=== PATIENT | female | born 1965 | race Caucasian/White ===

== ENCOUNTER 2020-05-09 07:13 | Outpatient (REF) | payer OTHER, SELFPAY ==
[2020-05-09 08:58] LABS: Alanine Aminotransferase 14 U/L (0-31); Anion Gap 9 (12-20); Aspartate Amino Transferase 13 U/L (5-31); Blood Urea Nitrogen 13 mg/dL (9-16); Calcium 8.9 mg/dL (8.4-10.2); Carbon Dioxide 31 mmol/L (22-29); Chloride 103 mmol/L (96-108); Cholesterol 186 mg/dL; Estimated Glomerular Filt Rate > 60; Glucose Random 120 mg/dL (60-115); HDL Cholesterol 44 mg/dL; LDL Cholesterol Calculated 75 mg/dl; Potassium 4.1 mmol/l (3.3-5.1); Sodium 139 mmol/L (135-145); Triglycerides 335 mg/dL
[2020-05-09 09:18] LABS: Vitamin D 25-OH Total 42.3 ng/mL (>30)
[2020-05-09 09:19] LABS: Estimated Average Glucose 114 mg/dL; Hemoglobin A1c % 5.6 %
== END 2020-05-09 07:14 | disposition home or self-care (01) ==
LOC: HO.LAB 07:13
PROVIDERS: PCP Internal Medicine; Visit Provider Internal Medicine
DX: E78.2 Mixed hyperlipidemia (principal); E55.9 Vitamin D deficiency, unspecified; R73.01 Impaired fasting glucose; Z78.0 Asymptomatic menopausal state
CPT/HCPCS: 80048; 80061; 82306; 83036; 84450; 84460

== ENCOUNTER → 2020-07-03 10:22 | Outpatient (BNVA) | payer OTHER, SELFPAY | PROVIDERS: PCP Internal Medicine; Referring Provider Internal Medicine; Visit Provider Dietitian, Registered | DX: Z76.89 Persons encountering health services in other specified circumstances (principal) ==

== ENCOUNTER 2020-09-17 | Outpatient (REF) | payer OTHER, SELFPAY ==
[2020-09-17 08:40] LABS: MANUAL DIFF FLAG NO
[2020-09-17 08:45] LABS: Basophils Percent Auto 0.2 % (0-2); Eosinophils Absolute Auto 0.2 X10*3/uL (0.0-0.4); Eosinophils Percent Auto 2.6 % (0-4); Hematocrit 42.8 % (37-47); Imm Gran Abs Auto 0.02 X10*3/uL (0.00-0.03); Imm Gran Pct Auto 0.2 % (0.0-0.4); Lymphocytes Absolute Auto 1.6 X10*3/uL (1.2-4.9); Mean Corpuscular HGB Conc 32.7 g/dl (31.0-35.0); Mean Corpuscular Hemoglobin 28.5 pg (27.0-33.0); Mean Platelet Volume 8.8 fL (9.4-12.3); Monocytes Absolute Auto 0.5 X10*3/uL (0.1-1.2); Monocytes Percent Auto 5.7 % (2-11); Neutrophils Absolute Auto 5.9 X10*3/uL (2.0-8.3); Neutrophils Percent Auto 71.3 % (45-73); Platelet Count 339 X10*3/uL (160-400); Red Blood Count 4.92 X10*6/uL (4.20-5.50); Red Cell Distribution Width 13.5 % (11.0-16.0); White Blood Count 8.2 X10*3/uL (4.8-10.8)
[2020-09-17 09:15] LABS: Lithium 0.83 mmol/L (0.60-1.20)
[2020-09-17 09:17] LABS: Alanine Aminotransferase 15 U/L (0-31); Anion Gap 13 (12-20); Aspartate Amino Transferase 13 U/L (5-31); Blood Urea Nitrogen 11 mg/dL (9-16); Calcium 9.5 mg/dL (8.4-10.2); Carbon Dioxide 29 mmol/L (22-29); Chloride 101 mmol/L (96-108); Cholesterol 192 mg/dL; Estimated Glomerular Filt Rate > 60; Glucose Fasting 109 mg/dL (60-99); HDL Cholesterol 45 mg/dL; LDL Cholesterol Calculated 80 mg/dl; Potassium 4.2 mmol/L (3.3-5.1); Sodium 139 mmol/L (135-145); Triglycerides 339 mg/dL
[2020-09-17 09:20] LABS: Alanine Aminotransferase 16 U/L (0-31); Albumin Level 4.3 g/dL (3.5-5.0); Alkaline Phosphatase 42 U/L (39-117); Anion Gap 14 (12-20); Aspartate Amino Transferase 13 U/L (5-31); Bilirubin Total 0.3 mg/dL (0.0-1.0); Blood Urea Nitrogen 11 mg/dL (9-16); Calcium 9.5 mg/dL (8.4-10.2); Carbon Dioxide 28 mmol/L (22-29); Chloride 101 mmol/L (96-108); Estimated Glomerular Filt Rate > 60; Glucose Random 110 mg/dL (60-115); Potassium 4.3 mmol/L (3.3-5.1); Sodium 139 mmol/L (135-145); Total Protein 7.4 g/dL (6.5-8.0)
[2020-09-17 09:41] LABS: Thyroid Stimulating Hormone 2.89 uIU/mL (0.32-4.0)
== END 2020-09-17 00:01 | disposition home or self-care (01) ==
LOC: HO.LAB
PROVIDERS: PCP Internal Medicine; Visit Provider Internal Medicine
DX: E55.9 Vitamin D deficiency, unspecified (principal); I10 Essential (primary) hypertension; E78.2 Mixed hyperlipidemia; Z78.0 Asymptomatic menopausal state; R73.01 Impaired fasting glucose
CPT/HCPCS: 36415; 80048; 80053; 80061; 80178; 82306; 84443; 84450; 84460; 85025

== ENCOUNTER → 2020-10-09 08:53 | Outpatient (BNVA) | payer OTHER, SELFPAY | PROVIDERS: PCP Internal Medicine; Visit Provider Dietitian, Registered ==

== ENCOUNTER → 2021-01-13 13:27 | Outpatient (BNVA) | payer OTHER, SELFPAY | PROVIDERS: PCP Internal Medicine; Visit Provider Dietitian, Registered | DX: R73.01 Impaired fasting glucose (principal) | CPT/HCPCS: 97803 ==

== ENCOUNTER 2021-02-17 07:29 | Outpatient (REF) | payer OTHER, SELFPAY ==
[2021-02-17 11:35] LABS: Estimated Average Glucose 123 mg/dL; Hemoglobin A1C 150.2735 umol/L; Hemoglobin A1c % 5.9 %
[2021-02-17 11:51] LABS: Alanine Aminotransferase 17 U/L (0-31); Aspartate Amino Transferase 13 U/L (5-31); Cholesterol 207 mg/dL; HDL Cholesterol 35 mg/dL; Triglycerides 462 mg/dL
== END 2021-02-17 07:30 | disposition home or self-care (01) ==
LOC: HO.HMGCLDS 07:29
PROVIDERS: PCP Internal Medicine; Visit Provider Internal Medicine
DX: E55.9 Vitamin D deficiency, unspecified (principal); E78.2 Mixed hyperlipidemia; R73.01 Impaired fasting glucose; Z78.0 Asymptomatic menopausal state
CPT/HCPCS: 36415; 80061; 83036; 84450; 84460

== ENCOUNTER 2021-02-27 07:39 | Outpatient (REF) | payer OTHER, SELFPAY ==
--- NOTE | ~2021-02-27 | MM_ITS ---
EXAMINATION: MM SCREENING DIGITAL BREAST TOMOSYNTHESIS, BILATERAL CLINICAL INFORMATION: Screening. Asymptomatic. The lifetime risk of breast cancer based on the Tyrer-Cuzick Model is 12%. COMPARISON: Mammography: 02/22/2020, 02/16/2019, 02/09/2018 TECHNIQUE: Digital breast tomosynthesis is performed in both the craniocaudal and mediolateral oblique views along with computer-aided detection (CAD). Synthesized 2D images are generated from the tomosynthesis. FINDINGS: The breasts are almost entirely fatty (ACR BI-RADS breast composition Category a). There are no significant masses, abnormal calcifications, or other abnormalities. The axilla and skin contours are unremarkable. Background stromal markings are stable. There is biopsy clip marker again noted central mid 12:00 left breast. No significant changes. MM/MM tomosynthesis screening BI IMPRESSION: No mammographic evidence of malignancy. ASSESSMENT: BI-RADS 1: Negative RECOMMENDATION: Routine annual mammography screening. This patient's information was entered into a reminder system with a target due date for their next mammogram.
== END 2021-02-27 07:40 | disposition home or self-care (01) ==
LOC: HO.MAMMO 07:39
PROVIDERS: PCP Internal Medicine; Visit Provider Internal Medicine
DX: Z12.31 Encounter for screening mammogram for malignant neoplasm of breast (principal)
CPT/HCPCS: 77063; 77067

== ENCOUNTER → 2021-05-14 09:54 | Outpatient (BNVA) | payer OTHER, SELFPAY | PROVIDERS: PCP Internal Medicine; Visit Provider Dietitian, Registered | DX: R73.01 Impaired fasting glucose (principal) | CPT/HCPCS: 97803 ==

== ENCOUNTER 2021-05-28 08:41 | Outpatient (REF) | payer OTHER, SELFPAY ==
[2021-05-28 11:59] LABS: Alanine Aminotransferase 12 U/L (0-31); Aspartate Amino Transferase 12 U/L (5-31); Cholesterol 136 mg/dL; HDL Cholesterol 41 mg/dL; LDL Cholesterol Calculated 57 mg/dl; Triglycerides 192 mg/dL
[2021-05-29 10:31] LABS: LDL Cholesterol Direct 59 mg/dL (<100)
== END 2021-05-28 08:42 | disposition home or self-care (01) ==
LOC: HO.HMGCLDS 08:41
PROVIDERS: PCP Internal Medicine; Visit Provider Internal Medicine
DX: E78.2 Mixed hyperlipidemia (principal)
CPT/HCPCS: 36415; 80061; 83721; 84450; 84460

== ENCOUNTER → 2021-09-16 11:00 | Outpatient (BNVA) | payer OTHER, SELFPAY | PROVIDERS: PCP Internal Medicine; Visit Provider Dietitian, Registered | DX: R73.01 Impaired fasting glucose (principal) | CPT/HCPCS: 97803 ==

== ENCOUNTER 2021-10-13 09:23 | Outpatient (REF) | payer OTHER, SELFPAY ==
--- NOTE | ~2021-10-13 | XR_ITS ---
EXAMINATION: XR FOOT, LEFT CLINICAL INFORMATION: Other enthesopathy of foot and ankle. COMPARISON: None. TECHNIQUE: AP, lateral, and oblique views of the left foot. FINDINGS: Bone alignment is normal. No fracture or dislocation is seen. There are degenerative changes at the talonavicular and navicular 1st cuneiform joint with joint space narrowing and osteophyte formation. There is a calcaneal spur at the Achilles tendon insertion. Soft tissues are otherwise unremarkable. XR/XR foot LT min 3V IMPRESSION: Degenerative changes of the midfoot and calcaneal spur at the Achilles tendon insertion.
== END 2021-10-13 09:24 | disposition home or self-care (01) ==
LOC: HO.HMGCX 09:23
PROVIDERS: Visit Provider Internal Medicine
DX: M77.50 Other enthesopathy of unspecified foot and ankle (principal)
CPT/HCPCS: 73630

== ENCOUNTER 2021-11-25 09:41 | Outpatient (REF) | payer OTHER, SELFPAY ==
[2021-11-25 11:41] LABS: Alanine Aminotransferase 14 U/L (0-31); Aspartate Amino Transferase 14 U/L (5-31); Cholesterol 155 mg/dL; HDL Cholesterol 42 mg/dL; LDL Cholesterol Calculated 72 mg/dl; Triglycerides 208 mg/dL
== END 2021-11-25 09:42 | disposition home or self-care (01) ==
LOC: HO.HMGCLDS 09:41
PROVIDERS: Visit Provider Internal Medicine
DX: E78.2 Mixed hyperlipidemia (principal)
CPT/HCPCS: 36415; 80061; 84450; 84460

== ENCOUNTER → 2021-12-15 09:04 | Outpatient (BNVA) | payer OTHER, SELFPAY | PROVIDERS: PCP Internal Medicine; Visit Provider Dietitian, Registered | DX: R73.01 Impaired fasting glucose (principal) | CPT/HCPCS: 97803 ==

== ENCOUNTER 2022-02-01 08:24 | Outpatient (REF) | payer OTHER, SELFPAY ==
[2022-02-02 12:27] LABS: BV Int Neg Control Negative (Negative); BV Int Pos Control Positive (Positive)
[2022-02-04 18:21] LABS: HPV mRNA E6/E7 rflx Not Detected (Not Detected)
== END 2022-02-01 08:25 | disposition home or self-care (01) ==
LOC: HO.LAB 08:24
PROVIDERS: Visit Provider Advanced Practice Midwife
DX: Z01.419 Encounter for gynecological examination (general) (routine) without abnormal findings (principal); Z11.51 Encounter for screening for human papillomavirus (HPV); N76.0 Acute vaginitis
CPT/HCPCS: 87480; 87510; 87624; 87660; 88142

== ENCOUNTER 2022-03-03 07:28 | Outpatient (REF) | payer OTHER, SELFPAY ==
--- NOTE | ~2022-03-03 | MM_ITS ---
EXAMINATION: MM SCREENING DIGITAL BREAST TOMOSYNTHESIS, BILATERAL CLINICAL INFORMATION: Screening. Asymptomatic. The lifetime risk of breast cancer based on the Tyrer-Cuzick Model is 12%. COMPARISON: Mammography: 02/27/2021, 02/22/2020, 02/16/2019 TECHNIQUE: Digital breast tomosynthesis is performed in both the craniocaudal and mediolateral oblique views along with computer-aided detection (CAD). Synthesized 2D images are generated from the tomosynthesis. Additional right cleavage view and bilateral CC views are provided. FINDINGS: The breasts are almost entirely fatty (ACR BI-RADS breast composition Category a). There are no significant masses, abnormal calcifications, or other abnormalities. There is biopsy clip marker 12:00 left breast. Background stromal markings are normal. No developing density. The axilla are unremarkable. No significant changes. MM/MM tomosynthesis screening BI IMPRESSION: No mammographic evidence of malignancy. ASSESSMENT: BI-RADS 1: Negative RECOMMENDATION: Routine annual mammography screening. This patient's information was entered into a reminder system with a target due date for their next mammogram.
== END 2022-03-03 07:29 | disposition home or self-care (01) ==
LOC: HO.MAMMO 07:28
PROVIDERS: PCP Internal Medicine; Visit Provider Internal Medicine
DX: Z12.31 Encounter for screening mammogram for malignant neoplasm of breast (principal)
CPT/HCPCS: 77063; 77067

== ENCOUNTER → 2022-03-17 08:57 | Outpatient (BNVA) | payer OTHER, SELFPAY | PROVIDERS: PCP Internal Medicine; Visit Provider Dietitian, Registered | DX: R73.01 Impaired fasting glucose (principal); Z71.3 Dietary counseling and surveillance | CPT/HCPCS: 97803 ==

== ENCOUNTER → 2022-06-02 11:26 | Outpatient (BNVA) | payer OTHER, SELFPAY | PROVIDERS: PCP Internal Medicine; Visit Provider Dietitian, Registered | DX: R73.01 Impaired fasting glucose (principal); Z71.3 Dietary counseling and surveillance | CPT/HCPCS: 97803 ==

== ENCOUNTER 2022-09-23 07:56 | Outpatient (REF) | payer OTHER, SELFPAY ==
[2022-09-23 12:04] LABS: Estimated Average Glucose 128 mg/dL; Hemoglobin A1c % 6.1 %
[2022-09-23 12:17] LABS: Alanine Aminotransferase 17 U/L (0-31); Anion Gap 12 (12-20); Aspartate Amino Transferase 15 U/L (5-31); Blood Urea Nitrogen 11 mg/dL (9-16); Calcium 8.6 mg/dL (8.4-10.2); Carbon Dioxide 26 mmol/L (22-29); Chloride 106 mmol/L (96-108); Cholesterol 151 mg/dL; Estimated Glomerular Filt Rate > 60; Glucose Fasting 121 mg/dL (60-99); HDL Cholesterol 40 mg/dL; LDL Cholesterol Calculated 67 mg/dl; Potassium 4.3 mmol/L (3.3-5.1); Sodium 140 mmol/L (135-145); TSH reflex Free T4 2.35 uIU/mL (0.32-4.0); Triglycerides 223 mg/dL; Vitamin D 25-OH Total 26.1 ng/mL (>30)
== END 2022-09-23 07:57 | disposition home or self-care (01) ==
LOC: HO.HMGCLDS 07:56
PROVIDERS: PCP Internal Medicine; Visit Provider Internal Medicine
DX: E55.9 Vitamin D deficiency, unspecified (principal); E78.2 Mixed hyperlipidemia; F31.9 Bipolar disorder, unspecified; R73.01 Impaired fasting glucose; Z78.0 Asymptomatic menopausal state
CPT/HCPCS: 36415; 80048; 80061; 82306; 83036; 84443; 84450; 84460

== ENCOUNTER → 2022-09-29 08:58 | Outpatient (BNVA) | payer OTHER, SELFPAY | PROVIDERS: PCP Internal Medicine; Visit Provider Dietitian, Registered | DX: R73.01 Impaired fasting glucose (principal) | CPT/HCPCS: 97803 ==

== ENCOUNTER 2022-11-04 07:14 | Outpatient (REF) | payer OTHER, SELFPAY ==
--- NOTE | ~2022-11-04 | XR_ITS ---
EXAMINATION: XR HUMERUS, LEFT CLINICAL INFORMATION: Fracture COMPARISON: None available. TECHNIQUE: AP and lateral views of the left humerus. FINDINGS: There is a minimally displaced fracture of the greater tuberosity of the humerus. No other fracture. Glenohumeral alignment is normal. There is mild osteoarthritis at the acromioclavicular joint. Soft tissues are unremarkable. XR/XR humerus LT IMPRESSION: Minimum minimally displaced left greater tuberosity fracture.
== END 2022-11-04 07:15 | disposition home or self-care (01) ==
LOC: HO.HOSX 07:14
PROVIDERS: Visit Provider Physician Assistant
DX: S42.202A Unspecified fracture of upper end of left humerus, initial encounter for closed fracture (principal); W18.30XA Fall on same level, unspecified, initial encounter; Y93.54 Activity, bowling; Y92.9 Unspecified place or not applicable; Y99.9 Unspecified external cause status
CPT/HCPCS: 73060; 99202

== ENCOUNTER → 2022-11-25 09:20 | Outpatient (BNVA) | payer OTHER, SELFPAY | PROVIDERS: PCP Internal Medicine; Visit Provider Dietitian, Registered | DX: R73.01 Impaired fasting glucose (principal) | CPT/HCPCS: 97803 ==

== ENCOUNTER 2022-12-02 08:47 | Outpatient (REF) | payer OTHER, SELFPAY ==
--- NOTE | ~2022-12-02 | XR_ITS ---
EXAMINATION: XR SHOULDER, LEFT CLINICAL INFORMATION: Pain. COMPARISON: Radiographs dated 11/04/2022. TECHNIQUE: AP neutral and scapula Y views of the left shoulder are submitted. FINDINGS: There is bony demineralization. There is subluxation of the left glenohumeral joint. A mildly displaced fracture is redemonstrated of the greater tuberosity of the proximal left humerus, in stable alignment. There is very mild periosteal callus formation noted. An additional hairline, nondisplaced fracture is suspected of the left humeral neck. The acromioclavicular and coracoclavicular intervals are normal. No abnormal soft tissue calcification or foreign body is seen. There is no left pneumothorax. XR/XR shoulder LT min 2V IMPRESSION: There is stable mild displacement of a fracture of the greater tuberosity of the proximal left humerus. There is mild associated periosteal callus formation. A nondisplaced hairline fracture is now suspected of the left humeral neck.
== END 2022-12-02 08:48 | disposition home or self-care (01) ==
LOC: HO.HOSX 08:47
PROVIDERS: Visit Provider Physician Assistant
DX: S42.202D Unspecified fracture of upper end of left humerus, subsequent encounter for fracture with routine healing (principal)
CPT/HCPCS: 73030

== ENCOUNTER 2023-01-11 07:40 | Outpatient (REF) | payer OTHER, SELFPAY ==
--- NOTE | ~2023-01-11 | XR_ITS ---
EXAMINATION: XR SHOULDER, LEFT CLINICAL INFORMATION: Reason for Exam M25.519 - Pain in unspecified shoulder COMPARISON: 12/02/2022 shoulder radiographs TECHNIQUE: Two views of the shoulder. FINDINGS: No acute fracture or dislocation. Again seen is a fracture of the greater tuberosity and left humeral neck with bridging bony callus formation suggesting ongoing healing, in unchanged alignment. Mild degenerative changes of the glenohumeral and acromioclavicular joints with degenerative spurring. Soft tissues are unremarkable. XR/XR shoulder LT min 2V IMPRESSION: 1. Again seen is a fracture of the greater tuberosity and left humeral neck with bridging bony callus formation suggesting ongoing healing, in unchanged alignment. 2. Mild degenerative changes of the shoulder.
== END 2023-01-11 07:41 | disposition home or self-care (01) ==
LOC: HO.HOSX 07:40
PROVIDERS: Visit Provider Physician Assistant
DX: M25.512 Pain in left shoulder (principal)
CPT/HCPCS: 73030; 99212

== ENCOUNTER 2023-01-13 07:08 | Outpatient (REF) | payer OTHER, SELFPAY ==
[2023-01-13 11:27] LABS: Estimated Average Glucose 117 mg/dL; Hemoglobin A1c % 5.7 %
[2023-01-13 11:54] LABS: Alanine Aminotransferase 15 U/L (0-31); Anion Gap 13 (12-20); Aspartate Amino Transferase 16 U/L (5-31); Blood Urea Nitrogen 14 mg/dL (9-16); Carbon Dioxide 26 mmol/L (22-29); Chloride 106 mmol/L (96-108); Cholesterol 135 mg/dL; Estimated Glomerular Filt Rate > 60; Glucose Fasting 124 mg/dL (60-99); HDL Cholesterol 39 mg/dL; LDL Cholesterol Calculated 54 mg/dl; Potassium 3.8 mmol/L (3.3-5.1); Sodium 141 mmol/L (135-145); Triglycerides 213 mg/dL
[2023-01-13 12:17] LABS: Vitamin D 25-OH Total 33.9 ng/mL (>30)
== END 2023-01-13 07:09 | disposition home or self-care (01) ==
LOC: HO.HMGCLDS 07:08
PROVIDERS: PCP Internal Medicine; Visit Provider Internal Medicine
DX: E55.9 Vitamin D deficiency, unspecified (principal); E78.2 Mixed hyperlipidemia; R73.01 Impaired fasting glucose; Z78.0 Asymptomatic menopausal state
CPT/HCPCS: 36415; 80048; 80061; 82306; 83036; 84450; 84460

== ENCOUNTER 2023-02-04 07:54 | Outpatient (AMB) | payer OTHER, SELFPAY ==
--- NOTE | 2023-02-04 07:55 | MHC.OFFVIS ---
Intake Vital Signs 02/04/23 07:56 Height 5 ft 2 in Weight 247 lb BMI 45.2 BP 132/80 Intake Visit Reasons: shaw Intake Note: no concerns The patient agreed to use of a neuropsychology medical consultant during this encounter. Scribed for LOLA Mccauley by Randi Panda neuropsychology medical consultant, on 02/04/2023 at 8:15 am EST Director Of Business Development Required: No Information Interpreted: non-clinical & clinical Care Team Assistant: Care Team Assistant Present (Saida Bolton SCOTT) Accompanied by: Self / Same As Patient Allergies No Known Allergies [No Known Allergies*] Allergy (Verified 02/04/23 08:01) Post menopausal: Yes HPI HPI Comments History of Present Illness Details She is a postmenopausal woman presenting for annual exam. 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 She attempts to eat a healthy diet including Calcium and Vitamin D and tries to active. 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 Denies vaginal itching and irritation. STD screening offered; she accepts. Last pap smear 2021. ASCUS with +HPV, ECC-CIN1 in 2019. Last mammogram 03/03/22. UTD on colonoscopy. [facility] Medical History ASCUS with positive high risk HPV Bipolar disorder Fracture of humerus, proximal, left, closed GERD (gastroesophageal reflux disease) Hx of fall Impaired fasting glucose Intertrigo Menopause Mild intermittent asthma Mixed dyslipidemia Psoriasis Seasonal allergies Tinea corporis Trigeminal neuralgia of left side of face Vitamin D deficiency Surgical History History of endometrial ablation Family History Father History of CVA (cerebrovascular accident) Lung cancer Depression Mother Diabetes mellitus Maternal Grandmother Diabetes mellitus Breast cancer Maternal Aunt Breast cancer Diabetes mellitus Maternal Uncle Colon cancer Brother No problems noted. Brother No problems noted. Sister No problems noted. Sister No problems noted. Son Mental health disorder Son No problems noted. Social History Household Members: None Housing: Apartment Alcohol intake: never Patient Tobacco Use Status: Former Tobacco user Years Smoked: 15 yrs e-Cigarette/Vaping Use: Never Used Second Hand Smoke Exposure: Yes service: No Current occupational status: unemployed Current occupation: right hand dominant Sexual orientation: Straight/Heterosexual Gender identity: Female Cognitive needs: No Hearing needs: No Vision needs: Yes Female Reproductive History Menstrual Menopause type: natural Total pregnancies: 2 Full term: 2 Number of Living Children: 2 Date of last pap smear: 02/02/22 Date of Mammogram: 03/03/22 Review of Systems Const All systems reviewed & are unremarkable except as noted in HPI and below Physical Exam Vital Signs: Last Vital Signs BP 132/80 02/04/23 07:56 BMI result Body Mass Index 45.2 Const General: cooperative, healthy appearing, no acute distress, well developed and alert Orientation/consciousness: patient oriented x3 HEENT Head: Yes normal to inspection Eyes General: appearance normal, both eyes and all related structures Neck Neck: Yes normal visual inspection Thyroid: Thyroid normal Chest Chest palpation & inspection: normal inspection of the chest Breast/axilla inspection: normal inspection of the breasts (no puckering, dimpling, peau de orange, retraction, discharge, masses) Breast/axilla palpation: normal palpation of the breasts Resp Effort & Inspection: normal respiratory effort GI Inspection: Yes normal to inspection and Yes obesity Palpation (GI): Soft to palpation Rectal Exam - Female: deferred General: Yes bladder normal to palpation External Female Exam: normal external appearance and normal appearance of the urethra Speculum Exam - Vagina: normal appearance of the vagina, normal palpation, normal vaginal discharge and vagina atrophic Speculum Exam - Cervix: normal appearance of the cervix, normal palpation and Other cervical findings present (atrophic changes) Bimanual exam- vagina & uterus: normal bimanual exam, normal palpation, uterine size normal, bladder normal to palpation and normal palpation Bimanual Exam- Adnexa, other: normal adnexae and no masses Skin General skin exam: no rashes or lesions noted Neuro General: patient oriented x3 Cognition (Neuro): normal cognition Extrem General: Yes normal to inspection Psych Attitude: cooperative Thought process: Normal thought process present Assessment & Plan Assessment & Plan (1) Encounter for well woman exam: Code(s): Z01.419 - Encounter for gynecological examination (general) (routine) without abnormal findings Plan: Discussed: Current recommendations for pap smears per ASCCP guidelines. Pap obtained. Breast awareness and periodic self breast exams. Encouraged yearly mammograms. Maintaining a healthy lifestyle including a well balanced diet including Calcium and Vitamin D and routine exercise. Contact office with any PMB. All of her questions and concerns were addressed to the best of my ability. RTO in one year for AG. Orders: Orders Pap Smear Today Z01.419 - Encounter for gynecological examination (general) (routine) without abnormal findings Coding Level of Care Code Est Pt Prev Care 40-64y(72699) Diagnoses Encounter for well woman exam Z01.419
[2023-02-04 07:56] VITALS: BP 132/80; BMI 45.2
== END 2023-02-04 08:25 | disposition home or self-care (01) ==
PROVIDERS: PCP Internal Medicine; Visit Provider Advanced Practice Midwife
DX: Z01.419 Encounter for gynecological examination (general) (routine) without abnormal findings (principal)
CPT/HCPCS: 99396

== ENCOUNTER 2023-02-04 07:54 | Outpatient (REF) | payer OTHER, SELFPAY ==
[2023-02-11 08:59] LABS: HPV mRNA E6/E7 rflx Not Detected (Not Detected)
== END 2023-02-04 07:55 | disposition home or self-care (01) ==
LOC: HO.LNP 07:54
PROVIDERS: PCP Internal Medicine; Visit Provider Advanced Practice Midwife
DX: Z01.419 Encounter for gynecological examination (general) (routine) without abnormal findings (principal); Z11.51 Encounter for screening for human papillomavirus (HPV)
CPT/HCPCS: 87624; 88142

== ENCOUNTER 2023-03-03 10:00 | Outpatient (RCR) | payer OTHER, SELFPAY ==
--- NOTE | 2023-03-03 12:12 | MHC.PT.DC ---
[facility] [place] Office [place] Office [place] Office [address] Dheeraj Dos Santos [address] [phone] F: [phone] F: [phone] F: [phone] F: [phone] Physical Therapy Discharge Report Diagnosis: Proximal Humerus Fracture L Date of Surgery: Date of Evaluation: 12/16/22 Date of Discharge: Treatments to Date: 18 Cancellations to Date: No Shows to Date: Discharge Status: Discharge Summary: Haritha is in agreement with discharge today. she has met most of her goals and has improved her function. She is independent with HEP. She has been an active participant in her recovery. If patient remains compliant with exercise program at home then she should continue to see improvement in pain and function. Electronically signed by: Please sign and return to therapist. Thank you for your referral.
== END 2023-03-03 12:15 | disposition home or self-care (01) ==
LOC: HO.PTCHIC 10:00
PROVIDERS: Visit Provider Physician Assistant
DX: S42.202A Unspecified fracture of upper end of left humerus, initial encounter for closed fracture (principal)
CPT/HCPCS: 97110; 97140; 97161

== ENCOUNTER 2023-03-04 07:44 | Outpatient (REF) | payer OTHER, SELFPAY ==
--- NOTE | ~2023-03-04 | MM_ITS ---
EXAMINATION: MM SCREENING DIGITAL BREAST TOMOSYNTHESIS, BILATERAL CLINICAL INFORMATION: Screening. Asymptomatic. COMPARISON: Mammography: This study is compared with prior exams dating back to 2018. TECHNIQUE: Digital breast tomosynthesis is performed in both the craniocaudal and mediolateral oblique views along with computer-aided detection (CAD). Synthesized 2D images are generated from the tomosynthesis. FINDINGS: The breasts are almost entirely fatty (ACR BI-RADS breast composition Category a). There are no significant masses, abnormal calcifications, or other abnormalities. There is tissue marker present in the upper outer quadrant of the left breast from prior benign percutaneous biopsy. MM/MM tomosynthesis screening BI IMPRESSION: No mammographic evidence of malignancy. ASSESSMENT: BI-RADS BI-RADS 2 - Benign Findings RECOMMENDATION: Routine annual mammography screening. 1 year F/U This examination should not preclude the clinical evaluation of a suspicious palpable abnormality. This patient's information was entered into a reminder system with a target due date for their next mammogram.
== END 2023-03-04 07:45 | disposition home or self-care (01) ==
LOC: HO.MAMMO 07:44
PROVIDERS: PCP Internal Medicine; Visit Provider Internal Medicine
DX: Z12.31 Encounter for screening mammogram for malignant neoplasm of breast (principal)
CPT/HCPCS: 77063; 77067

== ENCOUNTER → 2023-03-04 08:00 | Outpatient (BNV) | payer OTHER, SELFPAY | PROVIDERS: PCP Internal Medicine; Visit Provider Radiology Diagnostic Radiology | DX: Z12.31 Encounter for screening mammogram for malignant neoplasm of breast (principal) | CPT/HCPCS: 77063; 77067 ==

== ENCOUNTER 2023-03-07 08:41 | Outpatient (AMB) | payer OTHER, SELFPAY ==
[2023-03-07 08:59] VITALS: BMI 45.6
--- NOTE | 2023-03-07 08:59 | MHC.AMNUTRGE ---
Intake VS Expanded 03/07/23 08:59 Height 5 ft 2 in Weight 249 lb 9.012 oz BMI 45.6 Intake Visit Reasons: pre DM Allergies No Known Allergies [No Known Allergies*] Allergy (Verified 02/04/23 08:01) HPI Nutrition Presentation Details Pt presents for MNT for pre DM Pt reports keeping sedentary related to injuries (arm, going for PT) Following healthy plate method, working on reducing total carbs. Most Recent Diabetes Results: Cholesterol 135 mg/dL 01/13/23 HDL Cholesterol 39 mg/dL 01/13/23 Triglycerides 213 mg/dL 01/13/23 Creatinine 0.87 mg/dL (0.5-1.4) 01/13/23 Blood Urea Nitrogen 14 mg/dL (9-16) 01/13/23 Sodium 141 mmol/L (135-145) 01/13/23 Potassium 3.8 mmol/L (3.3-5.1) 01/13/23 Chloride 106 mmol/L (96-108) 01/13/23 Carbon Dioxide 26 mmol/L (22-29) 01/13/23 Calcium 9.0 mg/dL (8.4-10.2) 01/13/23 AST 16 U/L (5-31) 01/13/23 ALT 15 U/L (0-31) 01/13/23 [facility] Medical History ASCUS with positive high risk HPV Bipolar disorder Fracture of humerus, proximal, left, closed GERD (gastroesophageal reflux disease) Hx of fall Impaired fasting glucose Intertrigo Menopause Mild intermittent asthma Mixed dyslipidemia Psoriasis Seasonal allergies Tinea corporis Trigeminal neuralgia of left side of face Vitamin D deficiency Surgical History History of endometrial ablation Family History Father History of CVA (cerebrovascular accident) Lung cancer Depression Mother Diabetes mellitus Maternal Grandmother Diabetes mellitus Breast cancer Maternal Aunt Breast cancer Diabetes mellitus Maternal Uncle Colon cancer Brother No problems noted. Brother No problems noted. Sister No problems noted. Sister No problems noted. Son Mental health disorder Son No problems noted. Social History Household Members: None Housing: Apartment Alcohol intake: never Patient Tobacco Use Status: Former Tobacco user Years Smoked: 15 yrs e-Cigarette/Vaping Use: Never Used Second Hand Smoke Exposure: Yes service: No Current occupational status: unemployed Current occupation: right hand dominant Sexual orientation: Straight/Heterosexual Gender identity: Female Cognitive needs: No Hearing needs: No Vision needs: Yes Assessment & Plan Assessment & Plan (1) Impaired fasting glucose: Code(s): R73.01 - Impaired fasting glucose Plan: Review low fat/low cholesterol food concepts and Ca , Vit D sources of foods est kcal needs as per [place] [facility] Jeor: 1625 kcal/day (40% carb, 30% fat/prot) est prot needs as per 0.8-1.0 g adjusted Bw (73 kg) = 58-73 g/day est fluid needs as per 25 ml/kg bw: 1825 ml/d. Rec fiber intake 12-25 g as tolerated NA: < 1500 mg/d Noted A1c at 6.1% on 09/2022 (increased from previous A1c) and Tg at 223 mg/dl (09/2022) increased from 208 mg/dl Educate patient on: (R= Reviewed, V = verbalizes understanding N/R= Needs review N/A= not applicable) Difference between complex carbohydrates and simple carbohydrates, role of fiber: R Differences between fats (MUFA/PUFA/saturated fats, trans fats) and food sources of various fats: R Food sources of sodium and salt and healthy modifications for heart health and kidney health: R Vitamins and minerals: R Physical activity: benefits and precaution: R (when cleared by MD) Patient Instructions: Continue working on reducing fats, empty calories snacks Continue to watching total carbs at meal time , reduce to 45 g or less at meal time Choose foods with collagen (bone broth, gelatin, fish) choose a serving at least once a day keep hydrated by having water with meals Coding Level of Care Code Nutr Indiv Subseq (51226) Diagnoses Impaired fasting glucose R73.01 Time Spent (min) 25
== END 2023-03-07 09:39 | disposition home or self-care (01) ==
PROVIDERS: PCP Internal Medicine; Visit Provider Dietitian, Registered
DX: R73.01 Impaired fasting glucose (principal)

== ENCOUNTER → 2023-03-07 08:41 | Outpatient (BNVA) | payer OTHER, SELFPAY | PROVIDERS: Visit Provider Dietitian, Registered | DX: R73.01 Impaired fasting glucose (principal); Z71.3 Dietary counseling and surveillance | CPT/HCPCS: 97803 ==

== ENCOUNTER 2023-03-08 08:36 | Outpatient (REF) | payer OTHER, SELFPAY ==
--- NOTE | ~2023-03-08 | XR_ITS ---
EXAMINATION: XR SHOULDER, LEFT CLINICAL INFORMATION: Pain COMPARISON: Previous x-ray most recent December 2022 TECHNIQUE: Two views of the left shoulder. FINDINGS: Healing left humeral neck and greater tuberosity fracture appears unchanged. Mild arthritis at the acromioclavicular and glenohumeral joints. Normal soft tissues. XR/XR shoulder LT min 2V IMPRESSION: Healing left humeral neck and greater tuberosity fracture.
== END 2023-03-08 08:37 | disposition home or self-care (01) ==
LOC: HO.HOSX 08:36
PROVIDERS: Visit Provider Physician Assistant
DX: S42.202A Unspecified fracture of upper end of left humerus, initial encounter for closed fracture (principal)
CPT/HCPCS: 73030

== ENCOUNTER 2023-05-11 08:04 | Outpatient (REF) | payer OTHER, SELFPAY ==
[2023-05-11 11:31] LABS: Estimated Average Glucose 120 mg/dL; Hemoglobin A1c % 5.8 % (<6.0)
[2023-05-11 11:53] LABS: Alanine Aminotransferase 17 U/L (0-31); Aspartate Amino Transferase 16 U/L (5-31); Cholesterol 164 mg/dL (<200); Glucose Fasting 108 mg/dL (60-99); HDL Cholesterol 43 mg/dL (>40); LDL Cholesterol Calculated 73 mg/dL (<100); Triglycerides 243 mg/dL (<150)
[2023-05-11 11:56] LABS: Vitamin D 25-OH Total 40.5 ng/mL (>30)
== END 2023-05-11 08:05 | disposition home or self-care (01) ==
LOC: HO.HMGCLDS 08:04
PROVIDERS: PCP Internal Medicine; Visit Provider Internal Medicine
DX: E55.9 Vitamin D deficiency, unspecified (principal); R73.01 Impaired fasting glucose; E78.2 Mixed hyperlipidemia; Z78.0 Asymptomatic menopausal state
CPT/HCPCS: 36415; 80061; 82306; 82947; 83036; 84450; 84460

== ENCOUNTER 2023-05-13 09:09 | Outpatient (AMB) | payer OTHER, SELFPAY ==
[2023-05-13 10:00] VITALS: BP 128/84; PULSE 83; O2SAT 98; BMI 45.9
--- NOTE | 2023-05-13 10:00 | A.OFFPC_ITS ---
Vital Signs 05/13/23 10:00 Height 5 ft 2 in Weight 251 lb 2 oz BMI 45.9 BP 128/84 Blood Pressure Location Rt brachial Position Sitting Pulse 83 Pulse Source Pulse Oximeter Pulse Oximetry (%) 98 Oxygen Delivery Method Room Air Intake Visit Reasons: Annual PE Allergies No Known Allergies [No Known Allergies*] Allergy (Verified 10/31/23 10:59) Medication List - Last Reconciled 05/13/23 by Raquel Hurley MD acetaminophen mg PO albuterol sulfate 90 mcg/actuation 2 inhalations inhalation Q6H PRN atorvastatin 20 mg PO DAILY bupropion HCl 300 mg PO QAM carbamazepine 200 mg PO BID cetirizine 10 mg PO BEDTIME clotrimazole-betamethasone 1-0.05 % 1 appl topical BID 4 weeks diclofenac sodium 1% (Arthritis Pain (diclofenac)) 2 grams topical QID PRN fluticasone propionate 50 mcg/actuation 1 spray intranasal DAILY ibuprofen 600 mg PO Q6H PRN lithium carbonate ER 0 mg PO omega-3 fatty acids-fish oil 300-1,000 mg 1 cap PO BID omeprazole 20 mg PO DAILY Tobacco use date assessed: 05/13/23 Dental Screening Dental Screen Date: 05/13/23 Did you have a dental visit in the last 12 months?: No Did you have a dental problem in the last 6 months where you did not have access to dental care?: No Was dental information given to patient?: No HPI Annual PE HPI Details 58-year-old lady with hyperlipidemia, mi ld intermittent asthma, chronic GERD, psoriasis, impaired fasting glucose, trigeminal neuralgia, history of left humeral fracture 09/2022 and bipolar disorder, here today for her physical exam. She is up-to-date with her screening mammogram and screening for cervical cancer and is up-to-date with her screening colonoscopy last done in 2015 with negative findings, due again in 2025. Has been feeling well with no complaints at pres ent. Compliant with her medications [facility] Medical History (Updated 12/07/23 @ 02:32 by Raquel Hurley MD) Hx of fall Fracture of humerus, proximal, left, closed Intertrigo Tinea corporis Trigeminal neuralgia of left side of face ASCUS with positive high risk HPV Seasonal allergies Bipolar disorder Vitamin D deficiency Menopause Mild intermittent asthma GERD (gastroesophageal reflux disease) Psoriasis Impaired fasting glucose Mixed dyslipidemia Surgical History History of endometrial ablation Family History Father History of CVA (cerebrovascular accident) Lung cancer Depression Mother Diabetes mellitus Maternal Grandmother Diabetes mellitus Breast cancer Maternal Aunt Breast cancer Diabetes mellitus Maternal Uncle Colon cancer Brother No problems noted. Brother No problems noted. Sister No problems noted. Sister No problems noted. Son Mental health disorder Son No problems noted. Social History Household Members: None Housing: Apartment Alcohol intake: never Patient Tobacco Use Status: Former Tobacco user Years Smoked: 15 yrs e-Cigarette/Vaping Use: Never Used Second Hand Smoke Exposure: Yes service: No Current occupational status: unemployed Current occupation: right hand dominant Sexual orientation: Straight/Heterosexual Gender identity: Female Cognitive needs: No Hearing needs: No Vision needs: Yes Questionnaire Thrive Questionnaire Date Thrive assessed: 10/27/22 I am a: Patient What is your living situation today?: I have a place to live, but I am worried about losing it in the future Within the past 12 months, did the food you bought not last and you didn't have the money to get more?: Sometimes True Within the past 12 months, did you worry whether your food would run out before you got money to buy more?: Sometimes True Please select the resources that you would like help with: None AUDIT C Alcohol Use Questionnaire (AUDIT-C) 1. How often do you have a drink containing alcohol?: Monthly or less 2. How many drinks containing alcohol do you have on a typical day when you are drinking?: 1 or 2 3. How often do you have six or more drinks on one occasion?: Never Total Score: 1 SAM-7 AMB Questionnaire SAM-7 Date SAM - 7 assessed: 10/14/22 Feeling nervous, anxious, or on edge: 1 = Several days Not being able to stop or control worryin = Not at all Worrying too much about different things: 1 = Several days Trouble relaxin = Several days Being so restless that it is hard to sit still: 0 = Not at all Becoming easily annoyed or irritable: 0 = Not at all Feeling afraid as if something awful might happen: 0 = Not at all Total SAM-7 score (0-4 normal; 5-9 mild; 10-14 moderate; 15-21 severe): 3 Source: Developed by Drs. Brett Espinoza, Allison Rutledge, Yanick Mac and colleagues, with an educational aleksey from [employer]. Review of Systems Const Denies body aches, Denies fever(s), Denies headache(s) and Denies weakness Eyes Details: Goes to [address] [place] [address] for routine eye exam, currently up-to-date ENT Denies dizziness, Denies headache(s), Denies nasal congestion, Denies nasal discharge and Denies sore throat Card Denies chest pain, Denies lightheadedness and Denies dyspnea Resp Denies chest congestion, Denies cough and Denies dyspnea GI Denies abdominal pain, Denies change in bowel habits and Denies heartburn Reports no additional complaints Musc Details: History of fracture of left humerus 09/2022 after a fall while bowling Reports no additional complaints Skin/Breast Denies breast pain and Denies breast mass Neuro Denies dizziness, Denies headache(s) and Denies weakness Psych Reports no additional complaints Endo Reports no additional complaints Wagner/Lymph Denies easy bleeding and Denies easy bruising Aller/Immun Reports no additional complaints Physical exam (Primary Care) Vital Signs: Last Vital Signs Pulse 83 05/13/23 10:00 BP 128/84 05/13/23 10:00 Pulse Ox 98 05/13/23 10:00 Oxygen Delivery Method Room Air 05/13/23 10:00 BMI result Body Mass Index 45.9 BMI Assessment/Plan discussion: High BMI High, discussed plan: lifestyle, dietary and physical activity Tobacco/Smoking Status: Tobacco use Status Tobacco use date assessed 05/13/23 05/13/23 10:04 Patient Tobacco Use Status Former Tobacco user 05/13/23 10:04 e-Cigarette/Vaping Use Never Used 05/13/23 10:04 Thrive Assessment: Date of Thrive Assessment Date Thrive assessed 10/27/22 05/13/23 10:04 Const General: comfortable, no acute distress and alert Nutritional Appearance: obese morbidly obese Orientation/consciousness: patient oriented x3 HENMT Mouth: Normal oral and palatal mucosa present, oropharynx normal and moist mucous membranes Eyes General: appearance normal, both eyes and all related structures Neck Neck: Yes full ROM, Yes no lymphadenopathy, Yes no meningeal signs and Yes supple Chest Breast/axilla palpation: normal palpation of the breasts Resp Effort & Inspection: normal respiratory effort and able to speak in complete sentences Auscultation: clear to auscultation bilaterally Cardio Rate: regular rate Rhythm: regular rhythm Heart sounds: S1 normal heart sound present and S2 normal heart sound present GI Palpation (GI): Soft to palpation, nontender and no masses Auscultation: normal bowel sounds Other: Goes to [facility] for her routine Pap and pelvic exam Back/Spine/Pelvis Back: No back tenderness Skin General skin exam: no rashes or lesions noted Neuro General: patient oriented x3, gait normal, tone normal, moves all extremities, Normal light touch and pain sensation, no meningeal signs and no focal motor deficits Extrem General: Yes full ROM, Yes no joint enlargement, Yes no clubbing, cyanosis or edema and Yes normal gait Psych Appearance: grossly normal and well kempt Mental Status: mental status grossly normal Speech and movement: Normal speech and movement present Affect: normal affect Office Procedures Flu Questionnaire Does the patient have a severe egg allergy?: No Does the patient have severe life threatening allergies?: No Does the patient have a fever or illness today?: No Has the patient ever had Guillain-[place] Syndrome?: No Has the patient ever had any past reaction to a flu shot?: No Immunizations flu vacc [id number] 6mos up(PF) 60 mcg(15 mcgx4)/0.5 mL IM syringe Performing Provider: Raquel Hurley MD Performing Location: [facility] Administered by: Nora Ramirez CMA on 05/13/23 10:16 Dose Route Admin Location Dispensed Lot Number Expiration Date NDC Internal Affairs Commander 0.5 mL IM Right Deltoid 0.5 mL [id number] 01/22/24 [id number] Clinicbook VIS Given Date VIS Provided VIS Publication Date 05/13/23 Single Vaccine 21 Eligibility Eligibility Date Funding Source Not [facility] Eligible 05/13/23 Private Results Reviewed Results Reviewed: Laboratory Tests 05/11/23 08:10 Estimat Average Glucose 120 Hemoglobin A1c % 5.8 Name: Haritha Gallegos Age/Sex: 58/F : 1965 Unit#: [id number] Attend Dr: Raquel Hurley MD Re05/11/23 Status: DEP REF Location: [facility] Disch: SPEC : [id number] DIONE: 05/11/23 STATUS: COMP REQ : [id number] RECD: 05/11/[address]: Raquel Hurley MD COMP: 05/11/23 ENTERED: 05/11/[address]: ORDERED: Glu Fasting, AST, ALT, Lipid Panel, Vitamin D 25-OH Test Result Flag Reference FBS 108 H 60-99 mg/dL A fasting glucose from 100-125 mg/dl is considered impaired (pre-diabetes). AST (GOT) 16 5-31 U/L ALT (GPT) 17 0-31 U/L Triglyceride 243 H <150 mg/dL Desirable Triglyceride: less than 150 mg/dL Borderline High Triglyceride 150-199 mg/dL High Triglyceride: 200-499 mg/dL Very High Triglyceride: greater than or equal to 5OO mg/dL Cholesterol 164 <200 mg/dL Desirable Cholesterol: less than 200 mg/dL Borderline High Cholesterol: 200-239 mg/dL High Cholesterol: greater than 239 mg/dL LDL Calculated 73 <100 mg/dL Desirable LDL: less than 100 mg/dL Near Optimal/Above Optimal LDL: 110-129 mg/dL Borderline High LDL: 130-159 mg/dL High LDL: 160-189 mg/dL Very High LDL: greater than or equal to 190 mg/dL HDL 43 >40 mg/dL Desirable HDL: greater than 40 mg/dL Note: This HDL assay may give artificially low results in patients with liver disease. Vit D 25-OH Tot 40.5 >30 ng/mL Health Based Reference Values* < 20 ng/mL Deficient 20-30 ng/mL Insufficient > 30 ng/mL Sufficient Assessment and Plan Assessment & Plan (1) Annual visit for general adult medical examination with abnormal findings: Code(s): Z00.01 - Encounter for general adult medical examination with abnormal findings Plan: Recent lab results reviewed with patient. Continue with regular dental visit every 6 months and yearly eye exams. . Take adequate calcium in diet and vitamin-D 3 at 2000 IU per cap once a day, in addition to weight-bearing exercises to help maintain good muscle tone and weight control. Instructed to do self-breast exam, and t yearly mammogram, up-to-date. Initial bone density scan ordered to treat for osteoporosis. History of recent fracture of left humerus after a fall. Up-to-date with her cervical cancer screening and colon cancer screening with last colonoscopy done in 2016. Has had her COVID vaccination but did not get the booster, gets yearly flu shots, up-to-date with her shingles vaccine and Tdap (2) Screening for osteoporosis: Code(s): Z13.820 - Encounter for screening for osteoporosis Plan: Ordered a bone density scan, (3) Vitamin D deficiency: Code(s): E55.9 - Vitamin D deficiency, unspecified Plan: Check vitamin-D level (4) Impaired fasting glucose: Code(s): R73.01 - Impaired fasting glucose Plan: Your fasting blood sugars were elevated above 100 mg/dL, but latest hemoglobin A1c within normal limits at 5.8%.. Impaired glucose metabolism increases your risk for developing diabetes mellitus type 2, as well as heart attack and stroke later on. Lifestyle changes at just weight loss, healthy eating habits, and regular exercise are important, and can prevent the progression to diabetes (5) Mixed dyslipidemia: Code(s): E78.2 - Mixed hyperlipidemia Plan: Reviewed recent fasting lipid panel results with patient which showed presence of elevated triglycerides but rest of lipid panel are within normal limits. Continue with atorvastatin 20 mg daily and [place] 3 fatty acid supplements, reinforced importance of following a low-cholesterol diet getting regular exercise. Repeat fasting lipid panel in October 2023 (6) Trigeminal neuralgia of left side of face: Code(s): G50.0 - Trigeminal neuralgia Plan: Currently on carbamazepine 200 mg 1 tablet twice a day, followed by Neurology (7) Seasonal allergies: Code(s): J30.2 - Other seasonal allergic rhinitis Plan: Takes cetirizine 10 mg once a day as needed (8) Bipolar disorder: Comment: followed at [facility] Code(s): F31.9 - Bipolar disorder, unspecified Plan: Currently followed by psychiatry at [facility], on bupropion, (9) Mild intermittent asthma: Code(s): J45.20 - Mild intermittent asthma, uncomplicated (10) GERD (gastroesophageal reflux disease): Code(s): K21.9 - Gastro-esophageal reflux disease without esophagitis Plan: On omeprazole 20 mg daily Orders: Orders XR DEXA axial skeleton 03/06/24 S42.202A - Unspecified fracture of upper end of left humerus, initial encounter for closed fracture, Z13.820 - Encounter for screening for osteoporosis Microalbumin, Random (w Creat) 10/24/23 Z78.0 - Asymptomatic menopausal state, E55.9 - Vitamin D deficiency, unspecified, R73.01 - Impaired fasting glucose, E78.2 - Mixed hyperlipidemia Lipid Panel 10/24/23 Z78.0 - Asymptomatic menopausal state, E55.9 - Vitamin D deficiency, unspecified, R73.01 - Impaired fasting glucose, E78.2 - Mixed hyperlipidemia Alanine Aminotransferase 10/24/23 Z78.0 - Asymptomatic menopausal state, E55.9 - Vitamin D deficiency, unspecified, R73.01 - Impaired fasting glucose, E78.2 - Mixed hyperlipidemia Hemoglobin A1c 10/24/23 Z78.0 - Asymptomatic menopausal state, E55.9 - Vitamin D deficiency, unspecified, R73.01 - Impaired fasting glucose, E78.2 - Mixed hyperlipidemia Influenza [id number] Immunization 05/13/23 Z23 - Encounter for immunization Basic Metabolic Panel Fasting 10/24/23 Z78.0 - Asymptomatic menopausal state, E55.9 - Vitamin D deficiency, unspecified, R73.01 - Impaired fasting glucose, E78.2 - Mixed hyperlipidemia Aspartate Amino Transferase 10/24/23 Z78.0 - Asymptomatic menopausal state, E55.9 - Vitamin D deficiency, unspecified, R73.01 - Impaired fasting glucose, E78.2 - Mixed hyperlipidemia Vitamin D 25-OH Total 10/24/23 Z78.0 - Asymptomatic menopausal state, E55.9 - Vitamin D deficiency, unspecified, R73.01 - Impaired fasting glucose, E78.2 - Mixed hyperlipidemia Coding Level of Care Code Est Pt Prev Care 40-64y(13019) Diagnoses Annual visit for general adult medical examination with abnormal findings Z00.01 Screening for osteoporosis Z13.820 Vitamin D deficiency E55.9 Impaired fasting glucose R73.01 Mixed dyslipidemia E78.2 Trigeminal neuralgia of left side of face G50.0 Seasonal allergies J30.2 Bipolar disorder F31.9 Mild intermittent asthma J45.20 GERD (gastroesophageal reflux disease) K21.9
== END 2023-05-13 10:39 | disposition home or self-care (01) ==
PROVIDERS: PCP Internal Medicine; Visit Provider Internal Medicine
DX: Z00.01 Encounter for general adult medical examination with abnormal findings (principal); Z13.820 Encounter for screening for osteoporosis; E55.9 Vitamin D deficiency, unspecified; R73.01 Impaired fasting glucose; E78.2 Mixed hyperlipidemia; G50.0 Trigeminal neuralgia; J30.2 Other seasonal allergic rhinitis; F31.9 Bipolar disorder, unspecified; J45.20 Mild intermittent asthma, uncomplicated; K21.9 Gastro-esophageal reflux disease without esophagitis
CPT/HCPCS: 90471; 90686; 99499

== ENCOUNTER 2023-06-09 09:11 | Outpatient (AMB) | payer OTHER, SELFPAY ==
--- NOTE | 2023-06-09 09:28 | MHC.OFFVIS ---
Intake Vital Signs 06/09/23 09:34 Height 5 ft 2 in Weight 251 lb BMI 45.9 Handedness Right Intake Visit Reasons: OV-Left humerus fx Intake Note: Haritha is a 57 year old right hand dominant female who presents today for a follow up of left humerus fx, DOI 10/17/22. Patient reports still having a bit pain near her bicep and shoulder due to falling on it about a week ago. She states that her arm feels a bit sore. Allergies No Known Allergies [No Known Allergies*] Allergy (Verified 05/13/23 10:27) HPI OV-Left humerus fx HPI Details 58-year-old female who presents in the office today for a follow up of a left proximal humerus fracture, which occurred on 10/17/2022 status post a fall while bowling. The patient reports having some slight pain near her bicep and shoulder due to falling on it about a week ago. She confirms soreness in the left upper extremity. [facility] Medical History ASCUS with positive high risk HPV Bipolar disorder Fracture of humerus, proximal, left, closed GERD (gastroesophageal reflux disease) Hx of fall Impaired fasting glucose Intertrigo Menopause Mild intermittent asthma Mixed dyslipidemia Psoriasis Seasonal allergies Tinea corporis Trigeminal neuralgia of left side of face Vitamin D deficiency Surgical History History of endometrial ablation Family History Father History of CVA (cerebrovascular accident) Lung cancer Depression Mother Diabetes mellitus Maternal Grandmother Diabetes mellitus Breast cancer Maternal Aunt Breast cancer Diabetes mellitus Maternal Uncle Colon cancer Brother No problems noted. Brother No problems noted. Sister No problems noted. Sister No problems noted. Son Mental health disorder Son No problems noted. Social History Household Members: None Housing: Apartment Alcohol intake: never Patient Tobacco Use Status: Former Tobacco user Years Smoked: 15 yrs e-Cigarette/Vaping Use: Never Used Second Hand Smoke Exposure: Yes service: No Current occupational status: unemployed Current occupation: right hand dominant Sexual orientation: Straight/Heterosexual Gender identity: Female Cognitive needs: No Hearing needs: No Vision needs: Yes Review of Systems Const All systems reviewed & are unremarkable except as noted in HPI and below Physical Exam Vital Signs: BMI result Body Mass Index 45.9 Const General: cooperative, healthy appearing and no acute distress Resp Effort & Inspection: normal respiratory effort and able to speak in complete sentences Cardio Rate: regular rate Peripheral pulses: Peripheral pulses 2+ throughout GI Palpation (GI): Soft to palpation Skin Lesions: no lesions Rashes: no rashes Extrem Other: Left shoulder: Full ROM in all planes. 3/5 strength with empty can. Negative drop arm. NVI. Assessment & Plan Assessment & Plan (1) Fracture of humerus, proximal, left, closed: Code(s): S42.A - Unspecified fracture of upper end of left humerus, initial encounter for closed fracture Qualifiers: Encounter type: subsequent encounter Fracture healing: with routine healing Fracture morphology: unspecified fracture morphology Qualified Code(s): S42.D - Unspecified fracture of upper end of left humerus, subsequent encounter for fracture with routine healing Plan Ms. Gallegos is a 58-year-old female who presents in the office today for a follow up of a left proximal humerus fracture, which occurred on 10/17/2022 status post a fall while bowling. The patient reports having some slight pain near her bicep and shoulder due to falling on it about a week ago. She confirms soreness in the left upper extremity. The patient will continue to work on the at home exercise program she learned from prior therapy appointments. I did explain that if the patient is still having some soreness afer her fall in 2 months I would like for her to call the office and we can schedule an MRI at that time. However, I do not think this will be necessary. I do want to give the patient options shoud her symptoms not improve. Follow up will be PRN, or sooner if needed. X-rays of the left shoulder which were obtained while in the office today and were reviewed by me, Swapna Forte PA-C, revealed healed great tuberosity and humeral neck fracture. Orders: Orders XR shoulder LT min 2V Today M25.519 - Pain in unspecified shoulder Patient Instructions: Scribed for Swapna Forte PA-C by Veena Goodwin medical support assistant, on 06/09/2023 at 9:14 am, EST. Coding Level of Care Code Est Pt Level 3 (38999) Diagnoses Closed fracture of proximal end of left humerus with routine healing, unspecified fracture morphology, subsequent encounter S42.D Encounter type: subsequent encounter Fracture healing: with routine healing Fracture morphology: unspecified fracture morphology
[2023-06-09 09:34] VITALS: BMI 45.9
== END 2023-06-09 09:45 | disposition home or self-care (01) ==
PROVIDERS: PCP Internal Medicine; Visit Provider Physician Assistant
DX: S42.202D Unspecified fracture of upper end of left humerus, subsequent encounter for fracture with routine healing (principal); M75.42 Impingement syndrome of left shoulder
CPT/HCPCS: 99213

== ENCOUNTER 2023-06-09 10:12 | Outpatient (AMB) | payer OTHER, SELFPAY ==
[2023-06-09 10:47] VITALS: BMI 45.6
--- NOTE | 2023-06-09 10:47 | A.OFFVIS_ITS ---
Intake VS Expanded 06/09/23 10:47 Height 5 ft 2 in Weight 249 lb 9.012 oz BMI 45.6 Intake Visit Reasons: pre DM Allergies No Known Allergies [No Known Allergies*] Allergy (Verified 05/13/23 10:27) HPI Nutrition Presentation Details Pt presents for MNT for IFG Pt is here to review nutrition concepts related to high fat and elevated Tg Most Recent Diabetes Results: Cholesterol 164 mg/dL (<200) 05/11/23 HDL Cholesterol 43 mg/dL (>40) 05/11/23 Triglycerides 243 mg/dL (<150) H 05/11/23 AST 16 U/L (5-31) 05/11/23 ALT 17 U/L (0-31) 05/11/23 PFS Medical History ASCUS with positive high risk HPV Bipolar disorder Fracture of humerus, proximal, left, closed GERD (gastroesophageal reflux disease) Hx of fall Impaired fasting glucose Intertrigo Menopause Mild intermittent asthma Mixed dyslipidemia Psoriasis Seasonal allergies Tinea corporis Trigeminal neuralgia of left side of face Vitamin D deficiency Surgical History History of endometrial ablation Family History Father History of CVA (cerebrovascular accident) Lung cancer Depression Mother Diabetes mellitus Maternal Grandmother Diabetes mellitus Breast cancer Maternal Aunt Breast cancer Diabetes mellitus Maternal Uncle Colon cancer Brother No problems noted. Brother No problems noted. Sister No problems noted. Sister No problems noted. Son Mental health disorder Son No problems noted. Household Members: None Housing: Apartment Alcohol intake: never Patient Tobacco Use Status: Former Tobacco user Years Smoked: 15 yrs e-Cigarette/Vaping Use: Never Used Second Hand Smoke Exposure: Yes service: No Current occupational status: unemployed Current occupation: right hand dominant Sexual orientation: Straight/Heterosexual Gender identity: Female Cognitive needs: No Hearing needs: No Vision needs: Yes Assessment & Plan Assessment & Plan (1) Impaired fasting glucose: Code(s): R73.01 - Impaired fasting glucose Plan: Review low fat/low cholesterol food concepts and Ca , Vit D sources of foods est kcal needs as per [place] Jeor: 1625 kcal/day (40% carb, 30% fat/prot) est prot needs as per 0.8-1.0 g adjusted Bw (73 kg) = 58-73 g/day est fluid needs as per 25 ml/kg bw: 1825 ml/d. Rec fiber intake 12-25 g as tolerated NA: < 1500 mg/d Noted A1c at 6.1% on 09/2022 (increased from previous A1c) and Tg at 223 mg/dl (09/2022) increased from 208 mg/dl Educate patient on: (R= Reviewed, V = verbalizes understanding N/R= Needs review N/A= not applicable) * Difference between complex carbohydrates and simple carbohydrates, role of fiber: R * Differences between fats (MUFA/PUFA/saturated fats, trans fats) and food sources of various fats: R * Food sources of sodium and salt and healthy modifications for heart health and kidney health: R * Vitamins and minerals: R * Physical activity: benefits and precaution: R (when cleared by MD) Patient Instructions: Reduce on fried foods, (al[place]ian fries/fritters) Continue keeping eye on the sugary foods - read food labels chose low sugar options and total carbs - aim at less than 45 g carbs at meals Coding Level of Care Code Nutr Indiv Subseq (00966) Diagnoses Impaired fasting glucose R73.01 Time Spent (min) 30
== END 2023-06-09 11:08 | disposition home or self-care (01) ==
PROVIDERS: PCP Internal Medicine; Visit Provider Dietitian, Registered
DX: R73.01 Impaired fasting glucose (principal)

== ENCOUNTER 2023-06-09 11:11 | Outpatient (REF) | payer OTHER, SELFPAY ==
--- NOTE | ~2023-06-09 | XR_ITS ---
EXAMINATION: XR SHOULDER, LEFT CLINICAL INFORMATION: Pain. COMPARISON: Prior radiographs, most recently 03/06/2023. TECHNIQUE: AP external rotation, Grashey, scapular Y, and axillary views of the left shoulder. FINDINGS: Bony mineralization is normal. There are healed left humeral neck and greater tuberosity fractures, with bony remodeling. The glenohumeral joint is intact. The acromioclavicular and coracoclavicular intervals are normal. No acute fracture or dislocation is seen. No abnormal soft tissue calcification or foreign body is seen. No left pneumothorax is seen. XR/XR shoulder LT min 2V IMPRESSION: There are healed left humeral fractures, with bony remodeling. No acute fracture or dislocation is seen. No abnormal soft tissue calcification is noted.
== END 2023-06-09 11:12 | disposition home or self-care (01) ==
LOC: HO.HOSX 11:11
PROVIDERS: Visit Provider Physician Assistant
DX: R73.01 Impaired fasting glucose (principal); S42.202D Unspecified fracture of upper end of left humerus, subsequent encounter for fracture with routine healing
CPT/HCPCS: 73030; 97803; 99212

== ENCOUNTER 2023-09-08 10:53 | Outpatient (AMB) | payer OTHER, SELFPAY ==
--- NOTE | 2023-09-08 11:08 | A.OFFVIS_ITS ---
Intake VS Expanded 09/08/23 11:09 Height 5 ft 2 in Weight 251 lb 12.286 oz BMI 46.0 Intake Visit Reasons: ifg/CONFIRMED Allergies No Known Allergies [No Known Allergies*] Allergy (Verified 05/13/23 10:27) HPI Nutrition Presentation Details Pt presernts for IFG Pt reports keeping sedentary challenges: reducing pastries/sugary foods including fish 3 times a week Most Recent Diabetes Results: Cholesterol 164 mg/dL (<200) 05/11/23 HDL Cholesterol 43 mg/dL (>40) 05/11/23 Triglycerides 243 mg/dL (<150) H 05/11/23 AST 16 U/L (5-31) 05/11/23 ALT 17 U/L (0-31) 05/11/23 PFS Medical History ASCUS with positive high risk HPV Bipolar disorder Fracture of humerus, proximal, left, closed GERD (gastroesophageal reflux disease) Hx of fall Impaired fasting glucose Intertrigo Menopause Mild intermittent asthma Mixed dyslipidemia Psoriasis Seasonal allergies Tinea corporis Trigeminal neuralgia of left side of face Vitamin D deficiency Surgical History History of endometrial ablation Family History Father History of CVA (cerebrovascular accident) Lung cancer Depression Mother Diabetes mellitus Maternal Grandmother Diabetes mellitus Breast cancer Maternal Aunt Breast cancer Diabetes mellitus Maternal Uncle Colon cancer Brother No problems noted. Brother No problems noted. Sister No problems noted. Sister No problems noted. Son Mental health disorder Son No problems noted. Social History Household Members: None Housing: Apartment Alcohol intake: never Patient Tobacco Use Status: Former Tobacco user Years Smoked: 15 yrs e-Cigarette/Vaping Use: Never Used Second Hand Smoke Exposure: Yes service: No Current occupational status: unemployed Current occupation: right hand dominant Sexual orientation: Straight/Heterosexual Gender identity: Female Cognitive needs: No Hearing needs: No Vision needs: Yes Assessment & Plan Assessment & Plan (1) Impaired fasting glucose: Code(s): R73.01 - Impaired fasting glucose Plan: Review low fat/low cholesterol food concepts and Ca , Vit D sources of foods est kcal needs as per [place] St Jeor: 1625 kcal/day (40% carb, 30% fat/prot) est prot needs as per 0.8-1.0 g adjusted Bw (73 kg) = 58-73 g/day est fluid needs as per 25 ml/kg bw: 1825 ml/d. Rec fiber intake 12-25 g as tolerated NA: < 1500 mg/d Noted A1c at 6.1% on 09/2022 (increased from previous A1c) and Tg at 223 mg/dl (09/2022) increased from 208 mg/dl Educate patient on: (R= Reviewed, V = verbalizes understanding N/R= Needs review N/A= not applicable) * Difference between complex carbohydrates and simple carbohydrates, role of fiber: R * Differences between fats (MUFA/PUFA/saturated fats, trans fats) and food sources of various fats: R * Food sources of sodium and salt and healthy modifications for heart health and kidney health: R * Vitamins and minerals: R * Physical activity: benefits and precaution: R (when cleared by MD) Patient Instructions: Engage in physical activity walking twice a week , goal 60 minutes or as tolerated Work on reducing sugars (pastries, beverages) wt loss goal 4 lb less by next f/u Coding Level of Care Code Nutr Indiv Subseq (22734) Diagnoses Impaired fasting glucose R73.01 Time Spent (min) 30
[2023-09-08 11:09] VITALS: BMI 46.0
== END 2023-09-08 11:45 | disposition home or self-care (01) ==
PROVIDERS: PCP Internal Medicine; Visit Provider Dietitian, Registered
DX: R73.01 Impaired fasting glucose (principal)

== ENCOUNTER → 2023-09-08 10:53 | Outpatient (BNVA) | payer OTHER, SELFPAY | PROVIDERS: PCP Internal Medicine; Visit Provider Dietitian, Registered | DX: R73.01 Impaired fasting glucose (principal) | CPT/HCPCS: 97803 ==

== ENCOUNTER 2023-10-25 08:11 | Outpatient (REF) | payer OTHER, SELFPAY ==
[2023-10-25 13:10] LABS: Estimated Average Glucose 120 mg/dL; Hemoglobin A1c % 5.8 % (<6.0)
[2023-10-25 13:43] LABS: Alanine Aminotransferase 16 U/L (0-31); Anion Gap 12 (12-20); Aspartate Amino Transferase 16 U/L (5-31); Blood Urea Nitrogen 11 mg/dL (9-16); Carbon Dioxide 28 mmol/L (22-29); Chloride 105 mmol/L (96-108); Cholesterol 168 mg/dL (<200); Estimated Glomerular Filt Rate > 60; Glucose Fasting 115 mg/dL (60-99); HDL Cholesterol 44 mg/dL (>40); LDL Cholesterol Calculated 74 mg/dL (<100); Potassium 3.9 mmol/L (3.3-5.1); Sodium 141 mmol/L (135-145); Triglycerides 252 mg/dL (<150); Vitamin D 25-OH Total 28.6 ng/mL (>30)
[2023-10-25 13:54] LABS: Creatinine Urine 142.68 mg/dL; Microalbum/Creatinine Ratio Ur 6.3 ug/mg cr (<30)
== END 2023-10-25 08:12 | disposition home or self-care (01) ==
LOC: HO.HMGCLDS 08:11
PROVIDERS: PCP Internal Medicine; Visit Provider Internal Medicine
DX: E55.9 Vitamin D deficiency, unspecified (principal); R73.01 Impaired fasting glucose; E78.2 Mixed hyperlipidemia; Z78.0 Asymptomatic menopausal state
CPT/HCPCS: 36415; 80048; 80061; 82043; 82306; 82570; 83036; 84450; 84460

== ENCOUNTER 2023-10-31 10:29 | Outpatient (AMB) | payer OTHER, SELFPAY ==
[2023-10-31 10:45] VITALS: BP 138/72; PULSE 82; O2SAT 98; BMI 46.1
--- NOTE | 2023-10-31 10:45 | A.OFFPC_ITS ---
Vital Signs 10/31/23 10:45 Height 5 ft 2 in Weight 252 lb BMI 46.1 BP 138/72 Blood Pressure Location Rt brachial Position Sitting Pulse 82 Pulse Source Pulse Oximeter Pulse Oximetry (%) 98 Oxygen Delivery Method Room Air Intake Visit Reasons: med f/u Intake Note: Pt is here today to f/u medication Allergies No Known Allergies [No Known Allergies*] Allergy (Verified 10/31/23 10:59) Medication List - Last Reconciled 10/31/23 by Raquel Hurley MD acetaminophen mg PO albuterol sulfate 90 mcg/actuation 2 inhalations inhalation Q6H PRN atorvastatin 20 mg PO DAILY bupropion HCl XL 300 mg PO QAM carbamazepine 200 mg PO BID cetirizine 10 mg PO BEDTIME clotrimazole-betamethasone 1-0.05 % 1 appl topical BID 4 weeks diclofenac sodium 1% (Arthritis Pain (diclofenac)) 2 grams topical QID PRN fluticasone propionate 50 mcg/actuation 1 spray intranasal DAILY ibuprofen 600 mg PO Q6H PRN lithium carbonate ER 0 mg PO omega-3 fatty acids-fish oil 300-1,000 mg 1 cap PO BID omeprazole 20 mg PO DAILY Tobacco use date assessed: 10/31/23 Dental Screening Dental Screen Date: 10/31/23 HPI med f/u HPI Details With 8-year-old lady with impaired fasting glucose, and hyperlipidemia, here today for follow-up. She has been taking her medications as directed, but admits to not getting much exercise lately over the past winter months. Has been feeling well with no symptoms at present time. [facility] Medical History (Updated 12/07/23 @ 02:32 by Raquel Hurley MD) Hx of fall Fracture of humerus, proximal, left, closed Intertrigo Tinea corporis Trigeminal neuralgia of left side of face ASCUS with positive high risk HPV Seasonal allergies Bipolar disorder Vitamin D deficiency Menopause Mild intermittent asthma GERD (gastroesophageal reflux disease) Psoriasis Impaired fasting glucose Mixed dyslipidemia Surgical History History of endometrial ablation Family History Father History of CVA (cerebrovascular accident) Lung cancer Depression Mother Diabetes mellitus Maternal Grandmother Diabetes mellitus Breast cancer Maternal Aunt Breast cancer Diabetes mellitus Maternal Uncle Colon cancer Brother No problems noted. Brother No problems noted. Sister No problems noted. Sister No problems noted. Son Mental health disorder Son No problems noted. Social History Household Members: None Housing: Apartment Alcohol intake: never Patient Tobacco Use Status: Former Tobacco user Years Smoked: 15 yrs e-Cigarette/Vaping Use: Never Used Second Hand Smoke Exposure: Yes service: No Current occupational status: unemployed Current occupation: right hand dominant Sexual orientation: Straight/Heterosexual Gender identity: Female Cognitive needs: No Hearing needs: No Vision needs: Yes Questionnaire PHQ-9 Over the last 2 weeks, how often have you been bothered by any of the following problems? 1. Little interest or pleasure in doing things: not at all 2. Feeling down, depressed, or hopeless: not at all 3. Trouble falling or staying asleep, or sleeping too much: not at all 4. Feeling tired or having little energy: not at all 5. Poor appetite or overeating: not at all 6. Feeling bad about yourself - or that you are a failure or have let yourself or your family down: not at all 7. Trouble concentrating on things, such as reading the newspaper or watching television: not at all 8. Moving or speaking so slowly that other people could have noticed. Or the opposite - being so fidgety or restless that you have been moving around a lot more than usual: not at all 9. Thoughts that you would be better off or of hurting yourself in some way: not at all Total score: 0 Depression Screening Interpretation: Negative Depression Screening Done: Yes 40283 - PHQ-9 Billing: Yes Source: Developed by Drs. Brett Espinoza, Allison Rutledge, Yanick Mac and colleagues, with an educational aleksey from [email or web address]. Thrive Questionnaire Date Thrive assessed: 10/31/23 I am a: Patient What is your living situation today?: I have a steady place to live Within the past 12 months, did the food you bought not last and you didn't have the money to get more?: Never true Within the past 12 months, did you worry whether your food would run out before you got money to buy more?: Never true Do you have trouble paying for medicines?: No Do you have trouble getting transportation to medical appointments?: No Do you have trouble paying your heating and electricity bill?: No Do you have trouble taking care of your child, family member or friend?: No Do you have trouble with day-to-day activities such as bathing, preparing meals, shopping, managing finances, etc.?: No Are you currently unemployed and looking for a job?: No Are you interested in more education?: No THRIVE Score: 0 AUDIT C Alcohol Use Questionnaire (AUDIT-C) 1. How often do you have a drink containing alcohol?: Never Total Score: 0 SAM-7 AMB Questionnaire SAM-7 Date SAM - 7 assessed: 10/31/23 Feeling nervous, anxious, or on edge: 0 = Not at all Not being able to stop or control worryin = Not at all Worrying too much about different things: 0 = Not at all Trouble relaxin = Not at all Being so restless that it is hard to sit still: 0 = Not at all Becoming easily annoyed or irritable: 0 = Not at all Feeling afraid as if something awful might happen: 0 = Not at all Total SAM-7 score (0-4 normal; 5-9 mild; 10-14 moderate; 15-21 severe): 0 Source: Developed by Drs. Brett Espinoza, Allison Rutledge, Yanick Mac and colleagues, with an educational aleksey from [email or web address]. SAM-7 Assessment Billing SAM-7 Assessment Tool: SAM-7 Assessment 79775 Review of Systems Const Denies body aches, Denies fever(s), Denies headache(s) and Denies weakness Eyes Details: Goes to [address] [place] [address] for routine eye exam, currently up-to-date ENT Denies dizziness, Denies headache(s), Denies nasal congestion, Denies nasal discharge and Denies sore throat Card Denies chest pain, Denies lightheadedness and Denies dyspnea Resp Denies chest congestion, Denies cough and Denies dyspnea GI Denies abdominal pain, Denies change in bowel habits and Denies heartburn Reports no additional complaints Musc Details: History of fracture of left humerus 09/2022 after a fall while bowling Reports no additional complaints Skin/Breast Denies breast pain and Denies breast mass Neuro Denies dizziness, Denies headache(s) and Denies weakness Psych Reports no additional complaints Endo Reports no additional complaints Wagner/Lymph Denies easy bleeding and Denies easy bruising Aller/Immun Reports no additional complaints Physical exam (Primary Care) Vital Signs: Last Vital Signs Pulse 82 10/31/23 10:45 BP 138/72 10/31/23 10:45 Pulse Ox 98 10/31/23 10:45 Oxygen Delivery Method Room Air 10/31/23 10:45 BMI result Body Mass Index 46.1 BMI Assessment/Plan discussion: High BMI High, discussed plan: lifestyle, dietary and physical activity Tobacco/Smoking Status: Tobacco use Status Tobacco use date assessed 10/31/23 10/31/23 10:53 Patient Tobacco Use Status Former Tobacco user 10/31/23 10:53 e-Cigarette/Vaping Use Never Used 10/31/23 10:53 PHQ-9: PHQ-9 Score PHQ-9: Total score 0 10/31/23 11:10 Depression Screening Interpretation: Negative Thrive Assessment: Date of Thrive Assessment Date Thrive assessed 10/31/23 10/31/23 10:53 Const General: comfortable, no acute distress and alert Nutritional Appearance: obese morbidly obese Orientation/consciousness: patient oriented x3 Neck Neck: Yes full ROM, Yes no lymphadenopathy, Yes no meningeal signs and Yes supple Resp Effort & Inspection: normal respiratory effort and able to speak in complete sentences Auscultation: clear to auscultation bilaterally Cardio Rate: regular rate Rhythm: regular rhythm Heart sounds: S1 normal heart sound present and S2 normal heart sound present GI Palpation (GI): Soft to palpation, nontender and no masses Auscultation: normal bowel sounds Other: Goes to [facility] for her routine Pap and pelvic exam Back/Spine/Pelvis Back: No back tenderness Skin General skin exam: no rashes or lesions noted Neuro General: patient oriented x3, gait normal, tone normal, moves all extremities, Normal light touch and pain sensation, no meningeal signs and no focal motor deficits Extrem General: Yes full ROM, Yes no joint enlargement, Yes no clubbing, cyanosis or edema and Yes normal gait Psych Appearance: grossly normal and well kempt Mental Status: mental status grossly normal Speech and movement: Normal speech and movement present Affect: normal affect Results Reviewed Results Reviewed: Name: Haritha Gallegos Age/Sex: 58/F : 1965 Unit#: [id number] Attend Dr: Raquel Hurley MD Re10/25/23 Status: DEP [facility] Disch: SPEC : [id number] DIONE: 10/25/23 STATUS: COMP REQ : [id number] RECD: 10/25/23-[address]: Raquel Hurley MD COMP: 10/25/23 ENTERED: 10/25/[address]: ORDERED: Met Prof Fast, AST, ALT, Lipid Panel, Vitamin D 25-OH Test Result Flag Reference Sodium 141 135-145 mmol/L Potassium 3.9 3.3-5.1 mmol/L CL 105 96-108 mmol/L CO2 28 22-29 mmol/L Gap 12 12-20 BUN 11 9-16 mg/dL Creat 0.85 0.5-1.4 mg/dL EGFR > 60 NOTE: For -Malagasy individuals, multiply the result by 1.210. Chronic Kidney Disease: Estimated GFR < 60 mL/min/1.73m2 Severe Kidney Disease: Estimated GFR < 15 mL/min/1.73m2 FBS 115 H 60-99 mg/dL A fasting glucose from 100-125 mg/dl is considered impaired (pre-diabetes). CA 9.0 8.4-10.2 mg/dL AST (GOT) 16 5-31 U/L ALT (GPT) 16 0-31 U/L Triglyceride 252 H <150 mg/dL Desirable Triglyceride: less than 150 mg/dL Borderline High Triglyceride 150-199 mg/dL High Triglyceride: 200-499 mg/dL Very High Triglyceride: greater than or equal to 5OO mg/dL Cholesterol 168 <200 mg/dL Desirable Cholesterol: less than 200 mg/dL Borderline High Cholesterol: 200-239 mg/dL High Cholesterol: greater than 239 mg/dL LDL Calculated 74 <100 mg/dL Desirable LDL: less than 100 mg/dL Near Optimal/Above Optimal LDL: 110-129 mg/dL Borderline High LDL: 130-159 mg/dL High LDL: 160-189 mg/dL Very High LDL: greater than or equal to 190 mg/dL HDL 44 >40 mg/dL Desirable HDL: greater than 40 mg/dL Note: This HDL assay may give artificially low results in patients with liver disease. Vit D 25-OH Tot 28.6 L >30 ng/mL Health Based Reference Values* < 20 ng/mL Deficient 20-30 ng/mL Insufficient > 30 ng/mL Sufficient RUN: 10/31/23 1058 PAGE 1 [facility] [address] [place] [id number] Chief Commercial Officer: Qamar Lee M.D. Specimen Inquiry Name: Haritha Gallegos Age/Sex: 58/F : 1965 Unit#: [id number] Attend Dr: Raquel Hurley MD Re10/25/23 Status: DEP REF Location: [facility] Disch: SPEC : [id number] DIONE: 10/25/23 STATUS: COMP REQ : [id number] RECD: 10/25/[address]: Raquel Hurley MD COMP: 10/25/23 ENTERED: 10/25/23 [facility] DR: ORDERED: Hgb A1c Test Result Flag Reference A1c % 5.8 <6.0 % Hemoglobin A1C Reference Range Adults: 4.8 - 6.0 % Non diabetic: < 6.0 % Goal: < 7.0 % Additional Action Suggested: > 8.0 % Assessment and Plan Assessment & Plan (1) Mixed dyslipidemia: Code(s): E78.2 - Mixed hyperlipidemia Plan: Reviewed latest lab results with patient, which still showed elevated triglycerides but normal LDL cholesterol. Continue with [place] 3 fatty acid supplements and atorvastatin 20 mg daily, reinforced importance of following a low-cholesterol diet and getting regular exercise at least 3 to times a week of cardio for about 30 minutes each time. (2) Impaired fasting glucose: Code(s): R73.01 - Impaired fasting glucose Plan: Hemoglobin A1c is at 5.8%, continue adherence to healthy eating habits and regular exercise. (3) Vitamin D deficiency: Code(s): E55.9 - Vitamin D deficiency, unspecified Plan: Prescription [place] 3 [place] [address] units per capsule to take once a week for the next 3 months, then continue taking [id number] vitamin-D 3 at 2 2000 units once daily once prescription is done Orders: Orders Hemoglobin A1c 01/23/24 E55.9 - Vitamin D deficiency, unspecified, R73.01 - Impaired fasting glucose, E78.2 - Mixed hyperlipidemia Alanine Aminotransferase 01/23/24 E55.9 - Vitamin D deficiency, unspecified, R73.01 - Impaired fasting glucose, E78.2 - Mixed hyperlipidemia Aspartate Amino Transferase 01/23/24 E55.9 - Vitamin D deficiency, unspecified, R73.01 - Impaired fasting glucose, E78.2 - Mixed hyperlipidemia Basic Metabolic Panel Fasting 01/23/24 E55.9 - Vitamin D deficiency, unspecified, R73.01 - Impaired fasting glucose, E78.2 - Mixed hyperlipidemia Lipid Panel 01/23/24 E55.9 - Vitamin D deficiency, unspecified, R73.01 - Impaired fasting glucose, E78.2 - Mixed hyperlipidemia Hemoglobin and Hematocrit 01/23/24 E55.9 - Vitamin D deficiency, unspecified, R73.01 - Impaired fasting glucose, E78.2 - Mixed hyperlipidemia Vitamin D 25-OH Total 01/23/24 E55.9 - Vitamin D deficiency, unspecified, R73.01 - Impaired fasting glucose, E78.2 - Mixed hyperlipidemia Medications: New cholecalciferol (vitamin D3) 1,250 mcg PO QWEEK 13 caps 0RF 3 months Coding Level of Care Code Est Pt Level 4 (26636) Diagnoses Mixed dyslipidemia E78.2 Impaired fasting glucose R73.01 Vitamin D deficiency E55.9 Additional Codes SAM-7 Assessment Billing - SAM-7 Assessment Tool: SAM-7 Assessment 08005 ([id number])
== END 2023-10-31 11:15 | disposition home or self-care (01) ==
PROVIDERS: PCP Internal Medicine; Visit Provider Internal Medicine
DX: E78.2 Mixed hyperlipidemia (principal); R73.01 Impaired fasting glucose; E55.9 Vitamin D deficiency, unspecified
CPT/HCPCS: 99214

== ENCOUNTER 2023-12-07 08:50 | Outpatient (AMB) | payer OTHER, SELFPAY ==
[2023-12-07 09:13] VITALS: BMI 45.3
--- NOTE | 2023-12-07 09:13 | A.OFFVIS_ITS ---
VS Expanded 12/07/23 09:13 Height 5 ft 2 in Weight 247 lb 12.793 oz BMI 45.3 Intake Visit Reasons: IFG/CONFIRMED Allergies No Known Allergies [No Known Allergies*] Allergy (Verified 10/31/23 10:59) Nutrition Presentation Details: Pt presents for MNT for IFG Pt reports working on reducing pastries and mindful of food choices. Contemplating increasing physical activity with better weather. BS Monitoring Most Recent Diabetes Results: Microalb/Creat Ratio 6.3 ug/mg cr (<30) 10/25/23 Cholesterol 168 mg/dL (<200) 10/25/23 HDL Cholesterol 44 mg/dL (>40) 10/25/23 Triglycerides 252 mg/dL (<150) H 10/25/23 Creatinine 0.85 mg/dL (0.5-1.4) 10/25/23 Blood Urea Nitrogen 11 mg/dL (9-16) 10/25/23 Sodium 141 mmol/L (135-145) 10/25/23 Potassium 3.9 mmol/L (3.3-5.1) 10/25/23 Chloride 105 mmol/L (96-108) 10/25/23 Carbon Dioxide 28 mmol/L (22-29) 10/25/23 Calcium 9.0 mg/dL (8.4-10.2) 10/25/23 AST 16 U/L (5-31) 10/25/23 ALT 16 U/L (0-31) 10/25/23 [facility] Medical History (Updated 12/07/23 @ 02:32 by Raquel Hurley MD) Hx of fall Fracture of humerus, proximal, left, closed Intertrigo Tinea corporis Trigeminal neuralgia of left side of face ASCUS with positive high risk HPV Seasonal allergies Bipolar disorder Vitamin D deficiency Menopause Mild intermittent asthma GERD (gastroesophageal reflux disease) Psoriasis Impaired fasting glucose Mixed dyslipidemia Surgical History History of endometrial ablation Family History Father History of CVA (cerebrovascular accident) Lung cancer Depression Mother Diabetes mellitus Maternal Grandmother Diabetes mellitus Breast cancer Maternal Aunt Breast cancer Diabetes mellitus Maternal Uncle Colon cancer Brother No problems noted. Brother No problems noted. Sister No problems noted. Sister No problems noted. Son Mental health disorder Son No problems noted. Social History Household Members: None Housing: Apartment Alcohol intake: never Patient Tobacco Use Status: Former Tobacco user Years Smoked: 15 yrs e-Cigarette/Vaping Use: Never Used Second Hand Smoke Exposure: Yes service: No Current occupational status: unemployed Current occupation: right hand dominant Sexual orientation: Straight/Heterosexual Gender identity: Female Cognitive needs: No Hearing needs: No Vision needs: Yes Assessment & Plan Assessment & Plan (1) Impaired fasting glucose: Code(s): R73.01 - Impaired fasting glucose Category: Medical Plan: Review low fat/low cholesterol food concepts and Ca , Vit D sources of foods est kcal needs as per [place] St Jeor: 1625 kcal/day (40% carb, 30% fat/prot) est prot needs as per 0.8-1.0 g adjusted Bw (73 kg) = 58-73 g/day est fluid needs as per 25 ml/kg bw: 1825 ml/d. Rec fiber intake 12-25 g as tolerated NA: < 1500 mg/d Educate patient on: (R= Reviewed, V = verbalizes understanding N/R= Needs review N/A= not applicable) * Difference between complex carbohydrates and simple carbohydrates, role of fiber: R * Differences between fats (MUFA/PUFA/saturated fats, trans fats) and food sources of various fats: R * Food sources of sodium and salt and healthy modifications for heart health and kidney health: R * Vitamins and minerals: R * Physical activity: benefits and precaution: R (when cleared by ) Patient Instructions: Reduce on pastries/fats Walk 3 times a week as tolerated and keep hydrated by having water , carry water bottle with you Choose fiber rich foods (read food labels choosing foods with 3 g of fiber or higher per serving size Coding Level of Care Code Nutr Indiv Subseq (21848) Diagnoses Impaired fasting glucose R73.01 Time Spent (min) 20
== END 2023-12-07 09:45 | disposition home or self-care (01) ==
PROVIDERS: PCP Internal Medicine; Visit Provider Dietitian, Registered
DX: R73.01 Impaired fasting glucose (principal)

== ENCOUNTER → 2023-12-07 08:50 | Outpatient (BNVA) | payer OTHER, SELFPAY | PROVIDERS: PCP Internal Medicine; Visit Provider Dietitian, Registered | DX: R73.01 Impaired fasting glucose (principal) | CPT/HCPCS: 97803 ==

== ENCOUNTER 2024-02-07 12:16 | Outpatient (AMB) | payer OTHER, SELFPAY ==
--- NOTE | 2024-02-07 12:19 | MHC.OFFWIV ---
Intake Vital Signs 02/07/24 12:21 Height 5 ft 2 in Weight 243 lb BMI 44.4 BP 126/78 Blood Pressure Location Rt brachial Position Sitting Pulse 72 Pulse Source Pulse Oximeter Temp 98.0 F Temp Source Temporal Artery Scan Pulse Oximetry (%) 97 Intake Visit Reasons: EP RT arm pain Intake Note: pt is here ofr right arm pain due to trying to open jar by hitting it Patient Tobacco Use Status: Former Tobacco user Allergies No Known Allergies [No Known Allergies*] Allergy (Verified 02/07/24 12:21) Do you need a note to return to daycare/school/sports/work: No HPI HPI Comments History of Present Illness Details This is a 58-year-old female with a past medical history of bipolar disorder, hyperlipidemia, asthma and seasonal allergies presenting for evaluation of right wrist and upper arm pain. Patient states last she was trying to open a jar of salsa and she struck the bottom of the glass jar forcefully approximately 4 times. The patient states thereafter she had pain in her right dorsal wrist and upper right arm. Patient has been taking Tylenol without relief her discomfort. Today the patient states that she continues to have pain in her right wrist with movement and upper arm only to touch. Of note, patient is right-hand dominant. [facility] Medical History Hx of fall Fracture of humerus, proximal, left, closed Intertrigo Tinea corporis Trigeminal neuralgia of left side of face ASCUS with positive high risk HPV Seasonal allergies Bipolar disorder Vitamin D deficiency Menopause Mild intermittent asthma GERD (gastroesophageal reflux disease) Psoriasis Impaired fasting glucose Mixed dyslipidemia Surgical History History of endometrial ablation Family History Father History of CVA (cerebrovascular accident) Lung cancer Depression Mother Diabetes mellitus Maternal Grandmother Diabetes mellitus Breast cancer Maternal Aunt Breast cancer Diabetes mellitus Maternal Uncle Colon cancer Brother No problems noted. Brother No problems noted. Sister No problems noted. Sister No problems noted. Son Mental health disorder Son No problems noted. Social History Household Members: None Housing: Apartment Alcohol intake: never Patient Tobacco Use Status: Former Tobacco user Years Smoked: 15 yrs e-Cigarette/Vaping Use: Never Used Second Hand Smoke Exposure: Yes service: No Current occupational status: unemployed Current occupation: right hand dominant Sexual orientation: Straight/Heterosexual Gender identity: Female Cognitive needs: No Hearing needs: No Vision needs: Yes Review of Systems Const All systems reviewed & are unremarkable except as noted in HPI and below Eyes Reports no additional complaints ENT Reports no additional complaints Card Reports no additional complaints Resp Reports no additional complaints Musc Details: R. wrist, R. upper arm pain Reports limited range of motion (right wrist), Denies muscle cramps and Denies muscle weakness Skin/Breast Reports system reviewed and no additional complaints, except as documented Neuro Reports no additional complaints Psych Reports no additional complaints Endo Reports no additional complaints Aller/Immun Reports no additional complaints Physical Exam Vital Signs: Last Vital Signs Temp 98.0 F 02/07/24 12:21 Pulse 72 02/07/24 12:21 BP 126/78 02/07/24 12:21 Pulse Ox 97 02/07/24 12:21 BMI result Body Mass Index 44.4 Const General: cooperative, healthy appearing, comfortable, no acute distress, well developed, alert, awake and Physically active; No acute distress Nutritional Appearance: obese Orientation/consciousness: patient oriented x3 Limitations: no limitations Skin General skin exam: no rashes or lesions noted Lesions: no lesions Rashes: no rashes Trauma: no lacerations or abrasions Wounds: no wounds Neuro General: patient oriented x3 Extrem Right upper extremity: shoulder/upper arm (pain to palpation radial aspect of the R. distal humerus; no epicondylitis), elbow/forearm (passive ROM right olecranon intact, no pain to palaption of the R. forearm) and wrist (limited ROM with extension R. wrist and radial deviation R. hand) Details: tenderness; no swelling and ROM abnormal (right wrist); ROM limited (ROM limited right wrist with extension and radial deviation of R. hand) and no edema Psych Appearance: grossly normal Mental Status: mental status grossly normal Insight: Good insight present (Psych) Judgement: Good judgement present (Psych) Assessment & Plan Assessment & Plan (1) Right wrist tendonitis: Comment: No clinical concern for fracture and imaging will be deferred today. Code(s): M77.8 - Other enthesopathies, not elsewhere classified Plan: Wrist splint to be worn daily for the next 7-10 days; Naprosyn b.i.d. times 7-10 days. (2) Pain of right humerus: Code(s): M89.8X2 - Other specified disorders of bone, upper arm Plan: Naprosyn b.i.d. times 7-10 days. Medications: New naproxen (Naprosyn) 500 mg PO BID 20 tabs 0RF Coding Level of Care Code Est Pt Level 3 (08023) Diagnoses Right wrist tendonitis M77.8 Pain of right humerus M89.8X2 Time Spent (min) 20
[2024-02-07 12:21] VITALS: BP 126/78; PULSE 72; TEMP 36.7; O2SAT 97; BMI 44.4
== END 2024-02-07 12:47 | disposition home or self-care (01) ==
PROVIDERS: PCP Internal Medicine; Visit Provider Physician Assistant
DX: M77.8 Other enthesopathies, not elsewhere classified (principal); M89.8X2 Other specified disorders of bone, upper arm
CPT/HCPCS: 99213

== ENCOUNTER 2024-02-08 07:45 | Outpatient (AMB) | payer OTHER, SELFPAY ==
--- NOTE | 2024-02-08 07:48 | A.OFFVIS_ITS ---
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 She is doing well with no concerns. Attempting to eat a healthy diet with calcium and vitamin D and stays active with exercise-currently has pinched nerve in her neck affecting her right shoulder, has been seen by her primary care. Last pap smear; 2022, Hx. KAILEE 2019. Pap neg. 2021 and 2022. Last mammogram; 2022. Colonoscopy is UTD. Denies any family history of ovarian or colon cancer. [facility] Medical History Hx of fall Fracture of humerus, proximal, left, closed Intertrigo Tinea corporis Trigeminal neuralgia of left side of face ASCUS with positive high risk HPV Seasonal allergies Bipolar disorder Vitamin D deficiency Menopause Mild intermittent asthma GERD (gastroesophageal reflux disease) Psoriasis Impaired fasting glucose Mixed dyslipidemia Surgical History History of endometrial ablation Family History Father History of CVA (cerebrovascular accident) Lung cancer Depression Mother Diabetes mellitus Maternal Grandmother Diabetes mellitus Breast cancer Maternal Aunt Breast cancer Diabetes mellitus Maternal Uncle Colon cancer Brother No problems noted. Brother No problems noted. Sister No problems noted. Sister No problems noted. Son Mental health disorder Son No problems noted. Social History Household Members: None Housing: Apartment Alcohol intake: never Patient Tobacco Use Status: Former Tobacco user Years Smoked: 15 yrs e-Cigarette/Vaping Use: Never Used Second Hand Smoke Exposure: Yes service: No Current occupational status: unemployed Current occupation: right hand dominant Sexual orientation: Straight/Heterosexual Gender identity: Female Cognitive needs: No Hearing needs: No Vision needs: Yes Female Reproductive History Menstrual Menopause type: surgical Total pregnancies: 2 Full term: 2 Number of Living Children: 2 Date of last pap smear: 02/04/23 (neg pap and hpv) History of abnormal pap smear: Yes (11/03 ascus 04/12 ascus +hpv 08/13 colpo kailee 1 02/12 neg,neg) Date of Mammogram: 03/04/23 (Birad 2) Review of Systems Const All systems reviewed & are unremarkable except as noted in HPI and below Reports as per HPI Eyes Reports no additional complaints ENT Reports no additional complaints Card Reports no additional complaints Resp Reports no additional complaints GI Reports as per HPI and Reports no additional complaints Reports as per HPI Musc Reports no additional complaints Skin/Breast Reports as per HPI Neuro Reports no additional complaints Psych Reports no additional complaints Endo Reports no additional complaints Wagner/Lymph Reports no additional complaints Aller/Immun Reports no additional complaints Physical Exam Const General: cooperative, healthy appearing, no acute distress, well developed and alert Orientation/consciousness: patient oriented x3 HEENT Head: Yes normal to inspection Eyes General: appearance normal, both eyes and all related structures Neck Neck: Yes normal visual inspection Thyroid: Thyroid normal Chest Chest palpation & inspection: normal inspection of the chest and other (no puckering, dimpling, peau de orange, retraction, discharge, masses) Breast/axilla inspection: normal inspection of the breasts Breast/axilla palpation: normal palpation of the breasts Resp Effort & Inspection: normal respiratory effort GI Inspection: Yes normal to inspection and Yes obesity Palpation (GI): Soft to palpation Rectal Exam - Female: deferred General: Yes bladder normal to palpation External Female Exam: normal external appearance and normal appearance of the urethra Speculum Exam - Vagina: normal appearance of the vagina, normal palpation, normal vaginal discharge and vagina atrophic Speculum Exam - Cervix: normal appearance of the cervix and normal palpation Bimanual exam- vagina & uterus: normal bimanual exam, normal palpation, uterine size normal, bladder normal to palpation, normal palpation and non-tender Bimanual Exam- Adnexa, other: no masses Skin General skin exam: no rashes or lesions noted Rashes: no rashes Neuro General: patient oriented x3 Cognition (Neuro): normal cognition Extrem General: Yes normal to inspection Psych Attitude: cooperative Thought process: Normal thought process present Assessment & Plan Assessment & Plan (1) Encounter for well woman exam with routine gynecological exam: Code(s): Z01.419 - Encounter for gynecological examination (general) (routine) without abnormal findings Category: Medical Plan Discussed: Current recommendations for pap smears per ASCCP guidelines. Breast awareness, periodic self breast exams and yearly mammogram. Maintain a healthy lifestyle, well balanced diet including Calcium 1,200 mg and Vitamin D 600 IU daily, and routine exercise. Contact the office with any postmenopausal bleeding. Patient verbalizes understanding and agrees to the plan of care. She was given opportunity to ask questions and all questions were answered to the best of my ability. 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 This note is constructed using voice recognition software. While every effort has been made to ensure accuracy, clock assembler errors may have been included. Coding Level of Care Code Est Pt Prev Care 40-64y(12103) Diagnoses Encounter for well woman exam with routine gynecological exam Z01.419
[2024-02-08 07:50] VITALS: BP 102/68; BMI 44.6
== END 2024-02-08 08:13 | disposition home or self-care (01) ==
LOC: HO.HWS 07:45
PROVIDERS: PCP Internal Medicine; Visit Provider Advanced Practice Midwife
DX: Z01.419 Encounter for gynecological examination (general) (routine) without abnormal findings (principal)
CPT/HCPCS: 99396

== ENCOUNTER → 2024-02-08 07:45 | Outpatient (BNVA) | payer OTHER, SELFPAY | PROVIDERS: PCP Internal Medicine; Visit Provider Advanced Practice Midwife | DX: Z01.419 Encounter for gynecological examination (general) (routine) without abnormal findings (principal) | CPT/HCPCS: 99396 ==

== ENCOUNTER 2024-02-15 09:17 | Outpatient (REF) | payer OTHER, SELFPAY ==
[2024-02-15 11:21] LABS: Hematocrit 40.7 % (37.0-47.0); Hemoglobin 13.5 g/dl (12.0-16.0)
[2024-02-15 11:54] LABS: Estimated Average Glucose 117 mg/dL; Hemoglobin A1c % 5.7 % (<6.0)
[2024-02-15 11:58] LABS: Alanine Aminotransferase 15 U/L (0-31); Anion Gap 15 (12-20); Aspartate Amino Transferase 13 U/L (5-31); Blood Urea Nitrogen 15 mg/dL (9-16); Calcium 9.4 mg/dL (8.4-10.2); Carbon Dioxide 24 mmol/L (22-29); Chloride 105 mmol/L (96-108); Cholesterol 184 mg/dL (<200); Estimated Glomerular Filt Rate 59; Glucose Fasting 104 mg/dL (60-99); HDL Cholesterol 39 mg/dL (>40); LDL Cholesterol Calculated 69 mg/dL (<100); Potassium 4.2 mmol/L (3.3-5.1); Sodium 140 mmol/L (135-145); Triglycerides 381 mg/dL (<150)
[2024-02-15 12:16] LABS: Vitamin D 25-OH Total 60.3 ng/mL (>30)
== END 2024-02-15 09:18 | disposition home or self-care (01) ==
LOC: HO.HMGCLDS 09:17
PROVIDERS: PCP Internal Medicine; Visit Provider Internal Medicine
DX: E55.9 Vitamin D deficiency, unspecified (principal); R73.01 Impaired fasting glucose; E78.2 Mixed hyperlipidemia
CPT/HCPCS: 36415; 80048; 80061; 82306; 83036; 84450; 84460; 85014; 85018

== ENCOUNTER 2024-02-21 10:35 | Outpatient (AMB) | payer OTHER, SELFPAY ==
[2024-02-21 11:08] VITALS: BP 120/88; PULSE 103; O2SAT 97; BMI 43.9
--- NOTE | 2024-02-21 11:08 | A.OFFPC_ITS ---
Vital Signs 02/21/24 11:08 Height 5 ft 2 in Weight 240 lb BMI 43.9 BP 120/88 Blood Pressure Location Lt brachial Position Sitting Pulse 103 H Pulse Source Pulse Oximeter Pulse Oximetry (%) 97 Oxygen Delivery Method Room Air Intake Visit Reasons: 3mo. f/u labs Intake Note: Pt is here today for her 3mo. f/u labs Allergies No Known Allergies [No Known Allergies*] Allergy (Verified 02/21/24 11:23) Medication List - Last Reconciled 02/21/24 by Raquel Hurley MD acetaminophen mg PO albuterol sulfate 90 mcg/actuation 2 inhalations inhalation Q6H PRN atorvastatin 20 mg PO DAILY bupropion HCl XL 300 mg PO QAM carbamazepine 200 mg PO BID cetirizine 10 mg PO BEDTIME cholecalciferol (vitamin D3) 1,250 mcg PO QWEEK 3 months diclofenac sodium 1% (Arthritis Pain (diclofenac)) 2 grams topical QID PRN fluticasone propionate 50 mcg/actuation 1 spray intranasal DAILY ibuprofen 600 mg PO Q6H PRN lithium carbonate ER 0 mg PO naproxen (Naprosyn) 500 mg PO BID omega-3 fatty acids-fish oil 300-1,000 mg 1 cap PO BID omeprazole 20 mg PO DAILY Tobacco use date assessed: 02/21/24 Dental Screening Dental Screen Date: 02/21/24 Did you have a dental visit in the last 12 months?: No Did you have a dental problem in the last 6 months where you did not have access to dental care?: No Was dental information given to patient?: Patient declined HPI 3mo. f/u labs HPI Details 8-year-old lady with hyperlipidemia, mil d intermittent asthma, chronic GERD, psoriasis, impaired fasting glucose, trigeminal neuralgia, history of left humeral fracture 09/2022 and bipolar disorder, here today for follow-up. She has been compliant with taking her medications and tries to follow recommended diet but states that she has been eating a lot of ice cream lately. [facility] Medical History (Updated 02/22/24 @ 01:32 by Raquel Hurley MD) Hx of fall Fracture of humerus, proximal, left, closed Intertrigo Tinea corporis Trigeminal neuralgia of left side of face ASCUS with positive high risk HPV Seasonal allergies Bipolar disorder Vitamin D deficiency Menopause Mild intermittent asthma GERD (gastroesophageal reflux disease) Psoriasis Impaired fasting glucose Mixed dyslipidemia Surgical History History of endometrial ablation Family History Father History of CVA (cerebrovascular accident) Lung cancer Depression Mother Diabetes mellitus Maternal Grandmother Diabetes mellitus Breast cancer Maternal Aunt Breast cancer Diabetes mellitus Maternal Uncle Colon cancer Brother No problems noted. Brother No problems noted. Sister No problems noted. Sister No problems noted. Son Mental health disorder Son No problems noted. Social History Household Members: None Housing: Apartment Alcohol intake: never Patient Tobacco Use Status: Former Tobacco user Years Smoked: 15 yrs e-Cigarette/Vaping Use: Never Used Second Hand Smoke Exposure: Yes service: No Current occupational status: unemployed Current occupation: right hand dominant Sexual orientation: Straight/Heterosexual Gender identity: Female Cognitive needs: No Hearing needs: No Vision needs: Yes Questionnaire PHQ-9 Over the last 2 weeks, how often have you been bothered by any of the following problems? 1. Little interest or pleasure in doing things: several days 2. Feeling down, depressed, or hopeless: several days 3. Trouble falling or staying asleep, or sleeping too much: several days 4. Feeling tired or having little energy: several days 5. Poor appetite or overeating: not at all 6. Feeling bad about yourself - or that you are a failure or have let yourself or your family down: not at all 7. Trouble concentrating on things, such as reading the newspaper or watching television: several days 8. Moving or speaking so slowly that other people could have noticed. Or the opposite - being so fidgety or restless that you have been moving around a lot more than usual: several days 9. Thoughts that you would be better off or of hurting yourself in some way: not at all Total score: 6 Depression Screening Interpretation: Negative Depression Screening Done: Yes Source: Developed by Drs. Brett Espinoza, Allison Rutledge, Yanick Mac and colleagues, with an educational aleksey from [employer]. Thrive Questionnaire Date Thrive assessed: 02/21/24 I am a: Patient What is your living situation today?: I have a place to live, but I am worried about losing it in the future Within the past 12 months, did the food you bought not last and you didn't have the money to get more?: Never true Within the past 12 months, did you worry whether your food would run out before you got money to buy more?: Never true Do you have trouble paying for medicines?: No Do you have trouble getting transportation to medical appointments?: No Do you have trouble paying your heating and electricity bill?: No Do you have trouble taking care of your child, family member or friend?: No Do you have trouble with day-to-day activities such as bathing, preparing meals, shopping, managing finances, etc.?: No Are you currently unemployed and looking for a job?: No Are you interested in more education?: No Please select the resources that you would like help with: Housing/Intermediate Currently or been in a relationship where the following occur: No concerns reported THRIVE Score: 1 AUDIT C Alcohol Use Questionnaire (AUDIT-C) 1. How often do you have a drink containing alcohol?: Monthly or less 2. How many drinks containing alcohol do you have on a typical day when you are drinking?: 1 or 2 3. How often do you have six or more drinks on one occasion?: Never Total Score: 1 SAM-7 AMB Questionnaire SAM-7 Date SAM - 7 assessed: 02/21/24 Feeling nervous, anxious, or on edge: 0 = Not at all Not being able to stop or control worryin = Not at all Worrying too much about different things: 0 = Not at all Trouble relaxin = Not at all Being so restless that it is hard to sit still: 0 = Not at all Becoming easily annoyed or irritable: 0 = Not at all Feeling afraid as if something awful might happen: 0 = Not at all Total SAM-7 score (0-4 normal; 5-9 mild; 10-14 moderate; 15-21 severe): 0 Source: Developed by Drs. Brett Espinoza, Allison Rutledge, Yanick Mac and colleagues, with an educational aleksey from [employer]. Review of Systems Const Denies body aches, Denies fever(s), Denies headache(s) and Denies weakness Eyes Details: Has an appointment with [facility] in 06/2024 ENT Denies dizziness, Denies headache(s) and Denies nasal congestion Card Denies chest pain, Denies lightheadedness and Denies dyspnea Resp Denies chest congestion, Denies cough and Denies dyspnea GI Denies abdominal pain, Denies change in bowel habits and Denies heartburn Reports no additional complaints Musc Reports no additional complaints Skin/Breast Denies breast pain and Denies breast mass Neuro Denies dizziness, Denies headache(s) and Denies weakness Psych Reports no additional complaints Endo Reports no additional complaints Wagner/Lymph Denies easy bleeding and Denies easy bruising Aller/Immun Reports no additional complaints Physical exam (Primary Care) Vital Signs: Last Vital Signs Pulse 103 H 02/21/24 11:08 BP 120/88 02/21/24 11:08 Pulse Ox 97 02/21/24 11:08 Oxygen Delivery Method Room Air 02/21/24 11:08 BMI result Body Mass Index 43.9 BMI Assessment/Plan discussion: High BMI High, discussed plan: lifestyle, dietary and physical activity Tobacco/Smoking Status: Tobacco use Status Tobacco use date assessed 02/21/24 02/21/24 11:13 Patient Tobacco Use Status Former Tobacco user 02/21/24 11:13 e-Cigarette/Vaping Use Never Used 02/21/24 11:13 PHQ-9: PHQ-9 Score PHQ-9: Total score 6 02/21/24 11:22 Depression Screening Interpretation: Negative Thrive Assessment: Date of Thrive Assessment Date Thrive assessed 02/21/24 02/21/24 11:13 Currently or been in a relationship where the following occur: No concerns reported Const General: comfortable, no acute distress and alert Nutritional Appearance: obese morbidly obese Orientation/consciousness: patient oriented x3 Neck Neck: Yes full ROM, Yes no lymphadenopathy, Yes no meningeal signs and Yes supple Resp Effort & Inspection: normal respiratory effort and able to speak in complete sentences Auscultation: clear to auscultation bilaterally Cardio Rate: regular rate Rhythm: regular rhythm Heart sounds: S1 normal heart sound present and S2 normal heart sound present GI Palpation (GI): Soft to palpation, nontender and no masses Auscultation: normal bowel sounds Other: Goes to [facility] for her routine Pap and pelvic exam Back/Spine/Pelvis Back: No back tenderness Skin General skin exam: no rashes or lesions noted Neuro General: patient oriented x3, gait normal, tone normal, moves all extremities, Normal light touch and pain sensation, no meningeal signs and no focal motor deficits Extrem General: Yes full ROM, Yes no joint enlargement, Yes no clubbing, cyanosis or edema and Yes normal gait Psych Appearance: grossly normal and well kempt Mental Status: mental status grossly normal Speech and movement: Normal speech and movement present Affect: normal affect Results Reviewed Results Reviewed: Laboratory Tests 10/25/23 02/15/24 08:15 09:20 Estimat Average Glucose 120 117 Hemoglobin A1c % 5.8 5.7 Name: Haritha Gallegos Age/Sex: 58/F : 1965 Unit#: [id number] Attend Dr: Raquel Hurley MD Re02/15/24 Status: DEP REF Location: [facility] Disch: SPEC : [id number] DIONE: 02/15/24 STATUS: COMP REQ : [id number] RECD: 02/15/[address]: Raquel Hurley MD COMP: 02/15/24 ENTERED: 02/15/[address]: ORDERED: Met Prof Fast, AST, ALT, Lipid Panel, Vitamin D 25-OH Test Result Flag Reference Sodium 140 135-145 mmol/L Potassium 4.2 3.3-5.1 mmol/L CL 105 96-108 mmol/L CO2 24 22-29 mmol/L Gap 15 12-20 BUN 15 9-16 mg/dL Creat 0.97 0.5-1.4 mg/dL EGFR 59 NOTE: For -Tong[place] individuals, multiply the result by 1.210. Chronic Kidney Disease: Estimated GFR < 60 mL/min/1.73m2 Severe Kidney Disease: Estimated GFR < 15 mL/min/1.73m2 FBS 104 H 60-99 mg/dL A fasting glucose from 100-125 mg/dl is considered impaired (pre-diabetes). CA 9.4 8.4-10.2 mg/dL AST (GOT) 13 5-31 U/L ALT (GPT) 15 0-31 U/L Triglyceride 381 H <150 mg/dL Desirable Triglyceride: less than 150 mg/dL Borderline High Triglyceride 150-199 mg/dL High Triglyceride: 200-499 mg/dL Very High Triglyceride: greater than or equal to 5OO mg/dL Cholesterol 184 <200 mg/dL Desirable Cholesterol: less than 200 mg/dL Borderline High Cholesterol: 200-239 mg/dL High Cholesterol: greater than 239 mg/dL LDL Calculated 69 <100 mg/dL Desirable LDL: less than 100 mg/dL Near Optimal/Above Optimal LDL: 110-129 mg/dL Borderline High LDL: 130-159 mg/dL High LDL: 160-189 mg/dL Very High LDL: greater than or equal to 190 mg/dL HDL 39 L >40 mg/dL Desirable HDL: greater than 40 mg/dL Note: This HDL assay may give artificially low results in patients with liver disease. Vit D 25-OH Tot 60.3 >30 ng/mL Health Based Reference Values* < 20 ng/mL Deficient 20-30 ng/mL Insufficient > 30 ng/mL Sufficient Laboratory Tests 10/25/23 02/15/24 08:20 09:20 Hgb 13.5 Hct 40.7 Urine Creatinine 142.68 Urine Microalbumin 9.0 Microalb/Creat Ratio 6.3 Assessment and Plan Assessment & Plan (1) Mixed dyslipidemia: Code(s): E78.2 - Mixed hyperlipidemia Plan: Reinforced importance of following a low-cholesterol diet and getting regular exercise. Will continue on atorvastatin 20 mg daily and [place] 3 fatty acid supplements, will repeat another fasting lipid panel in 06/13/2024 (2) Impaired fasting glucose: Code(s): R73.01 - Impaired fasting glucose Plan: Your previous fasting blood sugars were elevated above 100 mg/dL. Impaired glucose metabolism increases the risk for developing diabetes mellitus type 2, as well as heart attack and stroke later on. Lifestyle changes that promotes weight loss, healthy eating habits, and regular exercise are important, and can prevent the progression to diabetes (3) Mild intermittent asthma: Code(s): J45.20 - Mild intermittent asthma, uncomplicated Qualifiers: Asthma complication type: uncomplicated Qualified Code(s): J45.20 - Mild intermittent asthma, uncomplicated Plan: She has albuterol inhaler at home to use as needed for episodes of bronchospasm and wheezing Orders: Orders Hemoglobin A1c 11/01/24 E78.2 - Mixed hyperlipidemia, R73.01 - Impaired fasting glucose Lipid Panel 05/25/24 E78.2 - Mixed hyperlipidemia, J45.20 - Mild intermittent asthma, uncomplicated, R73.01 - Impaired fasting glucose TSH reflex Free T4 05/25/24 E78.2 - Mixed hyperlipidemia, J45.20 - Mild intermittent asthma, uncomplicated, R73.01 - Impaired fasting glucose Alanine Aminotransferase 05/25/24 E78.2 - Mixed hyperlipidemia, J45.20 - Mild intermittent asthma, uncomplicated, R73.01 - Impaired fasting glucose Aspartate Amino Transferase 05/25/24 E78.2 - Mixed hyperlipidemia, J45.20 - Mild intermittent asthma, uncomplicated, R73.01 - Impaired fasting glucose Basic Metabolic Panel Fasting 05/25/24 E78.2 - Mixed hyperlipidemia, J45.20 - Mild intermittent asthma, uncomplicated, R73.01 - Impaired fasting glucose Coding Level of Care Code Est Pt Level 4 (66510) Complex EM visit Add On G2211 Diagnoses Mixed dyslipidemia E78.2 Impaired fasting glucose R73.01 Mild intermittent asthma without complication J45.20 Asthma complication type: uncomplicated
== END 2024-02-21 11:34 | disposition home or self-care (01) ==
PROVIDERS: PCP Internal Medicine; Visit Provider Internal Medicine
DX: E78.2 Mixed hyperlipidemia (principal); R73.01 Impaired fasting glucose; J45.20 Mild intermittent asthma, uncomplicated
CPT/HCPCS: 99214; G2211

== ENCOUNTER 2024-03-06 07:44 | Outpatient (REF) | payer OTHER, SELFPAY ==
--- NOTE | ~2024-03-06 | MM_ITS ---
EXAMINATION: MM SCREENING DIGITAL BREAST TOMOSYNTHESIS, BILATERAL CLINICAL INFORMATION: Screening. Asymptomatic. COMPARISON: Mammography: This study is compared with prior exams dating back to 2019. TECHNIQUE: Digital breast tomosynthesis is performed in both the craniocaudal and mediolateral oblique views along with computer-aided detection (CAD). Synthesized 2D images are generated from the tomosynthesis. FINDINGS: The breasts are almost entirely fatty (ACR BI-RADS breast composition Category a). There are no significant masses, abnormal calcifications, or other abnormalities. There is a biopsy tissue marker in the left breast. MM/MM tomosynthesis screening BI IMPRESSION: No mammographic evidence of malignancy. ASSESSMENT: BI-RADS BI-RADS 2 - Benign Findings RECOMMENDATION: Routine annual mammography screening. 1 year F/U This examination should not preclude the clinical evaluation of a suspicious palpable abnormality. This patient's information was entered into a reminder system with a target due date for their next mammogram. Electronically signed by: Diane Ramsey MD 03/29/2024 08:45 PM EDT
--- NOTE | ~2024-03-06 | MM_ITS ---
EXAMINATION: BONE DENSITOMETRY CLINICAL INDICATION: Unspecified fracture of upper end of left humerus. COMPARISON: This is the patient's baseline examination. TECHNIQUE: Using a [employer] DXA System (software version: 13.1) manufactured by [employer], dual-energy x-ray absorptiometry was performed of the lumbar spine and left hip. The images are of good technical quality. Summary results are attached. FINDINGS: AP SPINE L1-L4: BMD 1.264 g/cm2, Z-score 0.7, T-score 0.7, normal. LEFT FEMUR, NECK: BMD 0.977 g/cm2, Z-score 0.0, T-score -0.4, normal. LEFT FEMUR, TOTAL: BMD 0.961 g/cm2, Z-score -0.3, T-score -0.4, normal. IDENTIFIED RISK FACTORS: Early menopause, history of fracture (adult), secondary osteoporosis. HISTORY OF FRACTURE: Humerus. MEDICATIONS: Vitamin D. MM/XR DEXA axial skeleton IMPRESSION: 1. DIAGNOSIS: Normal bone density based on the lowest T-score value of -0.4 in the femur neck and total femur applying World Health Organization criteria. 2. 10-YEAR FRACTURE RISK PREDICTION, FRAX: According to the guidelines, FRAX calculation should only be performed on patients in the osteopenia bone density category. Therefore, FRAX was not performed on this patient. 3. Treatment Recommendations: NOF guidelines recommend consideration for treatment in postmenopausal women and men age 50 and older presenting with the following: -A hip or vertebral (clinical or morphometric) fracture. -T-score less than or equal to -2.5 at the femoral neck or spine after appropriate evaluation to exclude secondary causes. -Low bone mass at the hip or spine and a 10-year fracture probability by FRAX of greater than or equal to 3% for hip fracture or greater than or equal to 20% for major osteoporotic fracture based on the [place] adapted WHO algorithm. 4. Other Recommendations: All treatment decisions require clinical judgment and consideration of individual patient factors, including patient preferences, comorbidities, previous drug use, risk factors not captured in the FRAX model (e.g. frailty, falls, vitamin D deficiency, increased bone turnover, interval significant decline in bone density) and possible under or overestimation of fracture risk by FRAX. FUTURE SCAN RECOMMENDATION: People with diagnosed cases of osteoporosis or at high risk for fracture should have regular bone mineral density tests. For patients eligible for Medicare, routine testing is allowed once every 2 years. The testing frequency can be increased to one year for patients who have rapidly progressing disease, those who are receiving or discontinuing medical therapy to restore bone mass, or have additional risk factors.
== END 2024-03-06 07:45 | disposition home or self-care (01) ==
LOC: HO.MAMMO 07:44
PROVIDERS: PCP Internal Medicine; Visit Provider Internal Medicine
DX: Z12.31 Encounter for screening mammogram for malignant neoplasm of breast (principal); Z13.820 Encounter for screening for osteoporosis; S42.202A Unspecified fracture of upper end of left humerus, initial encounter for closed fracture; Z78.0 Asymptomatic menopausal state
CPT/HCPCS: 77063; 77067; 77080

== ENCOUNTER → 2024-03-06 08:00 | Outpatient (BNV) | payer OTHER, SELFPAY | PROVIDERS: PCP Internal Medicine; Visit Provider Radiology Diagnostic Radiology | DX: Z12.31 Encounter for screening mammogram for malignant neoplasm of breast (principal) | CPT/HCPCS: 77063; 77067 ==

== ENCOUNTER 2024-04-25 08:57 | Outpatient (AMB) | payer OTHER, SELFPAY ==
[2024-04-25 09:22] VITALS: BMI 43.5
--- NOTE | 2024-04-25 09:22 | MHC.AMNUTRGE ---
VS Expanded 04/25/24 09:22 Height 5 ft 2 in Weight 238 lb 1.588 oz BMI 43.5 Intake Visit Reasons: IFG/CONFIRMED Allergies No Known Allergies [No Known Allergies*] Allergy (Verified 02/21/24 11:23) Nutrition Presentation Details: Pt presents for MNT f/u PreDM, HDL Pt currently having difficulties with chewing due to trigeminal neuralgia. Pt reports following up with neurologist. Pt is needs education on soft diet BS Monitoring Most Recent Diabetes Results: Microalb/Creat Ratio 6.3 ug/mg cr (<30) 10/25/23 Cholesterol 184 mg/dL (<200) 02/15/24 HDL Cholesterol 39 mg/dL (>40) L 02/15/24 Triglycerides 381 mg/dL (<150) H 02/15/24 Creatinine 0.97 mg/dL (0.5-1.4) 02/15/24 Blood Urea Nitrogen 15 mg/dL (9-16) 02/15/24 Sodium 140 mmol/L (135-145) 02/15/24 Potassium 4.2 mmol/L (3.3-5.1) 02/15/24 Chloride 105 mmol/L (96-108) 02/15/24 Carbon Dioxide 24 mmol/L (22-29) 02/15/24 Calcium 9.4 mg/dL (8.4-10.2) 02/15/24 AST 13 U/L (5-31) 02/15/24 ALT 15 U/L (0-31) 02/15/24 [facility] Medical History (Updated 02/22/24 @ 01:32 by Raquel Hurley MD) Hx of fall Fracture of humerus, proximal, left, closed Intertrigo Tinea corporis Trigeminal neuralgia of left side of face ASCUS with positive high risk HPV Seasonal allergies Bipolar disorder Vitamin D deficiency Menopause Mild intermittent asthma GERD (gastroesophageal reflux disease) Psoriasis Impaired fasting glucose Mixed dyslipidemia Surgical History History of endometrial ablation Family History Father History of CVA (cerebrovascular accident) Lung cancer Depression Mother Diabetes mellitus Maternal Grandmother Diabetes mellitus Breast cancer Maternal Aunt Breast cancer Diabetes mellitus Maternal Uncle Colon cancer Brother No problems noted. Brother No problems noted. Sister No problems noted. Sister No problems noted. Son Mental health disorder Son No problems noted. Social History Household Members: None Housing: Apartment Alcohol intake: never Patient Tobacco Use Status: Former Tobacco user Years Smoked: 15 yrs e-Cigarette/Vaping Use: Never Used Second Hand Smoke Exposure: Yes service: No Current occupational status: unemployed Current occupation: right hand dominant Sexual orientation: Straight/Heterosexual Gender identity: Female Cognitive needs: No Hearing needs: No Vision needs: Yes Assessment & Plan Assessment & Plan (1) Impaired fasting glucose: Code(s): R73.01 - Impaired fasting glucose Category: Medical Plan: Soft protein foods to include in diet est kcal needs as per Bryan St Jeor: 1625 kcal/day (40% carb, 30% fat/prot) est prot needs as per 0.8-1.0 g adjusted Bw (73 kg) = 58-73 g/day est fluid needs as per 25 ml/kg bw: 1825 ml/d. Rec fiber intake 12-25 g as tolerated NA: < 1500 mg/d Educate patient on: (R= Reviewed, V = verbalizes understanding N/R= Needs review N/A= not applicable) Difference between complex carbohydrates and simple carbohydrates, role of fiber: R Differences between fats (MUFA/PUFA/saturated fats, trans fats) and food sources of various fats: R Food sources of sodium and salt and healthy modifications for heart health and kidney health: R Vitamins and minerals: R Physical activity: benefits and precaution: R (when cleared by MD) Patient Instructions: Have a variety of blenderized foods following healthy plate method see list of options Coding Level of Care Code Nutr Indiv Subseq (35932) Diagnoses Impaired fasting glucose R73.01 Time Spent (min) 30
== END 2024-04-25 10:05 | disposition home or self-care (01) ==
PROVIDERS: PCP Internal Medicine; Visit Provider Dietitian, Registered
DX: R73.01 Impaired fasting glucose (principal)

== ENCOUNTER → 2024-04-25 08:57 | Outpatient (BNVA) | payer OTHER, SELFPAY | PROVIDERS: PCP Internal Medicine; Visit Provider Dietitian, Registered | DX: R73.01 Impaired fasting glucose (principal) | CPT/HCPCS: 97803 ==

== ENCOUNTER 2024-05-18 08:46 | Outpatient (REF) | payer OTHER, SELFPAY ==
[2024-05-18 10:22] LABS: Estimated Average Glucose 117 mg/dL; Hemoglobin A1C 130.6143 umol/L; Hemoglobin A1c % 5.7 % (<6.0); Total Hemoglobin (HGBA1C) 3340.4747 umol/L
[2024-05-18 11:01] LABS: Alanine Aminotransferase 18 U/L (0-31); Anion Gap 12 (12-20); Aspartate Amino Transferase 16 U/L (5-31); Blood Urea Nitrogen 12 mg/dL (9-16); Calcium 9.3 mg/dL (8.4-10.2); Carbon Dioxide 28 mmol/L (22-29); Chloride 104 mmol/L (96-108); Cholesterol 174 mg/dL (<200); Estimated Glomerular Filt Rate > 60; Glucose Fasting 110 mg/dL (60-99); HDL Cholesterol 40 mg/dL (>40); LDL Cholesterol Calculated 81 mg/dL (<100); Potassium 4.2 mmol/L (3.3-5.1); Sodium 140 mmol/L (135-145); Triglycerides 265 mg/dL (<150)
[2024-05-18 11:05] LABS: TSH reflex Free T4 3.09 uIU/mL (0.32-4.0)
== END 2024-05-18 08:47 | disposition home or self-care (01) ==
LOC: HO.HMGCLDS 08:46
PROVIDERS: PCP Internal Medicine; Visit Provider Internal Medicine
DX: R73.01 Impaired fasting glucose (principal); E78.2 Mixed hyperlipidemia; J45.20 Mild intermittent asthma, uncomplicated
CPT/HCPCS: 36415; 80048; 80061; 83036; 84443; 84450; 84460

== ENCOUNTER 2024-05-30 15:19 | Outpatient (AMB) | payer OTHER, SELFPAY ==
[2024-05-30 15:22] VITALS: BP 122/80; PULSE 81; O2SAT 97; BMI 44.6
--- NOTE | 2024-05-30 15:22 | A.OFFPC_ITS ---
Vital Signs 05/30/24 15:22 Height 5 ft 2 in Weight 244 lb BMI 44.6 BP 122/80 Blood Pressure Location Rt brachial Position Sitting Pulse 81 Pulse Source Pulse Oximeter Pulse Oximetry (%) 97 Intake Visit Reasons: PE Intake Note: pt is here for PE Tube Balancer Required: No Accompanied by: Self / Same As Patient Allergies No Known Allergies [No Known Allergies*] Allergy (Verified 05/30/24 15:22) Tobacco use date assessed: 05/30/24 Dental Screening Dental Screen Date: 02/21/24 HPI HPI Comments History of Present Illness Details 59 y/o female patient who presents to [facility] for PE. Patient of Dr. Hurley. Pmhx of GERD, Mild Asthma, Bipolar, Dyslipidemia, Allergic rhinitis, Vitamin D deficiency, Psoriasis. [facility]: Mammo: 02/2024 BI-RADS 2 Negative PAP: 01/2023 NILM Neg HPV Bone Density: 02/2024. WNL Colonoscopy: Maybe 3 years ago per Patient. PFS Medical History Hx of fall Fracture of humerus, proximal, left, closed Intertrigo Tinea corporis Trigeminal neuralgia of left side of face ASCUS with positive high risk HPV Seasonal allergies Bipolar disorder Vitamin D deficiency Menopause Mild intermittent asthma GERD (gastroesophageal reflux disease) Psoriasis Impaired fasting glucose Mixed dyslipidemia Surgical History History of endometrial ablation Family History Father History of CVA (cerebrovascular accident) Lung cancer Depression Mother Diabetes mellitus Maternal Grandmother Diabetes mellitus Breast cancer Maternal Aunt Breast cancer Diabetes mellitus Maternal Uncle Colon cancer Brother No problems noted. Brother No problems noted. Sister No problems noted. Sister No problems noted. Son Mental health disorder Son No problems noted. Social History Household Members: None Housing: Apartment Alcohol intake: never Patient Tobacco Use Status: Former Tobacco user Years Smoked: 15 yrs e-Cigarette/Vaping Use: Never Used Second Hand Smoke Exposure: Yes service: No Current occupational status: unemployed Current occupation: right hand dominant Sexual orientation: Straight/Heterosexual Gender identity: Female Cognitive needs: No Hearing needs: No Vision needs: Yes Questionnaire Thrive Questionnaire Date Thrive assessed: 02/14/24 I am a: Patient What is your living situation today?: I have a place to live, but I am worried about losing it in the future Within the past 12 months, did the food you bought not last and you didn't have the money to get more?: Never true Within the past 12 months, did you worry whether your food would run out before you got money to buy more?: Never true Do you have trouble paying for medicines?: No Do you have trouble getting transportation to medical appointments?: No Do you have trouble paying your heating and electricity bill?: No Do you have trouble taking care of your child, family member or friend?: No Do you have trouble with day-to-day activities such as bathing, preparing meals, shopping, managing finances, etc.?: No Are you currently unemployed and looking for a job?: No Are you interested in more education?: No Please select the resources that you would like help with: None Currently or been in a relationship where the following occur: No concerns reported THRIVE Score: 1 SAM-7 AMB Questionnaire SAM-7 Date SAM - 7 assessed: 02/21/24 Source: Developed by Drs. Brett Espinoza, Allison Rutledge, Yanick Mac and colleagues, with an educational aleksey from [employer]. Review of Systems Const All systems reviewed & are unremarkable except as noted in HPI and below Physical exam (Primary Care) Vital Signs: Last Vital Signs Pulse 81 05/30/24 15:22 BP 122/80 05/30/24 15:22 Pulse Ox 97 05/30/24 15:22 BMI result Body Mass Index 44.6 Tobacco/Smoking Status: Tobacco use Status Tobacco use date assessed 05/30/24 05/30/24 15:23 Patient Tobacco Use Status Former Tobacco user 05/30/24 15:23 e-Cigarette/Vaping Use Never Used 05/30/24 15:23 Thrive Assessment: Date of Thrive Assessment Date Thrive assessed 02/14/24 05/30/24 15:23 Currently or been in a relationship where the following occur: No concerns reported Const General: cooperative, comfortable and no acute distress Nutritional Appearance: obese Orientation/consciousness: patient oriented x3 HENMT Head: Yes normocephalic Ears: hearing grossly normal bilaterally, external ears normal and TM's normal bilaterally General nose exam: Normal external nose present Face and sinus: Yes sinuses nontender Mouth: moist mucous membranes Throat: Yes tonsils normal and Yes uvula midline Eyes Eyelids: Yes eyelids normal Pupils: Equal, round and reactive pupils present EOM: EOMs intact bilaterally Neck Neck: Yes full ROM and Yes no lymphadenopathy Thyroid: Thyroid normal Resp Effort & Inspection: normal respiratory effort and able to speak in complete sentences Auscultation: clear to auscultation bilaterally, no crackles, no rales, no rhonchi and no wheezes Cardio Heart sounds: S1 normal heart sound present and S2 normal heart sound present GI Inspection: Yes Abdominal panniculus present and Yes obesity Palpation (GI): Soft to palpation, not firm, nontender, no guarding, not rigid and No hepatosplenomegaly present Auscultation: normal bowel sounds Rectal Exam - Female: deferred General: Yes no CVA tenderness and Yes deferred Back/Spine/Pelvis Back: no CVA tenderness and back tenderness Skin General skin exam: crusts, dry skin and erythema Lesions: lesion noted (B/L behind elbows - psoriatic lesions) Neuro General: patient oriented x3, gait normal and moves all extremities Cranial nerves: Yes Equal, round and reactive pupils present, Yes Bilaterally intact EOM present and Yes Midline tongue present Motor exam (neuro): 5/5 motor strength present throughout Extrem General: Yes full ROM and Yes capillary refill normal Psych Speech and movement: Normal speech and movement present Coding Level of Care Code Est Pt Prev Care 40-64y(52715) Diagnoses Encounter for routine adult health examination without abnormal findings Z00.00 Mixed dyslipidemia E78.2 Gastroesophageal reflux disease without esophagitis K21.9 Esophagitis presence: without esophagitis Mild intermittent asthma without complication J45.20 Asthma complication type: uncomplicated Seasonal allergies J30.2 Bipolar affective disorder, current episode depressed, current episode severity unspecified F31.30 Active/Remission status: currently active Current bipolar episode type: depressed Current episode severity: unspecified Psoriasis L40.9 Assessment & Plan Assessment & Plan (1) Encounter for routine adult health examination without abnormal findings: Code(s): Z00.00 - Encounter for general adult medical examination without abnormal findings Plan: Psoariatic lesion B/L elbows (2) Mixed dyslipidemia: Code(s): E78.2 - Mixed hyperlipidemia Category: Medical Plan: Lifestyle changes, weight loss, healthy diet and exercise. (3) GERD (gastroesophageal reflux disease): Code(s): K21.9 - Gastro-esophageal reflux disease without esophagitis Category: Medical Qualifiers: Esophagitis presence: without esophagitis Qualified Code(s): K21.9 - Gastro-esophageal reflux disease without esophagitis Plan: Continue on current regiment. (4) Mild intermittent asthma: Code(s): J45.20 - Mild intermittent asthma, uncomplicated Category: Medical Qualifiers: Asthma complication type: uncomplicated Qualified Code(s): J45.20 - Mild intermittent asthma, uncomplicated Plan: Continue on current regiment. (5) Seasonal allergies: Code(s): J30.2 - Other seasonal allergic rhinitis Category: Medical Plan: Continue on current regiment. (6) Bipolar disorder: Comment: followed at [facility] Code(s): F31.9 - Bipolar disorder, unspecified Category: Medical Qualifiers: Active/Remission status: currently active Current bipolar episode type: depressed Current episode severity: unspecified Qualified Code(s): F31.30 - Bipolar disorder, current episode depressed, mild or moderate severity, unspecified Plan: Managed by Psych (7) Psoriasis: Code(s): L40.9 - Psoriasis, unspecified Category: Medical Plan: Ordered Clobetasol Medications: New clobetasol 0.05% APPLY A THIN LAYER TO THE AFFECTED SKIN FOR 2 WEEKS ON. PAUSE FOR 1 WEEK, THEN CONTINUE FOR THE NEXT 2 WEEKS. 1 appl topical BID 2 weeks 30 grams 1RF L40.9 - Psoriasis, unspecified Refilled fluticasone propionate 50 mcg/actuation 1 spray intranasal DAILY 16 grams 2RF J30.2 - Other seasonal allergic rhinitis
== END 2024-05-30 16:02 | disposition home or self-care (01) ==
LOC: HO.HMCC 15:20
PROVIDERS: PCP Internal Medicine; Visit Provider Nurse Practitioner Family
DX: Z00.00 Encounter for general adult medical examination without abnormal findings (principal); F31.30 Bipolar disorder, current episode depressed, mild or moderate severity, unspecified; E78.2 Mixed hyperlipidemia; K21.9 Gastro-esophageal reflux disease without esophagitis; J45.20 Mild intermittent asthma, uncomplicated; J30.2 Other seasonal allergic rhinitis; L40.9 Psoriasis, unspecified

== ENCOUNTER → 2024-05-30 15:19 | Outpatient (BNVA) | payer OTHER, SELFPAY | PROVIDERS: PCP Internal Medicine; Visit Provider Nurse Practitioner Family | DX: Z00.00 Encounter for general adult medical examination without abnormal findings (principal); E78.2 Mixed hyperlipidemia; K21.9 Gastro-esophageal reflux disease without esophagitis; J45.20 Mild intermittent asthma, uncomplicated; J30.2 Other seasonal allergic rhinitis; F31.30 Bipolar disorder, current episode depressed, mild or moderate severity, unspecified; L40.9 Psoriasis, unspecified | CPT/HCPCS: 99396 ==

== ENCOUNTER 2024-07-31 09:20 | Outpatient (AMB) | payer OTHER, SELFPAY ==
--- NOTE | 2024-07-31 09:39 | A.OFFVIS_ITS ---
Vital Signs 07/31/24 09:48 Height 5 ft 2 in Weight 244 lb BMI 44.6 Handedness Right Intake Visit Reasons: New Prob - right wrist pain Intake Note: Haritha is a 59 year old right hand dominant female who presents today for a evaluation of her right wrist pain. Patient reports at the end of April she slipped and feel which lead her land on her wrist which she felt it twist. She mentions that she went to the urgent care which they didn't do x rays and gave her a brace which gave her relief. Patient reports soreness on the dorsal aspect of the wrist since the injury. She mentions that her soreness radiates up to her elbow. Having off and on numbness after the injury. Patient has tried Diclofinac cream with relief. Allergies No Known Allergies [No Known Allergies*] Allergy (Verified 07/31/24 09:46) HPI HPI New Prob - right wrist pain: Details: Patient presents to the office today for evaluation of right wrist pain. She reports that she was seen in the walk-in urgent care on 02/07/2024 where she complained of right wrist pain after trying to open a jar forcefully. She was given a Velcro wrist splint. She reports that no x-rays were obtained at that time and she is concerned that there was perhaps a missed fracture. Patient reports that at the time she was able to perform range of motion. She does use topical diclofenac cream which does help. [facility] Medical History Hx of fall Fracture of humerus, proximal, left, closed Intertrigo Tinea corporis Trigeminal neuralgia of left side of face ASCUS with positive high risk HPV Seasonal allergies Bipolar disorder Vitamin D deficiency Menopause Mild intermittent asthma GERD (gastroesophageal reflux disease) Psoriasis Impaired fasting glucose Mixed dyslipidemia Surgical History History of endometrial ablation Family History Father History of CVA (cerebrovascular accident) Lung cancer Depression Mother Diabetes mellitus Maternal Grandmother Diabetes mellitus Breast cancer Maternal Aunt Breast cancer Diabetes mellitus Maternal Uncle Colon cancer Brother No problems noted. Brother No problems noted. Sister No problems noted. Sister No problems noted. Son Mental health disorder Son No problems noted. Social History Household Members: None Housing: Apartment Alcohol intake: never Patient Tobacco Use Status: Former Tobacco user Years Smoked: 15 yrs e-Cigarette/Vaping Use: Never Used Second Hand Smoke Exposure: Yes service: No Current occupational status: unemployed Current occupation: right hand dominant Sexual orientation: Straight/Heterosexual Gender identity: Female Cognitive needs: No Hearing needs: No Vision needs: Yes Physical Exam Vital Signs: BMI result Body Mass Index 44.6 Extrem Other: Right hand: Normal to inspection. No ecchymosis, erythema, or edema. Able to perform full finger flexion, extension, abduction, adduction, finger cross, okay sign, and thumbs up without deficit. Able to make a closed fist. Able to flex and extend the wrist to end range. Sensation intact. Capillary refill is brisk. Radial pulse intact. Assessment & Plan Assessment & Plan (1) Osteoarthritis of right wrist: Code(s): M19.031 - Primary osteoarthritis, right wrist Category: Medical Plan: Patient presents to the office today for evaluation of right wrist pain. She reports that she was seen in the walk-in urgent care on 02/07/2024 where she complained of right wrist pain after trying to open a jar forcefully. She was given a Velcro wrist splint. She reports that no x-rays were obtained at that time and she is concerned that there was perhaps a missed fracture. Patient reports that at the time she was able to perform range of motion. She does use topical diclofenac cream which does help. Patient was offered a Comfort Cool brace. She can wear this while performing activities specifically while driving as this causes her the most pain. Otherwise she should remain out of the brace and performing range of motion activities to prevent any stiffness. When reviewing her x-rays in the office today she does have significant osteoarthritis at the wrist and throughout the carpal bones. I do not see any evidence of a previous fracture at this time. She can resume back to normal activities as tolerated. We did discuss the role of cortisone injection however she has elected to hold off at this time. Should she want to move forward with this appointment should be made with Dr. Dougherty. She will follow up p.r.n. sooner if needed. X-rays of the right wrist which were obtained while in the office today and were reviewed by me, Swapna Forte PA-C, revealed no evidence of acute fracture or dislocation. Orders: Orders XR wrist RT min 3V Today M25.539 - Pain in unspecified wrist Medications: Refilled diclofenac sodium 1% (Arthritis Pain (diclofenac)) apply to single elbow, wrist or hand; for hand includes palm/fingers/back of hand 2 grams topical QID PRN 100 grams 0RF left ankle pain Coding Level of Care Code Est Pt Level 3 (13759) Diagnoses Osteoarthritis of right wrist M19.031
[2024-07-31 09:48] VITALS: BMI 44.6
== END 2024-07-31 10:14 | disposition home or self-care (01) ==
PROVIDERS: PCP Internal Medicine; Visit Provider Physician Assistant
DX: M19.031 Primary osteoarthritis, right wrist (principal)
CPT/HCPCS: 99213

== ENCOUNTER 2024-07-31 09:31 | Outpatient (REF) | payer OTHER, SELFPAY ==
--- NOTE | ~2024-07-31 | XR_ITS ---
EXAMINATION: XR WRIST 3 OR MORE VIEWS RIGHT HISTORY: M25.539 - Pain in unspecified wrist COMPARISON: Correlation is made with plain films of the right hand dated 02/02/2013. FINDINGS: Three views of the right wrist are submitted. Osseous mineralization is normal. There is no fracture or dislocation. The joint spaces are preserved. The soft tissues are unremarkable. XR/XR wrist RT min 3V IMPRESSION: Unremarkable examination of the right wrist. Electronically signed by: Brett Montesinos MD 08/02/2024 01:01 PM [facility]
== END 2024-07-31 09:32 | disposition home or self-care (01) ==
LOC: HO.HOSX 09:31
PROVIDERS: Visit Provider Physician Assistant
DX: M25.531 Pain in right wrist (principal)
CPT/HCPCS: 73110; 99212

== ENCOUNTER → 2024-07-31 09:32 | Outpatient (BNV) | payer OTHER, SELFPAY | PROVIDERS: Visit Provider Radiology Diagnostic Radiology | DX: M25.531 Pain in right wrist (principal) | CPT/HCPCS: 73110 ==

== ENCOUNTER → 2024-08-28 08:50 | Outpatient (BNVA) | payer OTHER, SELFPAY | PROVIDERS: PCP Internal Medicine; Visit Provider Dietitian, Registered | DX: R73.01 Impaired fasting glucose (principal) | CPT/HCPCS: 97803 ==

== ENCOUNTER 2024-09-12 13:43 | Outpatient (AMB) | payer OTHER, SELFPAY ==
--- OUTSIDE RECORDS SUMMARY | 2024-09-12 14:06 | XMS_ITS | Clinical Summary ---
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 Max Daily Amount: 20 mg 5 tablet 3 Active ibuprofen (MOTRIN) 600 mg tablet Take 1 tablet (600 mg total) by mouth every 6 hours as needed for pain for up to 20 doses. 20 tablet 3 Active Social History Tobacco Use Types Packs/Day Years Used Date Smoking Tobacco: Never Assessed Comments Unknown Sex and Gender Information Value Date Recorded Sex Assigned at Not on file Legal Sex Female 12:25 PM EDT Gender Identity Not on file Sexual Orientation Not on file Last Filed Vital Signs Vital Sign Reading Time Taken Comments Blood Pressure 112/77 10/17/2022 11:38 AM EDT Pulse 69 10/17/2022 11:38 AM EDT Temperature 36.6 ??C (97.9 ??F) 10/17/2022 11:38 AM E DT Respiratory Rate 18 10/17/2022 11:38 AM EDT Oxygen Saturation 98% 10/17/2022 11:38 AM EDT Inhaled Oxygen Concentration - - Weight 110 kg (242 lb 8.1 oz) 10/17/2022 11:38 A M EDT Height - - Body Mass Index - - Plan of Treatment Health Maintenance Due Date Last Done Comments Cervical Cancer Screening 1964 Cologuard 1964 Colon Cancer Screening 1964 Colonoscopy 1964 FOBT / Fit Test 1964 HIV Screening 1964 HPV and Pap Smear 1964 Hepatitis C Screening 1964 Pap Smear 1964 Sigmoidoscopy 1964 Mammogram 2004 Pneumococcal Vaccine: 50+ Years (1 of 1 - PCV) 2014 COVID-19 Vaccine (3 - season) 2024 08/05/2021, 11/29/2020 Influenza Vaccine (#1) 2024 , 05/27/2021, 04/25/2019, Additional history exists Alcohol/Substance Use Screening 07/25/2024 Depression Evaluation 07/25/2024 Social Drivers of Health Annual Screening 07/25/2024 DTaP,Tdap,and Td Vaccines (2 - Td or Tdap) 12/29/2027 12/28/2017 RSV Vaccine (60+ years old and patients) (1 - 1-dose 75+ series) 2039 Zoster Vaccines Completed 01/07/2021, 09/04/2020 Hepatitis B Vaccines Aged Out No long er eligible based on patient's age to complete this topic Pneumococcal Vaccine: Pediatric (0-5 Years) and At-Risk Patients (6-50 Years) Aged Out No longer eligible based on patient's age to complete this topic Insurance [place] [address] Care Teams Dinkey Engine Mechanic Relationship Specialty Start Date End Date Raquel Hurley MD [address] [facility] [place] [address] PCP - General Internal Medicine 10/17/22
--- OUTSIDE RECORDS SUMMARY | 2024-09-12 14:06 | XMS_ITS | Referral Summary ---
Author Organization [facility] Address [address] [place] [address] Care Team Providers Care Rag Inspector Name Role Phone Raquel Hurley MD Primary [...] Mass Index - - Plan of Treatment Not on file Insurance [facility] MEDICAID Care Teams Rag Inspector Relationship Specialty Start Date End Date Raquel Hurley MD [address] [place] [address] PCP - General Internal Medicine 10/17/22
--- NOTE | 2024-09-12 14:14 | AM.OFFWIN_ITS ---
Intake Vital Signs 09/12/24 14:19 Weight 245 lb BP 128/84 Blood Pressure Location Lt brachial Position Sitting Pulse 58 Pulse Source Pulse Oximeter Pulse Oximetry (%) 97 Oxygen Delivery Method Room Air Intake Visit Reasons: EP pain on RT hand due to a fall [phone] Intake Note: Patient here because she had a fall yesterday and landed on on her right hand. Patient Tobacco Use Status: Former Tobacco user Allergies No Known Allergies [No Known Allergies*] Allergy (Verified 09/12/24 14:20) Do you need a note to return to daycare/school/sports/work: No HPI HPI Comments History of Present Illness Details History of Present Illness - The patient is a 59-year-old female pr esenting after a fall with pain and swelling in the right arm. - Yesterday, she experienced a fall that resulted in a contusion on the right arm and noted immediate pain in the forearm and swelling in the hand. Pain worse with movement of the elbow and wrist. Can move hand and fingers okay. - The patient managed symptoms at home w ith ibuprofen and ice, marking minimal improvement a day post-injury. - A detailed background includes histori estephanie fractures of the left arm, incurred during a past bowling incident, treated by [facility]. - The patient denies symptoms of numbnes s or tingling of the arm or hand - Patient has undergone a bone density s can previously, with no diagnosed osteoporosis or osteopenia, although an incidental hip fracture was noted in her history. Physical Exam General: Cooperative, healthy appearing, comfortable, no acute distress and well developed Orientation: Patient oriented x3 Limitations: No limitations Head: Normal to inspection Ears: Hearing grossly normal bilaterally Nose: Normal external nose present Face and sinus: Normal facial exam Eyes: Appearance normal, both eyes and all related structures Neck: Normal visual inspection and Yes full ROM Respiratory: Normal respiratory effort and able to speak in complete sentences. Skin: No rashes or lesions noted Neuro: Patient oriented x3 Extremities: as below [facility] Medical History Hx of fall Fracture of humerus, proximal, left, closed Intertrigo Tinea corporis Trigeminal neuralgia of left side of face ASCUS with positive high risk HPV Seasonal allergies Bipolar disorder Vitamin D deficiency Menopause Mild intermittent asthma GERD (gastroesophageal reflux disease) Psoriasis Impaired fasting glucose Mixed dyslipidemia Surgical History History of endometrial ablation Family History Father History of CVA (cerebrovascular accident) Lung cancer Depression Mother Diabetes mellitus Maternal Grandmother Diabetes mellitus Breast cancer Maternal Aunt Breast cancer Diabetes mellitus Maternal Uncle Colon cancer Brother No problems noted. Brother No problems noted. Sister No problems noted. Sister No problems noted. Son Mental health disorder Son No problems noted. Social History Household Members: None Housing: Apartment Alcohol intake: never Patient Tobacco Use Status: Former Tobacco user Years Smoked: 15 yrs e-Cigarette/Vaping Use: Never Used Second Hand Smoke Exposure: Yes service: No Current occupational status: unemployed Current occupation: right hand dominant Sexual orientation: Straight/Heterosexual Gender identity: Female Cognitive needs: No Hearing needs: No Vision needs: Yes Review of Systems Const All systems reviewed & are unremarkable except as noted in HPI and below Physical Exam Vital Signs: Last Vital Signs Pulse 58 09/12/24 14:19 BP 128/84 09/12/24 14:19 Pulse Ox 97 09/12/24 14:19 Oxygen Delivery Method Room Air 09/12/24 14:19 Extrem Right upper extremity: shoulder/upper arm Details: normal to inspection and normal ROM; no tenderness and no swelling, elbow/forearm Details: normal to inspection, tenderness Location: of the mid-shaft forearm and of the radial head; not of the lateral epicondyle and not of the medial epicondyle, abnormal ROM Details: pain with active ROM during Details: with extension, with flexion, with pronation and with supination and pain with passive ROM during Details: with extension, with flexion, with pronation and with supination and distal pulses intact; no swelling, no unusual warmth, no abrasions, no lacerations, no ecchymosis and no crepitus, wrist Details: normal to inspection, abnormal ROM Details: pain with active ROM during Details: with extension, with flexion, with ABduction and with ADduction and pain with passive ROM during Details: with extension, with flexion, with ABduction and with ADduction, normal vascular exam, radial pulse present and ulnar pulse present; no tenderness, no swelling, no unusual warmth, no abrasions, no lacerations and no ecchymosis and Extremity exam: right hand Details: normal to inspection, normal capillary refill, neuromotor exam normal, neurosensory exam normal, tendon exam normal and normal ROM of fingers; no tenderness, no unusual warmth, no swelling, no abrasions, no lacerations and no ecchymosis Assessment & Plan Assessment & Plan (1) Fall as cause of accidental injury at home as place of occurrence: Code(s): W19.XXXA - Unspecified fall, initial encounter; Y92.009 - Unspecified place in unspecified non-institutional (private) residence as the place of occurrence of the external cause Qualifiers: Encounter type: initial encounter Qualified Code(s): W19.XXXA - Unspecified fall, initial encounter; Y92.009 - Unspecified place in unspecified non-institutional (private) residence as the place of occurrence of the external cause Plan: An X-ray of the patient's right elbow and wrist is planned to evaluate for any new fractures following the fall. Based on the physical examination findings of pain, swelling, further imaging is warranted to exclude more serious injuries or damage. For current management, the patient should maintain analgesic use, rest and ice the affected area. Follow-up may be directed by imaging results, potentially involving orthopedics if more invasive interventions become necessary. The management plan will adapt according to diagnostic findings, offering both reassurance and structured medical guidance. XR showed Elbow joint effusion with nondisplaced intra-articular fracture radial head. . Gave pt sling, rec rest, ice and Aleve ATC x 3-4 days then start ROM on shoulder and elbow and wrist. Sent [facility] referral. Patient was informed and verbally consented to the use of an ambient scribe for clinic note documentation during this visit. (2) Elbow pain, right: Code(s): M25.521 - Pain in right elbow Plan: as above (3) Wrist pain, right: Code(s): M25.531 - Pain in right wrist Plan: as above (4) Right radial head fracture: Code(s): S52.121A - Displaced fracture of head of right radius, initial encounter for closed fracture Qualifiers: Encounter type: initial encounter Fracture type: closed Fracture alignment: nondisplaced Qualified Code(s): S52.124A - Nondisplaced fracture of head of right radius, initial encounter for closed fracture Plan: as above Orders: Orders XR elbow RT min 3V Today M25.521 - Pain in right elbow, M25.531 - Pain in right wrist, W19.XXXA - Unspecified fall, initial encounter, Y92.009 - Unspecified place in unspecified non-institutional (private) residence as the place of occurrence of the external cause Coding Level of Care Code Est Pt Level 4 (13817) Diagnoses Fall as cause of accidental injury in home as place of occurrence, initial encounter W19.XXXA; Y92.009 Encounter type: initial encounter Elbow pain, right M25.521 Wrist pain, right M25.531 Closed nondisplaced fracture of head of right radius, initial encounter S52.124A Encounter type: initial encounter Fracture type: closed Fracture alignment: nondisplaced
[2024-09-12 14:19] VITALS: BP 128/84; PULSE 58; O2SAT 97
== END 2024-09-12 15:26 | disposition home or self-care (01) ==
PROVIDERS: PCP Internal Medicine; Visit Provider Physician Assistant
DX: M25.521 Pain in right elbow (principal); M25.531 Pain in right wrist; W19.XXXA Unspecified fall, initial encounter; Y92.009 Unspecified place in unspecified non-institutional (private) residence as the place of occurrence of the external cause; S52.124A Nondisplaced fracture of head of right radius, initial encounter for closed fracture

== ENCOUNTER 2024-09-12 14:39 | Outpatient (REF) | payer OTHER, SELFPAY ==
--- NOTE | ~2024-09-12 | XR_ITS ---
EXAMINATION: XR FOREARM, RIGHT CLINICAL INFORMATION: M25.531 - Pain in right wrist COMPARISON: None available. TECHNIQUE: AP and lateral views of the right forearm were obtained. FINDINGS: Suspect nondisplaced intra-articular fracture of the radial head. Elbow joint effusion. No malalignment. Remainder of the osseous structures appear intact. No soft tissue abnormalities. XR/XR forearm RT 2V IMPRESSION: Elbow joint effusion with nondisplaced intra-articular fracture radial head. Electronically signed by: Taras Sepulveda MD 09/12/2024 03:21 PM [facility]SSES
--- OUTSIDE RECORDS SUMMARY | 2024-09-12 14:42 | XMS_ITS | Referral Summary ---
Author Organization [facility] Address [address] [place] [address] Care Team Providers Care Band Tumbler Name Role Phone Raquel Hurley MD Primary [...] Plan of Treatment Not on file Insurance [facility] [address] MEDICAID Care Teams Band Tumbler Relationship Specialty Start Date End Date Raquel Hurley MD [address] [place] [address] PCP - General Internal Medicine 10/17/22
--- OUTSIDE RECORDS SUMMARY | 2024-09-12 14:42 | XMS_ITS | Clinical Summary ---
Author Organization [facility] Address [address] [place] [address] Care Team Providers Care Disassembler Name Role Phone Raquel Hurley MD Primary [...] to complete this topic Insurance [employer] MED[employer] Care Teams Disassembler Relationship Specialty Start Date End Date Raquel Hurley MD [address] [facility] [place] [address] PCP - General Internal Medicine 10/17/22
== END 2024-09-12 14:40 | disposition home or self-care (01) ==
LOC: HO.HMGCX 14:39
PROVIDERS: PCP Internal Medicine; Visit Provider Physician Assistant
DX: S52.124A Nondisplaced fracture of head of right radius, initial encounter for closed fracture (principal); W19.XXXA Unspecified fall, initial encounter; Y92.009 Unspecified place in unspecified non-institutional (private) residence as the place of occurrence of the external cause
CPT/HCPCS: 73090; 99212

== ENCOUNTER → 2024-09-12 14:49 | Outpatient (BNV) | payer OTHER, SELFPAY | PROVIDERS: PCP Internal Medicine; Visit Provider Radiology Diagnostic Radiology | DX: M25.421 Effusion, right elbow (principal); S52.571A Other intraarticular fracture of lower end of right radius, initial encounter for closed fracture | CPT/HCPCS: 73090 ==

== ENCOUNTER 2024-09-21 11:23 | Outpatient (REF) | payer OTHER, SELFPAY ==
--- NOTE | ~2024-09-21 | XR_ITS ---
EXAMINATION: XR ELBOW 3 VIEWS RIGHT HISTORY: M25.521 - Pain in right elbow COMPARISON: Correlation is made to plain films of the right forearm dated 09/12/2024. FINDINGS: Three views of the right elbow are submitted. Osseous mineralization is normal. There is slight irregularity of the radial head at the site of the previously noted fracture. The fracture line is poorly visualized. There is no dislocation. The joint spaces are preserved. There is a persistent joint effusion with elevation of anterior posterior fat pads. XR/XR elbow RT min 3V IMPRESSION: Slight irregularity of the radial head at the site of the previously noted fracture. The fracture line is poorly visualized. Electronically signed by: Brett Montesinos MD 09/24/2024 09:11 AM ULYSSES
--- OUTSIDE RECORDS SUMMARY | 2024-09-21 13:35 | XMS_ITS | Referral Summary ---
Author Organization [facility] Address [address] [place] [address] Care Team Providers Care Human Resources Associate Name Role Phone Raquel Hurley MD Primary [...] Plan of Treatment Not on file Insurance [facility] MEDICAID Care Teams Human Resources Associate Relationship Specialty Start Date End Date Raquel Hurley MD [address] [place] [address] PCP - General Internal Medicine 10/17/22
--- OUTSIDE RECORDS SUMMARY | 2024-09-21 13:35 | XMS_ITS | Clinical Summary ---
Author Organization [facility] Address [address] [place] [address] Care Team Providers Care Extrusion Die Repair Manager Name Role Phone Raquel Hurley MD Primary [...] of 1 - PCV) 2014 COVID-19 Vaccine ( - season) 2024 08/05/2021, 11/29/2020 Influenza Vaccine (#1) 2024 2, 05/27/2021, 04/25/2019, Additional history exists Alcohol/Substance Use [...] this topic Insurance [employer] Care Teams Extrusion Die Repair Manager Relationship Specialty Start Date End Date Raquel Hurley MD [address] [place] [address] PCP - General Internal Medicine 10/17/22
== END 2024-09-21 11:24 | disposition home or self-care (01) ==
LOC: HO.HOSX 11:23
DX: M25.521 Pain in right elbow (principal); S52.124A Nondisplaced fracture of head of right radius, initial encounter for closed fracture
CPT/HCPCS: 73080; 99202

== ENCOUNTER 2024-09-21 13:38 | Outpatient (AMB) | payer OTHER, SELFPAY ==
[2024-09-21 13:59] VITALS: BMI 44.8
--- NOTE | 2024-09-21 13:59 | A.OFFVIS_ITS ---
Vital Signs 09/21/24 13:59 Height 5 ft 2 in Weight 245 lb BMI 44.8 Intake Visit Reasons: FC- Right radius head fx DOI 09/11/24 Intake Note: Haritha 59 yr old - hand dominant female presents today for a new patient visit for her right hand radius head fracture from 09/11/24. States she slipped and fell on ice. Seen at [facility] in clinic where xrays were taken , states she received a call the next day informing her she has a fracture. Currently states she has pain in her elbow, on and off since her fall. Allergies No Known Allergies [No Known Allergies*] Allergy (Verified 09/21/24 14:05) HPI HPI FC- Right radius head fx DOI 09/11/24: Details: Haritha 59 yr old - hand dominant female presents today for a new patient visit for her right hand radius head fracture from 09/11/24. States she slipped and fell on ice. Seen at [facility] in clinic where xrays were taken , states she received a call the next day informing her she has a fracture. Currently states she has pain in her elbow, on and off since her fall. Patient reports that she was given a sling at previous evaluation in the urgent care, but this sling tore, and she has not been wearing 1 since. [facility] Medical History Hx of fall Fracture of humerus, proximal, left, closed Intertrigo Tinea corporis Trigeminal neuralgia of left side of face ASCUS with positive high risk HPV Seasonal allergies Bipolar disorder Vitamin D deficiency Menopause Mild intermittent asthma GERD (gastroesophageal reflux disease) Psoriasis Impaired fasting glucose Mixed dyslipidemia Surgical History History of endometrial ablation Family History Father History of CVA (cerebrovascular accident) Lung cancer Depression Mother Diabetes mellitus Maternal Grandmother Diabetes mellitus Breast cancer Maternal Aunt Breast cancer Diabetes mellitus Maternal Uncle Colon cancer Brother No problems noted. Brother No problems noted. Sister No problems noted. Sister No problems noted. Son Mental health disorder Son No problems noted. 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 [employer] Sexual orientation: Straight/Heterosexual Gender identity: Female Cognitive needs: No Hearing needs: No Vision needs: Yes Review of Systems Const All systems reviewed & are unremarkable except as noted in HPI and below Physical Exam Vital Signs: BMI result Body Mass Index 44.8 Extrem Other: Patient's right elbow normal to inspection No erythema, ecchymosis, edema noted No lacerations, abrasions, open areas No evidence of infection Patient reports no tenderness to palpation of the right radial head, olecranon process, or elsewhere on the right elbow Distal sensation intact Capillary refill brisk Office Procedures AMB Fracture Care Fracture Billing Code: Fracture Billing Code Results Reviewed Results Reviewed: X-rays obtained in the office today and independently reviewed by me, Misael Sanchez PA-C, demonstrate nondisplaced fracture of the right radial head. Assessment & Plan Assessment & Plan (1) Right radial head fracture: Code(s): S52.121A - Displaced fracture of head of right radius, initial encounter for closed fracture Category: Medical Qualifiers: Encounter type: initial encounter Fracture type: closed Fracture alignment: nondisplaced Qualified Code(s): S52.124A - Nondisplaced fracture of head of right radius, initial encounter for closed fracture Plan 1. Right radial head fracture Date of injury 09/11/2024 Patient is educated about this injury Patient is educated about the typical recovery course At this time, patient is given a new sling to wear with all daytime activities except for bathing Patient was educated she should continue working on range of motion of the right wrist and hand in order to prevent stiffness of the joints Patient was educated that that she has a strict 2 lb weight limit in the right hand Patient was amenable to this plan Patient will follow-up in 1-2 weeks with repeat x-rays for reassessment, sooner with any acute concerns Orders: Orders XR elbow RT min 3V Today M25.521 - Pain in right elbow Coding Level of Care Code New Pt Level 3 (17508) Diagnoses Closed nondisplaced fracture of head of right radius, initial encounter S52.124A Encounter type: initial encounter Fracture type: closed Fracture alignment: nondisplaced CPT Codes Fracture Care - Fracture Billing Code: Fracture Billing Code ([id number])
--- OUTSIDE RECORDS SUMMARY | 2024-09-21 15:47 | XMS_ITS | Referral Summary ---
Author Organization [facility] Address [address] [place] [address] Care Team Providers Care Machine Egg Washer Name Role Phone Raquel Hurley MD Primary [...] Plan of Treatment Not on file Insurance [facility] MEDICAID Care Teams Machine Egg Washer Relationship Specialty Start Date End Date Raquel Hurley MD [address] [place] [address] PCP - General Internal Medicine 10/17/22
--- OUTSIDE RECORDS SUMMARY | 2024-09-21 15:47 | XMS_ITS | Clinical Summary ---
Author Organization [facility] Address [address] [place] [address] Care Team Providers Care Occupational Health Manager Name Role Phone Raquel Hurley MD [...] this topic Insurance [employer] Care Teams Occupational Health Manager Relationship Specialty Start Date End Date Raquel Hurley MD [address] [place] [address] PCP - General Internal Medicine 10/17/22
== END 2024-09-21 14:35 | disposition home or self-care (01) ==
PROVIDERS: PCP Internal Medicine
DX: S52.124A Nondisplaced fracture of head of right radius, initial encounter for closed fracture (principal)
CPT/HCPCS: 99203

== ENCOUNTER → 2024-09-21 13:54 | Outpatient (BNV) | payer OTHER, SELFPAY | PROVIDERS: Visit Provider Radiology Diagnostic Radiology | DX: S52.124A Nondisplaced fracture of head of right radius, initial encounter for closed fracture (principal) | CPT/HCPCS: 73080 ==

== ENCOUNTER 2024-10-02 14:31 | Outpatient (REF) | payer OTHER, SELFPAY ==
--- OUTSIDE RECORDS SUMMARY | 2024-10-02 17:48 | XMS_ITS | Clinical Summary ---
Author Organization [facility] Address [address] [place] [address] Care Team Providers Care Rn Cardiovascular Name Role Phone Raquel Hurley MD Primary [...] this topic Insurance [employer] Care Teams Rn Cardiovascular Relationship Specialty Start Date End Date Raquel Hurley MD [address] [place] [address] PCP - General Internal Medicine 10/17/22
--- OUTSIDE RECORDS SUMMARY | 2024-10-02 17:48 | XMS_ITS | Referral Summary ---
Author Organization [facility] Address [address] [place] [address] Care Team Providers Care Legislators Name Role Phone Raquel Hurley MD Primary [...] Plan of Treatment Not on file Insurance [facility] MEDICAID Care Teams Legislators Relationship Specialty Start Date End Date Raquel Hurley MD [address] [place] [address] PCP - General Internal Medicine 10/17/22
== END 2024-10-02 14:32 | disposition home or self-care (01) ==
LOC: HO.HOSX 14:31
DX: Z13.89 Encounter for screening for other disorder (principal)

== ENCOUNTER 2024-10-03 08:10 | Outpatient (AMB) | payer OTHER, SELFPAY ==
--- NOTE | 2024-10-03 08:19 | MHC.OFFVIS ---
Intake Visit Reasons: OV - Right radius head fx DOI 09/11/24 Intake Note: Haritha is a 59 year old right hand dominant female who presents today for a follow up of her Right Radial Head Fracture 09/11/24. At her last visit she was instructed to continue using the sling at all times other than for bathing and was given a 2lb weight restriction. She continues to wear the sling as directed, she has mild pain. Denies numbness and tingling. Allergies No Known Allergies [No Known Allergies*] Allergy (Verified 10/03/24 08:22) HPI HPI OV - Right radius head fx DOI 09/11/24: Details: Haritha is a 59 year old right hand dominant female who presents today for a follow up of her Right Radial Head Fracture 09/11/24. At her last visit she was instructed to continue using the sling at all times other than for bathing and was given a 2lb weight restriction. She continues to wear the sling as directed, she has mild pain. Denies numbness and tingling. [facility] Medical History Hx of fall Fracture of humerus, proximal, left, closed Intertrigo Tinea corporis Trigeminal neuralgia of left side of face ASCUS with positive high risk HPV Seasonal allergies Bipolar disorder Vitamin D deficiency Menopause Mild intermittent asthma GERD (gastroesophageal reflux disease) Psoriasis Impaired fasting glucose Mixed dyslipidemia Surgical History History of endometrial ablation Family History Father History of CVA (cerebrovascular accident) Lung cancer Depression Mother Diabetes mellitus Maternal Grandmother Diabetes mellitus Breast cancer Maternal Aunt Breast cancer Diabetes mellitus Maternal Uncle Colon cancer Brother No problems noted. Brother No problems noted. Sister No problems noted. Sister No problems noted. Son Mental health disorder Son No problems noted. 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 Sexual orientation: Straight/Heterosexual Gender identity: Female Cognitive needs: No Hearing needs: No Vision needs: Yes Review of Systems Const All systems reviewed & are unremarkable except as noted in HPI and below Physical Exam Extrem Other: Patient's right elbow normal to inspection No erythema, ecchymosis, edema noted No lacerations, abrasions, open areas No evidence of infection Patient reports no tenderness to palpation of the right radial head, olecranon process, or elsewhere on the right elbow Distal sensation intact Capillary refill brisk Results Reviewed Results Reviewed: X-rays obtained in the office today and independently reviewed by me, Misael Sanchez PA-C, demonstrate nondisplaced fracture of the right radial head. Assessment & Plan Assessment & Plan (1) Right radial head fracture: Code(s): S52.121A - Displaced fracture of head of right radius, initial encounter for closed fracture Category: Medical Qualifiers: Encounter type: initial encounter Fracture type: closed Fracture alignment: nondisplaced Qualified Code(s): S52.124A - Nondisplaced fracture of head of right radius, initial encounter for closed fracture Plan 1. Right radial head fracture Date of injury 09/11/2024 Patient is educated about this injury Patient is educated about the typical recovery course At this time, patient is given a new sling to wear with daytime activities for comfort, but that she can remove to work range of motion and while at rest Patient was educated she should continue working on range of motion of the right wrist and hand in order to prevent stiffness of the joints Patient was educated that that she has a strict 2 lb weight limit in the right hand Patient was amenable to this plan Patient will follow-up in 3-4 weeks with repeat x-rays for reassessment, sooner with any acute concerns Orders: Orders XR elbow RT min 3V Today M25.521 - Pain in right elbow Coding Level of Care Code Global (27576) Diagnoses Closed nondisplaced fracture of head of right radius, initial encounter S52.124A Encounter type: initial encounter Fracture type: closed Fracture alignment: nondisplaced
--- OUTSIDE RECORDS SUMMARY | 2024-10-03 08:21 | XMS_ITS | Clinical Summary ---
Author Organization [facility] Address [address] [place] [address] Care Team Providers Care Care Professionals Name Role Phone Raquel Hurley MD Primary [...] to complete this topic Insurance [place] [address] Care Teams Care Professionals Relationship Specialty Start Date End Date Raquel Hurley MD [address] [place] [address] PCP - General Internal Medicine 10/17/22
--- OUTSIDE RECORDS SUMMARY | 2024-10-03 08:22 | XMS_ITS | Referral Summary ---
Author Organization [facility] Address [address] [place] [address] Care Team Providers Care Title Specialist Name Role Phone Raquel Hurley MD Primary [...] Plan of Treatment Not on file Insurance [facility] MEDICAID Care Teams Title Specialist Relationship Specialty Start Date End Date Raquel Hurley MD [address] [place] [address] PCP - General Internal Medicine 10/17/22
== END 2024-10-03 08:45 | disposition home or self-care (01) ==
LOC: HO.HOS 08:11
PROVIDERS: PCP Internal Medicine
DX: S52.124A Nondisplaced fracture of head of right radius, initial encounter for closed fracture (principal)
CPT/HCPCS: 99213

== ENCOUNTER → 2024-10-03 08:13 | Outpatient (BNV) | payer OTHER, SELFPAY | PROVIDERS: Visit Provider Radiology Diagnostic Radiology | DX: S52.121A Displaced fracture of head of right radius, initial encounter for closed fracture (principal) | CPT/HCPCS: 73080 ==

== ENCOUNTER 2024-10-03 09:33 | Outpatient (REF) | payer OTHER, SELFPAY ==
--- NOTE | ~2024-10-03 | XR_ITS ---
EXAMINATION: XR ELBOW 3 VIEWS RIGHT HISTORY: M25.521 - Pain in right elbow COMPARISON: Comparison is made with the prior examination dated 09/21/2024. FINDINGS: Four views of the right elbow are submitted. Osseous mineralization is normal. The previously seen intra-articular fracture of the radial head is better visualized on today's examination. The joint spaces are preserved. The soft tissues are unremarkable. There is no joint effusion. XR/XR elbow RT min 3V IMPRESSION: Intra-articular fracture of the radial head. The fracture line remains visible. Electronically signed by: Brett Montesinos MD 10/03/2024 08:33 AM EDT
--- OUTSIDE RECORDS SUMMARY | 2024-10-04 11:23 | XMS_ITS | Clinical Summary ---
Author Organization [facility] Address [address] [place] [address] Care Team Providers Care Print Producer Name Role Phone Raquel Hurley MD Primary [...] to complete this topic Insurance [place] [address] Care Teams Print Producer Relationship Specialty Start Date End Date Raquel Hurley MD [address] [place] [address] PCP - General Internal Medicine 10/17/22
--- OUTSIDE RECORDS SUMMARY | 2024-10-04 11:23 | XMS_ITS | Referral Summary ---
Author Organization [facility] Address [address] [place] [address] Care Team Providers Care Automobile Upholsterer Apprentice Name Role Phone Raquel Hurley MD Primary [...] Plan of Treatment Not on file Insurance [facility] MEDICAID Care Teams Automobile Upholsterer Apprentice Relationship Specialty Start Date End Date Raquel Hurley MD [address] [place] [id number] PCP - General Internal Medicine 10/17/22
== END 2024-10-03 09:34 | disposition home or self-care (01) ==
LOC: HO.HOSX 09:33
DX: M25.521 Pain in right elbow (principal); S52.124A Nondisplaced fracture of head of right radius, initial encounter for closed fracture
CPT/HCPCS: 73080; 99212

== ENCOUNTER 2024-10-31 08:10 | Outpatient (AMB) | payer OTHER, SELFPAY ==
--- OUTSIDE RECORDS SUMMARY | 2024-10-31 08:17 | XMS_ITS | Referral Summary ---
Author Organization [facility] Address [address] [place] [address] Care Team Providers Care First Responder Name Role Phone Raquel Hurley MD Primary [...] Plan of Treatment Not on file Insurance [facility] MEDICAID Care Teams First Responder Relationship Specialty Start Date End Date Raquel Hurley MD [address] [place] [id number] PCP - General Internal Medicine 10/17/22
--- OUTSIDE RECORDS SUMMARY | 2024-10-31 08:17 | XMS_ITS | Clinical Summary ---
Author Organization [facility] Address [address] [place] [address] Care Team Providers Care Support Services Rep Name Role Phone Raquel Hurley MD Primary [...] Vaccine ( - season) 2024 08/05/2021, 11/29/2020 Alcohol/Substance Use Screening 07/25/2024 Depression Screening and Follow-Up 07/25/2024 Social Drivers of Health Annual Screening 07/25/2024 Influenza Vaccine (Season Ended) 2025 04/15/2022, 05/27/2021, 04/25/2019, Additional history exists DTaP,Tdap,and Td Vaccines (2 - Td or Tdap) 12/29/2027 12/28/2017 RSV Vaccine (60+ years old and patients) (1 - 1-dose 75+ series) 2039 Zoster Vaccines Completed 01/07/2021, 09/04/2020 Hepatitis B Vaccines Aged Out No long er eligible based on patient's age to complete this topic Insurance [employer] Care Teams Support Services Rep Relationship Specialty Start Date End Date Raquel Hurley MD [address] [place] [address] PCP - General Internal Medicine 10/17/22
--- NOTE | 2024-10-31 08:19 | MHC.OFFVIS ---
Intake Visit Reasons: OV - Right radius head fx DOI 09/11/24 Intake Note: Haritha is a 59 year old right hand dominant female who presents today for a follow up of her closed nondisplaced fracture of head of right radius, DOI: 09/11/24. Patient reports she has continued working on gentle ROM exercises of the right wrist and hand. Patient reports that she has had decreased ROM, she reports that she has been lifting heaver that 1 lb by accident So she is worries that she has reinjured it. Allergies No Known Allergies [No Known Allergies*] Allergy (Verified 10/03/24 08:22) HPI HPI OV - Right radius head fx DOI 09/11/24: Details: Haritha is a 59 year old right hand dominant female who presents today for a follow up of her closed nondisplaced fracture of head of right radius, DOI: 09/11/24. Patient reports she has continued working on gentle ROM exercises of the right wrist and hand. Patient reports that she has had decreased ROM, she reports that she has been lifting heaver that 1 lb by accident So she is worries that she has reinjured it. [facility] Medical History Hx of fall Fracture of humerus, proximal, left, closed Intertrigo Tinea corporis Trigeminal neuralgia of left side of face ASCUS with positive high risk HPV Seasonal allergies Bipolar disorder Vitamin D deficiency Menopause Mild intermittent asthma GERD (gastroesophageal reflux disease) Psoriasis Impaired fasting glucose Mixed dyslipidemia Surgical History History of endometrial ablation Family History Father History of CVA (cerebrovascular accident) Lung cancer Depression Mother Diabetes mellitus Maternal Grandmother Diabetes mellitus Breast cancer Maternal Aunt Breast cancer Diabetes mellitus Maternal Uncle Colon cancer Brother No problems noted. Brother No problems noted. Sister No problems noted. Sister No problems noted. Son Mental health disorder Son No problems noted. 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 [employer] Sexual orientation: Straight/Heterosexual Gender identity: Female Cognitive needs: No Hearing needs: No Vision needs: Yes Review of Systems Const All systems reviewed & are unremarkable except as noted in HPI and below Physical Exam Extrem Other: Patient's right elbow normal to inspection No erythema, ecchymosis, edema noted No lacerations, abrasions, open areas No evidence of infection Patient reports minimal tenderness to palpation of the right radial head, olecranon process, or elsewhere on the right elbow Distal sensation intact Capillary refill brisk Results Reviewed Results Reviewed: X-rays obtained in the office today and independently reviewed by me, Misael Sancehz PA-C, demonstrate nondisplaced fracture of the right radial head with evidence of early interval bony healing. Assessment & Plan Assessment & Plan (1) Right radial head fracture: Code(s): S52.121A - Displaced fracture of head of right radius, initial encounter for closed fracture Category: Medical Qualifiers: Encounter type: initial encounter Fracture type: closed Fracture alignment: nondisplaced Qualified Code(s): S52.124A - Nondisplaced fracture of head of right radius, initial encounter for closed fracture Plan 1. Right radial head fracture Date of injury 09/11/2024 Patient is educated about this injury Patient is educated about the typical recovery course At this time, patient is advised that she should be not wearing the sling much at all anymore, and should be working gentle active range of motion of the right elbow Patient was educated she should continue working on range of motion of the right wrist and hand in order to prevent stiffness of the joints Patient was educated that that she has a strict 2 lb weight limit in the right hand Patient was amenable to this plan Patient will follow-up in 3-4 weeks with repeat x-rays for reassessment, sooner with any acute concerns Orders: Orders XR elbow RT min 3V Today M25.521 - Pain in right elbow Coding Level of Care Code Global (20054) Diagnoses Closed nondisplaced fracture of head of right radius, initial encounter S52.124A Encounter type: initial encounter Fracture type: closed Fracture alignment: nondisplaced
== END 2024-10-31 08:41 | disposition home or self-care (01) ==
LOC: HO.HOS 08:11
DX: S52.124A Nondisplaced fracture of head of right radius, initial encounter for closed fracture (principal)
CPT/HCPCS: 99213

== ENCOUNTER 2024-10-31 08:10 | Outpatient (REF) | payer OTHER, SELFPAY ==
--- NOTE | ~2024-10-31 | XR_ITS ---
EXAMINATION: XR ELBOW, RIGHT CLINICAL INFORMATION: M25.521 - Pain in right elbow COMPARISON: October 03, 2024 TECHNIQUE: AP, lateral, and oblique views of the right elbow. FINDINGS: There is a 1 mm depressed comminuted intra-articular fracture involving the radial aspect of the radial head. No callus formation. There is small joint effusion. The distal humerus and proximal ulna are intact. XR/XR elbow RT min 3V IMPRESSION: Kane classification type II, intra-articular comminuted radial head fracture Electronically signed by: John Garza MD 10/31/2024 08:37 AM EDT
== END 2024-10-31 08:11 | disposition home or self-care (01) ==
LOC: HO.HOSX 08:10
DX: M25.521 Pain in right elbow (principal)
CPT/HCPCS: 73080; 99212

== ENCOUNTER → 2024-10-31 08:22 | Outpatient (BNV) | payer OTHER, SELFPAY | PROVIDERS: Visit Provider Radiology Diagnostic Radiology | DX: S52.121A Displaced fracture of head of right radius, initial encounter for closed fracture (principal) | CPT/HCPCS: 73080 ==

== ENCOUNTER 2024-11-19 07:07 | Outpatient (REF) | payer OTHER, SELFPAY ==
--- OUTSIDE RECORDS SUMMARY | 2024-11-19 07:09 | XMS_ITS | Referral Summary ---
Author Organization [facility] Address [address] [place] [address] Care Team Providers Care Nanofabrication Specialist Name Role Phone Raquel Hurley MD [...] on file Insurance [facility] MEDICAID Care Teams Nanofabrication Specialist Relationship Specialty Start Date End Date Raquel Hurley MD [address] [place] [id number] PCP - General Internal Medicine 10/17/22
[2024-11-19 10:30] LABS: Alanine Aminotransferase 11 U/L (0-31); Alkaline Phosphatase 45 U/L (39-117); Anion Gap 12 (12-20); Aspartate Amino Transferase 18 U/L (5-31); Bilirubin Total 0.2 mg/dL (0.0-1.0); Blood Urea Nitrogen 11 mg/dL (9-16); Calcium 9.1 mg/dL (8.4-10.2); Carbon Dioxide 28 mmol/L (22-29); Chloride 105 mmol/L (96-108); Cholesterol 169 mg/dL (<200); Estimated Glomerular Filt Rate > 60; Glucose Fasting 115 mg/dL (60-99); HDL Cholesterol 45 mg/dL (>40); LDL Cholesterol Calculated 81 mg/dL (<100); Potassium 4.1 mmol/L (3.3-5.1); Sodium 141 mmol/L (135-145); Total Protein 7.2 g/dL (6.5-8.0); Triglycerides 215 mg/dL (<150)
[2024-11-19 10:46] LABS: Estimated Average Glucose 120 mg/dL; Hemoglobin A1C 139.2802 umol/L; Hemoglobin A1c % 5.8 % (<6.0); Total Hemoglobin (HGBA1C) 3483.9288 umol/L
[2024-11-19 10:50] LABS: TSH reflex Free T4 3.85 uIU/mL (0.32-4.0); Vitamin D 25-OH Total 37.5 ng/mL (>30)
== END 2024-11-19 07:08 | disposition home or self-care (01) ==
LOC: HO.HMGCLDS 07:07
PROVIDERS: PCP Internal Medicine; Visit Provider Internal Medicine
DX: Z78.0 Asymptomatic menopausal state (principal); F31.30 Bipolar disorder, current episode depressed, mild or moderate severity, unspecified; Z51.81 Encounter for therapeutic drug level monitoring; Z79.899 Other long term (current) drug therapy; R73.01 Impaired fasting glucose; E78.2 Mixed hyperlipidemia
CPT/HCPCS: 36415; 80053; 80061; 82306; 83036; 84443

== ENCOUNTER 2024-11-26 07:59 | Outpatient (AMB) | payer OTHER, SELFPAY ==
--- OUTSIDE RECORDS SUMMARY | 2024-11-26 08:05 | XMS_ITS | Clinical Summary ---
Author Organization [facility] Address [address] [place] [address] Care Team Providers Care Coal Weigher Name Role Phone Raquel Hurley MD Primary [...] to complete this topic Insurance [employer] [address] Care Teams Coal Weigher Relationship Specialty Start Date End Date Raquel Hurley MD [address] [place] [address] PCP - General Internal Medicine 10/17/22
--- OUTSIDE RECORDS SUMMARY | 2024-11-26 08:05 | XMS_ITS | Referral Summary ---
Author Organization [facility] Address [address] [place] [address] Care Team Providers Care Overcoiler Name Role Phone Raquel Hurley MD Primary [...] Plan of Treatment Not on file Insurance [facility] MEDICAID Care Teams Overcoiler Relationship Specialty Start Date End Date Raquel Hurley MD [address] [place] [id number] PCP - General Internal Medicine 10/17/22
--- NOTE | 2024-11-26 08:23 | MHC.PC.OV ---
Vital Signs 11/26/24 08:24 Height 5 ft 2 in Weight 251 lb BMI 45.9 BP 130/80 Blood Pressure Location Lt brachial Position Sitting Respiration 15 Pulse 70 Pulse Source Pulse Oximeter Temp 97.7 F Temp Source Oral Pulse Oximetry (%) 97 Oxygen Delivery Method Room Air Intake Visit Reasons: 6 month f/u Intake Note: Pt is here today for her 6mo. Allergies No Known Allergies [No Known Allergies*] Allergy (Verified 11/26/24 08:38) Medication List - Last Reconciled 11/26/24 by Raquel Hurley MD acetaminophen mg PO albuterol sulfate 90 mcg/actuation 2 inhalations inhalation Q6H PRN atorvastatin 20 mg PO DAILY bupropion HCl XL 300 mg PO QAM carbamazepine 200 mg PO BID cetirizine 10 mg PO BEDTIME clobetasol 0.05% 1 appl topical BID 2 weeks diclofenac sodium 1% (Arthritis Pain (diclofenac)) 2 grams topical QID PRN fluticasone propionate 50 mcg/actuation 1 spray intranasal DAILY gabapentin 300 mg PO TID ibuprofen 600 mg PO Q6H PRN lithium carbonate ER 0 mg PO naproxen (Naprosyn) 500 mg PO BID omega-3 fatty acids-fish oil 300-1,000 mg 1 cap PO BID omeprazole 20 mg PO DAILY Tobacco use date assessed: 11/26/24 Dental Screening Dental Screen Date: 11/26/24 Did you have a dental visit in the last 12 months?: No Did you have a dental problem in the last 6 months where you did not have access to dental care?: No Was dental information given to patient?: No HPI 6 month f/u HPI Details 59 year-old lady with hyperlipidemia, mild intermittent asthma, chronic GERD, psoriasis, impaired fasting glucose, trigeminal neuralgia, history of left humeral fracture 09/2022 and bipolar disorder, here today for follow-up. She has been compliant with taking her medications, has been following recommended diet, but admits to not walking as much as she was in the summertime. She has been feeling well, needs refills on her medications especially the clobetasol which she applies to her elbows as needed for recurrent psoriatic rash Has been having intermittent episodes of swelling in both ankles towards the end of the day, usually gets better when she elevates her legs. Denies any calf tenderness [facility] Medical History Hx of fall Fracture of humerus, proximal, left, closed Intertrigo Tinea corporis Trigeminal neuralgia of left side of face ASCUS with positive high risk HPV Seasonal allergies Bipolar disorder Vitamin D deficiency Menopause Mild intermittent asthma GERD (gastroesophageal reflux disease) Psoriasis Impaired fasting glucose Mixed dyslipidemia Surgical History History of endometrial ablation Family History Father History of CVA (cerebrovascular accident) Lung cancer Depression Mother Diabetes mellitus Maternal Grandmother Diabetes mellitus Breast cancer Maternal Aunt Breast cancer Diabetes mellitus Maternal Uncle Colon cancer Brother No problems noted. Brother No problems noted. Sister No problems noted. Sister No problems noted. Son Mental health disorder Son No problems noted. 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 1. Little interest or pleasure in doing things: not at all 2. Feeling down, depressed, or hopeless: not at all 3. Trouble falling or staying asleep, or sleeping too much: not at all 4. Feeling tired or having little energy: not at all 5. Poor appetite or overeating: not at all 6. Feeling bad about yourself - or that you are a failure or have let yourself or your family down: not at all 7. Trouble concentrating on things, such as reading the newspaper or watching television: not at all 8. Moving or speaking so slowly that other people could have noticed. Or the opposite - being so fidgety or restless that you have been moving around a lot more than usual: not at all 9. Thoughts that you would be better off or of hurting yourself in some way: not at all Total score: 0 Depression Screening Interpretation: Negative Depression Screening Done: Yes 28927 - PHQ-9 Billing: Yes Source: Developed by Drs. Brett Espinoza, Allison Rutledge, Yanick Mac and colleagues, with an educational aleksey from [employer]. Thrive Questionnaire Date Thrive assessed: 11/19/24 I am a: Patient What is your living situation today?: I have a steady place to live Within the past 12 months, did the food you bought not last and you didn't have the money to get more?: Never true Within the past 12 months, did you worry whether your food would run out before you got money to buy more?: Sometimes True Do you have trouble paying for medicines?: No Do you have trouble getting transportation to medical appointments?: No Do you have trouble paying your heating and electricity bill?: No Do you have trouble taking care of your child, family member or friend?: No Do you have trouble with day-to-day activities such as bathing, preparing meals, shopping, managing finances, etc.?: No Are you currently unemployed and looking for a job?: Yes Are you interested in more education?: No Please select the resources that you would like help with: None Currently or been in a relationship where the following occur: No concerns reported THRIVE Score: 1 AUDIT C Alcohol Use Questionnaire (AUDIT-C) 1. How often do you have a drink containing alcohol?: Never Total Score: 0 SAM-7 AMB Questionnaire SAM-7 Date SAM - 7 assessed: 11/26/24 Feeling nervous, anxious, or on edge: 0 = Not at all Not being able to stop or control worryin = Not at all Worrying too much about different things: 0 = Not at all Trouble relaxin = Not at all Being so restless that it is hard to sit still: 0 = Not at all Becoming easily annoyed or irritable: 0 = Not at all Feeling afraid as if something awful might happen: 0 = Not at all Total SAM-7 score (0-4 normal; 5-9 mild; 10-14 moderate; 15-21 severe): 0 Source: Developed by Allison Grady Kurt Kroenke and colleagues, with an educational aleksey from [employer]. SAM-7 Assessment Billing SAM-7 Assessment Tool: SAM-7 Assessment 93672 Review of Systems Const Denies body aches, Denies fever(s), Denies headache(s) and Denies weakness Eyes Details: [facility]es [facility] Denies dizziness, Denies headache(s) and Denies nasal congestion Card Denies chest pain, Denies lightheadedness and Denies dyspnea Resp Denies chest congestion, Denies cough and Denies dyspnea GI Denies abdominal pain, Denies change in bowel habits and Denies heartburn Reports no additional complaints Musc Reports no additional complaints Skin/Breast Denies breast pain and Denies breast mass Neuro Denies dizziness, Denies headache(s) and Denies weakness Psych Reports no additional complaints Endo Reports no additional complaints Wagner/Lymph Denies easy bleeding and Denies easy bruising Aller/Immun Reports no additional complaints Physical exam (Primary Care) Vital Signs: Last Vital Signs Temp 97.7 F 11/26/24 08:24 Pulse 70 11/26/24 08:24 Resp 15 11/26/24 08:24 BP 130/80 11/26/24 08:24 Pulse Ox 97 11/26/24 08:24 Oxygen Delivery Method Room Air 11/26/24 08:24 BMI result Body Mass Index 45.9 Tobacco/Smoking Status: Tobacco use Status Tobacco use date assessed 11/26/24 11/26/24 08:35 Patient Tobacco Use Status Former Tobacco user 11/26/24 08:35 e-Cigarette/Vaping Use Never Used 11/26/24 08:35 PHQ-9: PHQ-9 Score PHQ-9: Total score 0 11/26/24 08:35 Depression Screening Interpretation: Negative Thrive Assessment: Date of Thrive Assessment Date Thrive assessed 11/19/24 11/26/24 08:35 Currently or been in a relationship where the following occur: No concerns reported Const General: comfortable and no acute distress Nutritional Appearance: obese Orientation/consciousness: patient oriented x3 HENMT Head: Yes normocephalic Ears: external ears normal General nose exam: Normal external nose present Mouth: moist mucous membranes Eyes Pupils: Equal, round and reactive pupils present EOM: EOMs intact bilaterally Neck Neck: Yes full ROM and Yes no lymphadenopathy Thyroid: Thyroid normal Resp Effort & Inspection: normal respiratory effort and able to speak in complete sentences Auscultation: clear to auscultation bilaterally, no crackles, no rales, no rhonchi and no wheezes Cardio Heart sounds: S1 normal heart sound present and S2 normal heart sound present GI Inspection: Yes Abdominal panniculus present and Yes obesity Palpation (GI): Soft to palpation, nontender and no guarding Auscultation: normal bowel sounds General: Yes no CVA tenderness Back/Spine/Pelvis Back: no CVA tenderness and back tenderness Skin General skin exam: crusts, dry skin and erythema Lesions: lesion noted (B/L behind elbows - psoriatic lesions) Neuro General: patient oriented x3, gait normal and moves all extremities Cranial nerves: Yes Equal, round and reactive pupils present and Yes Bilaterally intact EOM present Motor exam (neuro): 5/5 motor strength present throughout Extrem General: Yes full ROM Psych Speech and movement: Normal speech and movement present Results Reviewed Results Reviewed: Laboratory Tests 10/25/23 11/19/24 08:20 07:12 Estimat Average Glucose 120 Hemoglobin A1c % 5.8 Microalb/Creat Ratio 6.3 Name: Haritha Gallegos Age/Sex: 59/F : 1965 Unit#: [id number] Attend Dr: Raquel Hurley MD Re11/19/24 Status: DEP REF Location: [facility] Disch: SPEC : [id number] DIONE: 11/19/24 STATUS: COMP REQ : [id number] RECD: 11/19/[address]: Raquel Hurley MD COMP: 11/19/240 ENTERED: 11/19/[address]: ORDERED: CMP Fast, Lipid Panel, Vitamin D 25-OH, TSH Rflx Test Result Flag Reference Sodium 141 135-145 mmol/L Potassium 4.1 3.3-5.1 mmol/L CL 105 96-108 mmol/L CO2 28 22-29 mmol/L Gap 12 12-20 BUN 11 9-16 mg/dL Creat 0.74 0.5-1.4 mg/dL eGFR > 60 Chronic Kidney Disease: Estimated GFR < 60 mL/min/1.73m2 Severe Kidney Disease: Estimated GFR < 15 mL/min/1.73m2 FBS 115 H 60-99 mg/dL A fasting glucose from 100-125 mg/dl is considered impaired (pre-diabetes). CA 9.1 8.4-10.2 mg/dL Total Bili 0.2 0.0-1.0 mg/dL AST (GOT) 18 5-31 U/L ALT (GPT) 11 0-31 U/L Protein, Total 7.2 6.5-8.0 g/dL Alb 4.0 3.5-5.0 g/dL Triglyceride 215 H <150 mg/dL Desirable Triglyceride: less than 150 mg/dL Borderline High Triglyceride 150-199 mg/dL High Triglyceride: 200-499 mg/dL Very High Triglyceride: greater than or equal to 5OO mg/dL Cholesterol 169 <200 mg/dL Desirable Cholesterol: less than 200 mg/dL Borderline High Cholesterol: 200-239 mg/dL High Cholesterol: greater than 239 mg/dL LDL Calculated 81 <100 mg/dL Desirable LDL: less than 100 mg/dL Near Optimal/Above Optimal LDL: 110-129 mg/dL Borderline High LDL: 130-159 mg/dL High LDL: 160-189 mg/dL Very High LDL: greater than or equal to 190 mg/dL HDL 45 >40 mg/dL Desirable HDL: greater than 40 mg/dL Note: This HDL assay may give artificially low results in patients with liver disease. Alk Phos 45 39-117 U/L Vitamin D 25-OH 37.5 >30 ng/mL Health Based Reference Values* < 20 ng/mL Deficient 20-30 ng/mL Insufficient > 30 ng/mL Sufficient *Rigoberto MARQUEZ. N Engl J Med. 2007;357:266-280 There is no well-established upper level of normal vitamin D levels. Some laboratories use 50 ng/mL as an upper limit of normal. However, toxicity is patient-dependent and may occur at any level. Careful correlation with the patient's presentation is necessary and, if there is concern for vitamin D toxicity, treatment should be considered irrespective of the serum level. Care must be taken in interpreting Vitamin D results from different laboratories and methodologies. Published data demonstrated that results from patients undergoing hemodialysis may show a negative bias when tested with various automated 25-OH vitamin D assays when compared to LC-MS/MS. When testing samples from patients whose predominant form of Vitamin D is Vitamin D2, such as patients receiving Vitamin D2 supplementation, results that are subtherapeutic should be confirmed with another method such as LC-MS/MS. TSH 3.85 0.32-4.0 uIU/mL Coding Level of Care Code Est Pt Level 4 (68072) Complex EM visit Add On G2211 Diagnoses Mixed dyslipidemia E78.2 Impaired fasting glucose R73.01 Psoriasis L40.9 Gastroesophageal reflux disease without esophagitis K21.9 Esophagitis presence: without esophagitis Seasonal allergies J30.2 Pedal edema R60.0 Additional Codes PHQ-9 - 27734 - PHQ-9 Billing: Yes ([id number]) SAM-7 Assessment Billing - SAM-7 Assessment Tool: SAM-7 Assessment 52501 ([id number]) Assessment & Plan Assessment & Plan (1) Mixed dyslipidemia: Code(s): E78.2 - Mixed hyperlipidemia Category: Medical Plan: Reviewed recent fasting lipid profile with patient with normal LDL cholesterol but elevated triglycerides, lower than last check however levels . Continue atorvastatin 20 mg daily and takes fish oil supplements once a day. , continue adherence to low-cholesterol diet and regular exercise, at least 30 minutes 3 to 4 times a week. Advised patient to make healthy food choices, eat more fruits, vegetables, whole grains, wild caught fish and low-fat dairy. Limit amount of meat and fried or fatty food products, as well as processed foods and fast foods. Follow-up scheduled with repeat fasting lipid panel in months. (2) Impaired fasting glucose: Code(s): R73.01 - Impaired fasting glucose Category: Medical Plan: Your previous fasting blood sugars were elevated above 100 mg/dL. Impaired glucose metabolism increases the risk for developing diabetes mellitus type 2, as well as heart attack and stroke later on. Lifestyle changes that promotes weight loss, healthy eating habits, and regular exercise are important, and can prevent the progression to diabetes (3) Psoriasis: Code(s): L40.9 - Psoriasis, unspecified Category: Medical Plan: Refill sent for clobetasol 0.05 %, apply sparingly to affected area twice a day for no more than 10 days at a time (4) GERD (gastroesophageal reflux disease): Code(s): K21.9 - Gastro-esophageal reflux disease without esophagitis Category: Medical Qualifiers: Esophagitis presence: without esophagitis Qualified Code(s): K21.9 - Gastro-esophageal reflux disease without esophagitis Plan: Takes omeprazole 20 mg daily as needed, avoid taking NSAIDs (5) Seasonal allergies: Code(s): J30.2 - Other seasonal allergic rhinitis Category: Medical Plan: Refill sent for cetirizine 10 mg 1 tablet at bedtime (6) Pedal edema: Code(s): R60.0 - Localized edema Category: Medical Plan: Advised to elevate legs as much as possible cup cut back on salt intake, and prescription sent for travel compression socks to wear as directed Orders: Orders Hemoglobin A1c 05/25/25 E78.2 - Mixed hyperlipidemia, J30.2 - Other seasonal allergic rhinitis, K21.9 - Gastro-esophageal reflux disease without esophagitis, L40.9 - Psoriasis, unspecified, R60.0 - Localized edema, R73.01 - Impaired fasting glucose Alanine Aminotransferase 05/25/25 E78.2 - Mixed hyperlipidemia, J30.2 - Other seasonal allergic rhinitis, K21.9 - Gastro-esophageal reflux disease without esophagitis, L40.9 - Psoriasis, unspecified, R60.0 - Localized edema, R73.01 - Impaired fasting glucose Aspartate Amino Transferase 05/25/25 E78.2 - Mixed hyperlipidemia, J30.2 - Other seasonal allergic rhinitis, K21.9 - Gastro-esophageal reflux disease without esophagitis, L40.9 - Psoriasis, unspecified, R60.0 - Localized edema, R73.01 - Impaired fasting glucose Basic Metabolic Panel Fasting 05/25/25 E78.2 - Mixed hyperlipidemia, J30.2 - Other seasonal allergic rhinitis, K21.9 - Gastro-esophageal reflux disease without esophagitis, L40.9 - Psoriasis, unspecified, R60.0 - Localized edema, R73.01 - Impaired fasting glucose Lipid Panel 05/25/25 E78.2 - Mixed hyperlipidemia, J30.2 - Other seasonal allergic rhinitis, K21.9 - Gastro-esophageal reflux disease without esophagitis, L40.9 - Psoriasis, unspecified, R60.0 - Localized edema, R73.01 - Impaired fasting glucose Microalbumin, Random (w Creat) 05/25/25 E78.2 - Mixed hyperlipidemia, J30.2 - Other seasonal allergic rhinitis, K21.9 - Gastro-esophageal reflux disease without esophagitis, L40.9 - Psoriasis, unspecified, R60.0 - Localized edema, R73.01 - Impaired fasting glucose Vitamin D 25-OH Total 05/25/25 E78.2 - Mixed hyperlipidemia, J30.2 - Other seasonal allergic rhinitis, K21.9 - Gastro-esophageal reflux disease without esophagitis, L40.9 - Psoriasis, unspecified, R60.0 - Localized edema, R73.01 - Impaired fasting glucose Medications: New [travel compression socks] Wear 1st thing in the morning and remove at night 1 ea 0RF bipedal edema R60.0 - Localized edema Refilled clobetasol 0.05% APPLY A THIN LAYER TO THE AFFECTED SKIN FOR 2 WEEKS ON. PAUSE FOR 1 WEEK, THEN CONTINUE FOR THE NEXT 2 WEEKS. 1 appl topical BID 2 weeks 30 grams 2RF L40.9 - Psoriasis, unspecified atorvastatin 20 mg PO DAILY 90 tabs 1RF cetirizine 10 mg PO BEDTIME 90 tabs 1RF omeprazole 20 mg PO DAILY 90 caps 1RF
[2024-11-26 08:24] VITALS: BP 130/80; PULSE 70; RESP 15; TEMP 36.5; O2SAT 97; BMI 45.9
== END 2024-11-26 08:57 | disposition home or self-care (01) ==
LOC: HO.HMCC 08:00
PROVIDERS: PCP Internal Medicine; Visit Provider Internal Medicine
DX: E78.2 Mixed hyperlipidemia (principal); R73.01 Impaired fasting glucose; L40.9 Psoriasis, unspecified; K21.9 Gastro-esophageal reflux disease without esophagitis; J30.2 Other seasonal allergic rhinitis; R60.0 Localized edema

== ENCOUNTER → 2024-11-26 07:59 | Outpatient (BNVA) | payer OTHER, SELFPAY | PROVIDERS: PCP Internal Medicine; Visit Provider Internal Medicine | DX: E78.2 Mixed hyperlipidemia (principal); R73.01 Impaired fasting glucose; L40.9 Psoriasis, unspecified; K21.9 Gastro-esophageal reflux disease without esophagitis; J30.2 Other seasonal allergic rhinitis; R60.0 Localized edema; Z79.899 Other long term (current) drug therapy | CPT/HCPCS: 96127; 99212 ==

== ENCOUNTER 2024-12-07 08:01 | Outpatient (AMB) | payer OTHER, SELFPAY ==
--- OUTSIDE RECORDS SUMMARY | 2024-12-07 08:04 | XMS_ITS | Clinical Summary ---
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
--- OUTSIDE RECORDS SUMMARY | 2024-12-07 08:04 | XMS_ITS | Referral Summary ---
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
[2024-12-07 08:24] VITALS: BMI 45.9
--- NOTE | 2024-12-07 08:24 | MHC.OFFVIS ---
Vital Signs 12/07/24 08:24 Height 5 ft 2 in Weight 251 lb BMI 45.9 Intake Visit Reasons: OV - Right Radial Head fx DOI 09/11/24 Intake Note: Haritha is a 59 year old right hand dominant female who presents today for a follow up about 3 months s/p Right Radial Head Fracture 09/11/2024. At her last visit she was instructed to discontinue the use of her sling and work on gentle active ROM of the elbow. She was given a 2lb weight limit of the right arm. Currently states she is improving her ROM, pain if she bangs elbow on a surface and depending on the weather but is doing well over all. Allergies No Known Allergies [No Known Allergies*] Allergy (Verified 12/07/24 08:26) [facility] Medical History (Updated 12/07/24 @ 09:13 by CHAD Choe) Pedal edema Hx of fall Fracture of humerus, proximal, left, closed Intertrigo Tinea corporis Trigeminal neuralgia of left side of face ASCUS with positive high risk HPV Seasonal allergies Bipolar disorder Vitamin D deficiency Menopause Mild intermittent asthma GERD (gastroesophageal reflux disease) Psoriasis Impaired fasting glucose Mixed dyslipidemia Surgical History History of endometrial ablation Family History Father History of CVA (cerebrovascular accident) Lung cancer Depression Mother Diabetes mellitus Maternal Grandmother Diabetes mellitus Breast cancer Maternal Aunt Breast cancer Diabetes mellitus Maternal Uncle Colon cancer Brother No problems noted. Brother No problems noted. Sister No problems noted. Sister No problems noted. Son Mental health disorder Son No problems noted. 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 [employer] Sexual orientation: Straight/Heterosexual Gender identity: Female Cognitive needs: No Hearing needs: No Vision needs: Yes Physical Exam Vital Signs: BMI result Body Mass Index 45.9 Assessment & Plan Assessment & Plan (1) Right radial head fracture: Code(s): S52.121A - Displaced fracture of head of right radius, initial encounter for closed fracture Category: Medical Qualifiers: Encounter type: initial encounter Fracture type: closed Fracture alignment: nondisplaced Qualified Code(s): S52.124A - Nondisplaced fracture of head of right radius, initial encounter for closed fracture Plan History of Present Illness The patient is a 59-year-old female presenting with a follow-up for a right radial head fracture. She reported sustaining the injury from a backward fall on ice during winter, leading to discomfort and restricted movement particular to that region. Initially, she experienced difficulties with full extension and lifting weights but managed to engage in some self-directed rehabilitation efforts without formal occupational therapy. Despite occasional minor discomfort upon incidental contact, she reports notable improvement in her arm's function and mobility. A recent x-ray indicates ongoing healing, with the fracture slowly resolving. The treatment approach so far has involved careful monitoring of symptoms and gradual reintegration into normal activity, with specific attention given to her range of motion and weightlifting capabilities. Review of Systems - Musculoskeletal: Reports occasional minor discomfort at the elbow upon impact. Systems reviewed and are negative except as per HPI and below Physical Exam Right elbow Examination Right elbow normal to inspection No erythema, edema, ecchymosis noted No lacerations, abrasions, open areas No evidence of infection No tenderness to palpation of the R radial head Patient is able to flex the R elbow to approximately 130 degrees without difficulty Patient is able to extend the R elbow to approximately 10 degrees Pronation and supination full and intact at 90 degrees Distal sensation intact Capillary refill brisk Results - Tests and Diagnostics: Recent x-ray of the right elbow indicates progressive healing with visible filling of the fracture line. Procedure Plan The patient's ongoing recovery from the right radial head fracture includes a strategy to gradually increase the range of motion and weight-bearing activities. Lifting is recommended to increase up to 15 pounds over the next four weeks to aid in both healing and strengthening efforts. No new imaging studies are planned at this time, with the next routine follow-up scheduled in four to six weeks, unless any pain or complications arise sooner. Regular checks on symptom progression are essential to adjust the treatment protocol as required. Patient was informed and verbally consented to the use of an ambient scribe for clinic note documentation during this visit. Discussion Notes During the consultation, we reviewed the patient's recent x-ray imaging, which showed a positive progression with the fracture line beginning to fill in. The management plan outlined gradual advancement of her exercises with an increase in weight limits to 15 pounds encouraged over four weeks. This incremental approach aims to restore function and strength while minimizing re-injury risk. I emphasized the importance of monitoring for any exacerbation of symptoms and the option to cancel the follow-up appointment if recovery continues without pain or complications. The potential need for further imaging was discussed as a contingency, rather than a requirement, should symptoms worsen. Patient Instructions - Gently increase exercise range of motion. - Gradually increase lifting weight to 15 pounds over the next four weeks. - Monitor for any return of pain or discomfort. - Attend follow-up appointment in four to six weeks. - Contact if experiencing any pain or issues. Orders: Orders XR elbow RT min 3V Today M25.521 - Pain in right elbow Coding Level of Care Code Global (98252) Diagnoses Closed nondisplaced fracture of head of right radius, initial encounter S52.124A Encounter type: initial encounter Fracture type: closed Fracture alignment: nondisplaced
== END 2024-12-07 08:41 | disposition home or self-care (01) ==
LOC: HO.HOS 08:02
DX: S52.124A Nondisplaced fracture of head of right radius, initial encounter for closed fracture (principal)
CPT/HCPCS: 99213

== ENCOUNTER 2024-12-07 08:01 | Outpatient (REF) | payer OTHER, SELFPAY ==
--- NOTE | ~2024-12-07 | XR_ITS ---
CLINICAL HISTORY: M25.521 - Pain in right elbow 3 view right elbow Comparison: None Findings: No acute fractures. Normal alignment. Mild degenerative changes. No joint effusion. No radiopaque foreign body. IMPRESSION: 1. No acute findings 2. Mild degenerative changes. This document has been electronically signed by: Cheikh Gil MD on 12/08/2024 07:57:11
== END 2024-12-07 08:02 | disposition home or self-care (01) ==
LOC: HO.HOSX 08:01
DX: M25.521 Pain in right elbow (principal); S52.124D Nondisplaced fracture of head of right radius, subsequent encounter for closed fracture with routine healing
CPT/HCPCS: 73080; 99212

== ENCOUNTER → 2024-12-07 08:18 | Outpatient (BNV) | payer OTHER, SELFPAY | PROVIDERS: Visit Provider Radiology Vascular & Interventional Radiology | DX: M25.521 Pain in right elbow (principal) | CPT/HCPCS: 73080 ==

== ENCOUNTER 2025-01-18 08:22 | Outpatient (AMB) | payer OTHER, SELFPAY ==
--- OUTSIDE RECORDS SUMMARY | 2025-01-18 08:29 | XMS_ITS | Patient Health Record ---
Author Organization [facility] Address [address] [place] [address] Care Team Providers Care Securities Teller Name Role Phone Mei JACKSON, Raquel Primary Care Provider Govind Giles Jr, Manjinder Unavailable Allergies Allergen (clinical drug ingredient) Drug/Non Drug Allergy documented on EMR Reaction Allergy Type Onset Date Status seasonal (uncoded) Unknown Allergy A ctive Reason For Referral No Information Medications Medication SIG (Take, Route, Frequency, Duration) Notes Start Date End Date Status Atorvastatin Calcium 20 MG 1 tablet Oral ly Once a day Active Omeprazole 20 MG 1 capsule Orally Onc e a day Active Colyte with Flavor Packs 240 GM As directed Orally Over the specified time. for 1 day(s) 04/21/2016 Active Vitamin D3 1000 UNIT 1 capsule Orally On ce a day Active Vitamin B1 100 MG 1 tablet with a meal Orally twice a day Active ZyrTEC Allergy 10 MG 1 tablet Orally Onc e a day Active Probiotic Orally prn Active Problems Problem Type SNOMED Code ICD Code Onset Dates Problem Status W/U Status Risk Notes Problem [id number] Colon cancer screening (Z12.11) Active confirmed Problem [id number] Epigastric pain (R10.13) Active confirmed Plan Of Treatment Future Test Test Name Order Date UPPER GI ENDOSCOPY 04/21/2016 COLONOSCOPY 04/21/2016 Insurance Providers Payer Name Payer Address Payer Phone Subscriber Number Group Number Insured Name Patient Relationship to Insured Coverage Start Date Coverage End Date [place] [address] [facility] [place] [phone] [id number] JAIME ROSALES Self - patient is the insured Medical (General) History Medical History History ICD Code asthma bipolar disorder prediabetic Surgical History Surgery Date(Month/Year) ablasion uterus
--- NOTE | 2025-01-18 08:34 | MHC.OFFVIS ---
Vital Signs 01/18/25 08:39 Height 5 ft 2 in Weight 251 lb BMI 45.9 Intake Visit Reasons: OV - Right Radial Head fx DOI 09/11/24 Intake Note: Haritha is a 59 year old right hand dominant female who presents today for a follow up visit for her fracture of head of right radius s/p fall DOI: 09/11/24. At her last visit she was instructed to gently increase exercise range of motion and gradually increase lifting weight to 15 pounds over the next four weeks. Patient reports that she is doing well, she feels improvement in her ROM. Allergies No Known Allergies (No Known Allergies*) Allergy (Verified 01/18/25 08:45) [facility] Medical History (Updated 12/07/24 @ 09:13 by CHAD Choe) Pedal edema Hx of fall Fracture of humerus, proximal, left, closed Intertrigo Tinea corporis Trigeminal neuralgia of left side of face ASCUS with positive high risk HPV Seasonal allergies Bipolar disorder Vitamin D deficiency Menopause Mild intermittent asthma GERD (gastroesophageal reflux disease) Psoriasis Impaired fasting glucose Mixed dyslipidemia Surgical History History of endometrial ablation Family History Father History of CVA (cerebrovascular accident) Lung cancer Depression Mother Diabetes mellitus Maternal Grandmother Diabetes mellitus Breast cancer Maternal Aunt Breast cancer Diabetes mellitus Maternal Uncle Colon cancer Brother No problems noted. Brother No problems noted. Sister No problems noted. Sister No problems noted. Son Mental health disorder Son No problems noted. 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 [employer] Sexual orientation: Straight/Heterosexual Gender identity: Female Cognitive needs: No Hearing needs: No Vision needs: Yes Physical Exam Vital Signs: BMI result Body Mass Index 45.9 Assessment & Plan Assessment & Plan (1) Right radial head fracture: Code(s): S52.121A - Displaced fracture of head of right radius, initial encounter for closed fracture Category: Medical Qualifiers: Encounter type: initial encounter Fracture type: closed Fracture alignment: nondisplaced Qualified Code(s): S52.124A - Nondisplaced fracture of head of right radius, initial encounter for closed fracture Plan History of Present Illness The patient is a 59-year-old female presenting with a follow-up for a rightradial head fracture. Patient reports that the right elbow is feeling very good, she experiences no further pain, and her range of motion is back to where it was prior to her injury. Denies numbness or tingling in the right upper extremity. No other acute complaints or concerns at this time. Review of Systems - Musculoskeletal: Reports persistent pain and tingling in the hand, numbness in the arm, arthritis in the thumb and hand - Neurological: Reports tingling in the hand, numbness in the arm - Endocrine: Denies regular blood sugar testing, diet-controlled diabetes Systems reviewed and are negative except as per HPI and below Physical Exam - Musculoskeletal: Full range of motion in the Right elbow, no tenderness to palpation, full pronation and supination Results Procedure Plan patient appears to have recovered very well from her right radial head fracture No further follow-up necessary Patient may gradually return back to full normal activity Patient is amenable to this plan Patient was informed and verbally consented to the use of an ambient scribe for clinic note documentation during this visit. Discussion Notes Patient Instructions Coding Level of Care Code Est Pt Level 3 (95928) Diagnoses Closed nondisplaced fracture of head of right radius, initial encounter S52.124A Encounter type: initial encounter Fracture type: closed Fracture alignment: nondisplaced
[2025-01-18 08:39] VITALS: BMI 45.9
== END 2025-01-18 09:05 | disposition home or self-care (01) ==
LOC: HO.HOS 08:22
PROVIDERS: PCP Internal Medicine
DX: S52.124A Nondisplaced fracture of head of right radius, initial encounter for closed fracture (principal)
CPT/HCPCS: 99212

== ENCOUNTER → 2025-01-18 08:22 | Outpatient (BNVA) | payer OTHER, SELFPAY | PROVIDERS: PCP Internal Medicine | DX: M79.641 Pain in right hand (principal); S52.121A Displaced fracture of head of right radius, initial encounter for closed fracture | CPT/HCPCS: 99212 ==

== ENCOUNTER 2025-01-30 08:40 | Outpatient (AMB) | payer OTHER, SELFPAY ==
--- OUTSIDE RECORDS SUMMARY | 2025-01-30 08:54 | XMS_ITS | Clinical Summary ---
Author Organization [facility] Address [address] [place] [address] Care Team Providers Care Metal Sponge Making Machine Operator Name Role Phone Raquel Hurley [...] 68 10/17/2022 11:38 AM EDT Temperature 36.6 C (97.9 F) 10/17/2022 11:38 AM EDT Respiratory Rate 18 10/17/2022 11:38 AM EDT [...] 1 - PCV) 2014 COVID-19 Vaccine ( season) 2024 08/05/2021, 11/29/2020 Alcohol/Substance Use Screening 07/25/2024 Depression Screening and Follow-Up 07/25/2024 [employer] D[employer] of [employer] Annual Screening 07/25/2024 Influenza Vaccine (#1) 2025 , 05/27/2021, 04/25/2019, Additional history exists DTaP,Tdap,and Td Vaccines (2 - Td or Tdap) 12/29/2027 12/28/2017 RSV Vaccine (60+ years old and patients) (1 - 1-dose 75+ series) 2039 Zoster Vaccines Completed 01/07/2021, 09/04/2020 Hepatitis B Vaccines Aged Out No long er eligible based on patient's age to complete this topic Insurance [place] [address] Care Teams Metal Sponge Making Machine Operator Relationship Specialty Start Date End Date Raquel Hurley MD [address] [place] [address] PCP - General Internal Medicine 10/17/22
--- OUTSIDE RECORDS SUMMARY | 2025-01-30 08:54 | XMS_ITS | Patient Health Record ---
Author Organization [facility] Address [address] [place] [address] Care Team Providers Care Swing Manager Name Role Phone Mei JACKSON, Raquel Primary [...] Problem Status W/U Status Risk Notes Problem [id number] Colon cancer screening (Z12.11) Active confirmed Problem [id number] Epigastric pain (R10.13) Active confirmed Plan Of Treatment Future Test Test Name Order Date UPPER GI ENDOSCOPY 04/21/2016 COLONOSCOPY 04/21/2016 Insurance Providers Payer Name Payer Address Payer Phone Subscriber Number Group Number Insured Name Patient Relationship to Insured Coverage Start Date Coverage End Date [place] [address] [place] [phone] [id number] JAIME ROSALES Self - patient is the insured Medical (General) History Medical History History ICD Code asthma bipolar disorder prediabetic Surgical History Surgery Date(Month/Year) ablasion uterus
--- NOTE | 2025-01-30 09:13 | MHC.OFFVIS ---
Intake Visit Reasons: 6 month/ [place] Allergies No Known Allergies (No Known Allergies*) Allergy (Verified 01/18/25 08:45) Medication List - Last Reconciled 01/30/25 by Konstantin Balderas MD acetaminophen mg PO albuterol sulfate 90 mcg/actuation 2 inhalations inhalation Q6H PRN atorvastatin 20 mg PO DAILY bupropion HCl XL 300 mg PO QAM carbamazepine 200 mg PO BID cetirizine 10 mg PO BEDTIME clobetasol 0.05% 1 appl topical BID 2 weeks diclofenac sodium 1% (Arthritis Pain (diclofenac)) 2 grams topical QID PRN fenofibrate nanocrystallized 145 mg PO DAILY fluticasone propionate 50 mcg/actuation 1 spray intranasal DAILY gabapentin 300 mg PO TID ibuprofen 600 mg PO Q6H PRN lithium carbonate ER 300 mg PO TID naproxen (Naprosyn) 500 mg PO BID omega-3 fatty acids-fish oil 300-1,000 mg 1 cap PO BID omeprazole 20 mg PO DAILY [travel compression socks Wear 1st thing in the morning and remove at night] HPI Comments Details: 59 years old woman with bipolar disorder, PTSD, asthma, and left-sided trigeminal neuralgia resulting in electric zaps type of feeling and pain on the left side of her face. She tried to hold a dose but that resulted in recurrence of pain and she restarted taking it. With medicines pain was controlled. [facility] Medical History (Updated 01/30/25 @ 09:16 by Konstantin Balderas MD) Trigeminal neuralgia of left side of face PTSD (post-traumatic stress disorder) Asthma Obesity Trigeminal neuralgia Spells of decreased attentiveness Pedal edema Hx of fall Fracture of humerus, proximal, left, closed Intertrigo Tinea corporis ASCUS with positive high risk HPV Seasonal allergies Bipolar disorder Vitamin D deficiency Menopause Mild intermittent asthma GERD (gastroesophageal reflux disease) Psoriasis Impaired fasting glucose Mixed dyslipidemia Surgical History History of endometrial ablation Family History (Updated 01/29/25 @ 11:15 by Matilde Delgado MA) Father History of CVA (cerebrovascular accident) Lung cancer Depression Mother Diabetes mellitus Maternal Grandmother Diabetes mellitus Breast cancer Maternal Aunt Breast cancer Diabetes mellitus Maternal Uncle Colon cancer Brother No problems noted. Brother No problems noted. Sister Seizure Sister Seizure Son Mental health disorder Son No problems noted. 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 HEENT:?No headache, vision changes, hearing loss, nasal congestion, sore throat. Neurological:?No dizziness, syncope, seizures, numbness, tingling, weakness, tremors, memory loss. Psychiatric:?No anxiety, depression, mood swings, sleep disturbance, or hallucinations. Endocrine:?No heat/cold intolerance, polydipsia, polyuria, or hair/skin changes. Hematologic/Lymphatic:?No easy bruising, bleeding, or lymphadenopathy. Integumentary (Skin):?No rash, lesions, itching, or color changes. ? Physical Exam Neuro Other: Mental Status: Alert and oriented to person, place, and time. Normal attention. Normal spontaneous speech, fluency, and comprehension. No obvious issues with mood and memory. Affect is appropriate. Cranial Nerves: CN II: Visual sharif full to confrontation, visual acuity intact. CN III, IV, : Pupils equal, round, reactive to light and accommodation. Extraocular movements are normal. CN V: Facial sensation is normal. CN VII: Facial movements symmetrical. CN VIII: Hearing intact to bedside conversation is normal. CN IX, X: Palate elevates symmetrically. CN XI: Shoulder shrug and head turn symmetrical. CN XII: Tongue midline without atrophy or fasciculations. Gait and Station: No obvious gait abnormality. No ataxia or instability. Sensory: Intact to light touch, pinprick, and vibration. Romberg is negative. Extrapyramidal: Full facial expressions and blinking. No rigidity. Movements are appropriate with no tremor or abnormality. Speech: Normal; no dysarthria or tremor. Assessment & Plan Assessment & Plan (1) Trigeminal neuralgia of left side of face: Code(s): G50.0 - Trigeminal neuralgia Category: Medical Plan Intractable left trigeminal neuralgia Recommendations: 1. Continue carbamazepine 200 mg 3 a day 2. Continue gabapentin 300 mg 3 a day. This combination has been working well for her without any side-effects. She has tried to decrease the dose or stop a dose but that resulted in recurrence of pain. Medications: New carbamazepine (Tegretol) 200 mg PO TID 270 tabs 1RF gabapentin 300 mg PO TID 270 caps 1RF Coding Level of Care Code Tele Est Pt Level 4 (21840) Diagnoses Trigeminal neuralgia of left side of face G50.0
== END 2025-01-30 09:23 | disposition home or self-care (01) ==
LOC: HO.HSM 08:41
PROVIDERS: PCP Internal Medicine; Visit Provider Psychiatry & Neurology Neurology
DX: G50.0 Trigeminal neuralgia (principal)
CPT/HCPCS: 99214

== ENCOUNTER → 2025-01-30 08:40 | Outpatient (BNVA) | payer OTHER, SELFPAY | PROVIDERS: PCP Internal Medicine; Visit Provider Psychiatry & Neurology Neurology | DX: G50.0 Trigeminal neuralgia (principal); F31.9 Bipolar disorder, unspecified; F43.10 Post-traumatic stress disorder, unspecified | CPT/HCPCS: 99212 ==

== ENCOUNTER 2025-02-26 08:17 | Outpatient (AMB) | payer OTHER, SELFPAY ==
--- OUTSIDE RECORDS SUMMARY | 2025-02-26 08:24 | XMS_ITS | Clinical Summary ---
Author Organization [facility] Address [address] [place] [address] Care Team Providers Care Professor Of Physical Education Name Role Phone Raquel Hurley MD Primary [...] Screening 07/25/2024 Depression Screening and Follow-Up 07/25/2024 [employer] Annual Screening 07/25/2024 Influenza [...] this topic Insurance [employer] Care Teams Professor Of Physical Education Relationship Specialty Start Date End Date Raquel Hurley MD [address] [place] [address] PCP - General Internal Medicine 10/17/22
--- OUTSIDE RECORDS SUMMARY | 2025-02-26 08:24 | XMS_ITS | Patient Health Record ---
Author Organization [facility] Address [address] [place] [address] Care Team Providers Care Spring Tacker Name Role Phone Mei JACKSON, Raquel Primary [...] Problem Status W/U Status Risk Notes Problem [id number] Colon cancer screening (Z12.11) Active confirmed Problem 94667720 Epigastric pain (R10.13) Active confirmed Plan Of Treatment Future Test Test Name Order Date UPPER GI ENDOSCOPY 04/21/2016 COLONOSCOPY 04/21/2016 Insurance Providers Payer Name Payer Address Payer Phone Subscriber Number Group Number Insured Name Patient Relationship to Insured Coverage Start Date Coverage End Date [place] [address] [facility] [place] [place] [phone] [id number] JAIME ROSALES Self - patient is the insured Medical (General) History Medical History History ICD Code asthma bipolar disorder prediabetic Surgical History Surgery Date(Month/Year) ablasion uterus
[2025-02-26 08:35] VITALS: BMI 44.5
--- NOTE | 2025-02-26 08:35 | A.OFFVIS_ITS ---
VS Expanded 02/26/25 08:35 Height 5 ft 2 in Weight 243 lb 6.245 oz BMI 44.5 Intake Visit Reasons: ifg Allergies No Known Allergies (No Known Allergies*) Allergy (Verified 01/18/25 08:45) Nutrition Presentation Details: Pt presents for MNT for IFG Pt reports working on choosing lower sugar beverages and lower sugar food (cereals/pastries/beverages) Pt reports having tingling sensation , reports having hx of b12 deficiency in the past Pt reports drinking [place] (1-2x/wk) which is fortified with vit b12 (has 50% vit B12 in a 16 oz serving) Reports participating in [employer] including more fruits/veg in diet, tolerating well. Food frequency Dairy: choosing lactose free options : 2/d fruits: 1-2/d vegetables: 4 x/wk protein: about 60 g physical activity: ADL etoh/smoking: denies BS Monitoring Most Recent Diabetes Results: Cholesterol, (<200) 169 mg/dL 11/19/24 HDL Cholesterol, (>40) 45 mg/dL 11/19/24 Triglycerides, (<150) 215 mg/dL H 11/19/24 Creatinine, (0.5-1.4) 0.74 mg/dL 11/19/24 BUN, (9-16) 11 mg/dL 11/19/24 Sodium, (135-145) 141 mmol/L 11/19/24 Potassium, (3.3-5.1) 4.1 mmol/L 11/19/24 Chloride, (96-108) 105 mmol/L 11/19/24 Carbon Dioxide, (22-29) 28 mmol/L 11/19/24 Calcium, (8.4-10.2) 9.1 mg/dL 11/19/24 AST, (5-31) 18 U/L 11/19/24 ALT, (0-31) 11 U/L 11/19/24 Total Protein, (6.5-8.0) 7.2 g/dL 11/19/24 Albumin, (3.5-5.0) 4.0 g/dL 11/19/24 [facility] Medical History (Updated 01/30/25 @ 09:16 by Konstantin Balderas MD) Trigeminal neuralgia of left side of face PTSD (post-traumatic stress disorder) Asthma Obesity Trigeminal neuralgia Spells of decreased attentiveness Pedal edema Hx of fall Fracture of humerus, proximal, left, closed Intertrigo Tinea corporis ASCUS with positive high risk HPV Seasonal allergies Bipolar disorder Vitamin D deficiency Menopause Mild intermittent asthma GERD (gastroesophageal reflux disease) Psoriasis Impaired fasting glucose Mixed dyslipidemia Surgical History History of endometrial ablation Family History (Updated 01/29/25 @ 11:15 by Matilde Delgado MA) Father History of CVA (cerebrovascular accident) Lung cancer Depression Mother Diabetes mellitus Maternal Grandmother Diabetes mellitus Breast cancer Maternal Aunt Breast cancer Diabetes mellitus Maternal Uncle Colon cancer Brother No problems noted. Brother No problems noted. Sister Seizure Sister Seizure Son Mental health disorder Son No problems noted. Social History Household Members: None Housing: Apartment Alcohol intake: never Patient Tobacco Use Status: Former Tobacco user Years Smoked: 15 yrs e-Cigarette/Vaping Use: Never Used Second Hand Smoke Exposure: Yes service: No Current occupational status: employed Current occupation: right hand dominant/ [id number] Sexual orientation: Straight/Heterosexual Gender identity: Female Cognitive needs: No Hearing needs: No Vision needs: Yes Assessment & Plan Assessment & Plan (1) Impaired fasting glucose: Code(s): R73.01 - Impaired fasting glucose Category: Medical Plan: wt today 243 lbs - working on prevention of weight gain est kcal needs as per [place] Jeor: 1625 kcal/day (40% carb, 30% fat/prot) est prot needs as per 0.8-1.0 g as per current BW (110 kg) = 88-110 g/day est fluid needs as per 30 ml/kg bw: 3000 ml/d. Rec fiber intake 25-30 g as tolerated NA: < 2300 mg/d Educate patient on: (R= Reviewed, V = verbalizes understanding N/R= Needs review N/A= not applicable) * Difference between complex carbohydrates and simple carbohydrates, role of fiber: R * Differences between fats (MUFA/PUFA/saturated fats, trans fats) and food sources of various fats: R * Food sources of sodium and salt and healthy modifications for heart health and kidney health: R * Vitamins and minerals: R ,V (b12 sources of foods) * Physical activity: benefits and precaution: R, V Patient Instructions: Include vit b12 sources of foods, at least 2.4 mcg per day see list of options Keep physically active as able Continue working on choosing low sugar options, following healthy plate method, working on diabetes prevention Coding Level of Care Code Nutr Indiv Subseq (99884) Diagnoses Impaired fasting glucose R73.01 Time Spent (min) 30
== END 2025-02-26 09:26 | disposition home or self-care (01) ==
LOC: HO.ENCR 08:18
PROVIDERS: PCP Internal Medicine; Visit Provider Dietitian, Registered
DX: R73.01 Impaired fasting glucose (principal)

== ENCOUNTER → 2025-02-26 08:17 | Outpatient (BNVA) | payer OTHER, SELFPAY | PROVIDERS: PCP Internal Medicine; Visit Provider Dietitian, Registered | DX: R73.01 Impaired fasting glucose (principal) | CPT/HCPCS: 97803 ==

== ENCOUNTER 2025-03-06 07:09 | Outpatient (REF) | payer OTHER, SELFPAY | END 2025-03-06 07:10 | disposition home or self-care (01) | LOC: HO.LAB 07:09 | PROVIDERS: PCP Internal Medicine; Visit Provider Physician Assistant | DX: R73.03 Prediabetes (principal); H53.8 Other visual disturbances; R53.83 Other fatigue; Z13.89 Encounter for screening for other disorder | CPT/HCPCS: 82948; 99212 ==

== ENCOUNTER 2025-03-06 07:09 | Outpatient (AMB) | payer OTHER, SELFPAY ==
--- OUTSIDE RECORDS SUMMARY | 2025-03-06 07:11 | XMS_ITS | Patient Health Record ---
Author Organization [facility] Address [address] [place] [address] Care Team Providers Care Welding Machine Operator Thermit Name Role Phone Mei JACKSON, Raquel Primary [...] Problem Status W/U Status Risk Notes Problem [id number] Colon cancer screening (Z12.11) Active confirmed Problem [id number] Epigastric pain (R10.13) Active confirmed Plan Of Treatment Future Test Test Name Order Date UPPER GI ENDOSCOPY 04/21/2016 COLONOSCOPY 04/21/2016 Insurance Providers Payer Name Payer Address Payer Phone Subscriber Number Group Number Insured Name Patient Relationship to Insured Coverage Start Date Coverage End Date [place] [address] [place] [phone] [id number] JAIME ROSALES Self - patient is the insured Medical (General) History Medical History History ICD Code asthma bipolar disorder prediabetic Surgical History Surgery Date(Month/Year) ablasion uterus
--- OUTSIDE RECORDS SUMMARY | 2025-03-06 07:11 | XMS_ITS | Clinical Summary ---
Author Organization [facility] Address [address] [place] [address] Care Team Providers Care Hammerer Helper Name Role Phone Raquel Hurley MD Primary [...] Screening 07/25/2024 Depression Screening and Follow-Up 07/25/2024 [employer] Drivers of Health Annual Screening 07/25/2024 Influenza [...] this topic Insurance [employer] Care Teams Hammerer Helper Relationship Specialty Start Date End Date Raquel Hurley MD [address] [place] [address] PCP - General Internal Medicine 10/17/22
--- NOTE | 2025-03-06 07:16 | AM.OFFWIN_ITS ---
Intake Vital Signs 03/06/25 07:17 Height 5 ft 2 in Weight 245 lb BMI 44.8 BP 110/72 Blood Pressure Location Lt brachial Position Sitting Respiration 16 Pulse 83 Pulse Source Pulse Oximeter Temp 98.0 F Temp Source Oral Pulse Oximetry (%) 98 Oxygen Delivery Method Room Air Intake Visit Reasons: EP Tingling in hand, on/off blurr vision, fatigue Intake Note: Pt is here today c/o tingling bilateral hand on and off blurred vision and fatigue [id number] Patient Tobacco Use Status: Former Tobacco user Allergies No Known Allergies (No Known Allergies*) Allergy (Verified 03/06/25 07:21) HPI HPI Comments History of Present Illness Details History of Present Illness - The patient is a 59-year-old female pr esenting with 2 main complaints: left arm numbness and tingling as well as blurry vision and spells of fatigue. - Left arm numbness and tingling began a month ago, with a history of shoulder fracture and dislocation three years prior. - The patient experiences numbness witho ut weakness when grasping objects. - Left humerus fracture in [place] [address] a fall while bowling, managed non- surgically by [facility]. - Completed PT and home exercises. 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 - Symptoms initially improved but have w orsened recently, with blurry vision episodes. - Blurry vision is intermittent, improvi ng with blinking or rest also with relief after eating - History of impaired fasting glucose, u sed to check blood sugars but doesn't anymore. - Lack of blood glucose monitoring due t o absence of equipment. - Had a coffee with flavored/sugared cre amer this morning but no food. - Generally skips breakfast, these sympt oms happen when she skips a meal. - Sees a asp net mvc developer, next appt is in [place] Physical Exam General: Cooperative, healthy appearing, comfortable, no acute distress and well developed Orientation: Patient oriented x3 Limitations: No limitations Head: Normal to inspection Ears: Hearing grossly normal bilaterally Nose: Normal External nose present Face and sinus: Normal facial exam Eyes: Blurry vision reported, appearance normal, both eyes and all related structures Neck: Normal visual inspection and Yes full ROM Respiratory: Normal respiratory effort and able to speak in complete sentences. Skin: No rashes or lesions noted Neuro: Patient oriented x3, numbness and tingling in the left arm, no weakness reported Extremities: Normal to inspection, bilateral medical information officer strength 5/5, left arm with full ROM, fingers NVI, negative Tinels, negative Phalens. no skin changes. [facility] Medical History Trigeminal neuralgia of left side of face PTSD (post-traumatic stress disorder) Asthma Obesity Trigeminal neuralgia Spells of decreased attentiveness Pedal edema Hx of fall Fracture of humerus, proximal, left, closed Intertrigo Tinea corporis ASCUS with positive high risk HPV Seasonal allergies Bipolar disorder Vitamin D deficiency Menopause Mild intermittent asthma GERD (gastroesophageal reflux disease) Psoriasis Impaired fasting glucose Mixed dyslipidemia Surgical History History of endometrial ablation Family History Father History of CVA (cerebrovascular accident) Lung cancer Depression Mother Diabetes mellitus Maternal Grandmother Diabetes mellitus Breast cancer Maternal Aunt Breast cancer Diabetes mellitus Maternal Uncle Colon cancer Brother No problems noted. Brother No problems noted. Sister Seizure Sister Seizure Son Mental health disorder Son No problems noted. 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 Sexual orientation: Straight/Heterosexual Gender identity: Female Cognitive needs: No Hearing needs: No Vision needs: Yes Review of Systems Const All systems reviewed & are unremarkable except as noted in HPI and below Physical Exam Vital Signs: Last Vital Signs Temp 98.0 F 03/06/25 07:17 Pulse 83 03/06/25 07:17 Resp 16 03/06/25 07:17 BP 110/72 03/06/25 07:17 Pulse Ox 98 03/06/25 07:17 Oxygen Delivery Method Room Air 03/06/25 07:17 BMI result Body Mass Index 44.8 Results AMB Random Glucose (hemocue) AMB Random Glucose (hemocue) 136 mg/dL Last Edit by Natalie Pearson MA on 03/06 07:46 Assessment & Plan Assessment & Plan (1) Impaired fasting glucose: Code(s): R73.01 - Impaired fasting glucose Plan: Plan - A1c 6.4 today. - Random glucose is 136mg/dl this morning. - Possible low blood sugars contributing to blurry vision and fatigue spells as they do improve with eating a snack. - Patient is pre-diabetic, will give her a meter and glucose strips so she can check her glucose. Follow up in 1 month with Nurse Navigator and repeat A1c in 3 months with PCP. - Evaluate the need for nerve conduction studies, such as EMG, for the left arm. Sent PCP message to see if she thinks its necessary to order this test, possible nerve damage from prior fracture of left arm. Advised to use Aleve and ice for now. - Implement dietary changes to stabilize blood glucose, focusing on balanced nutrition, trying to have a small snack upon waking that is an equal mix of carbs, fat and protein. Be sure to follow up with your asp net mvc developer. Patient was informed and verbally consented to the use of an ambient scribe for clinic note documentation during this visit. (2) Blurred vision, bilateral: Code(s): H53.8 - Other visual disturbances Plan: as above Orders: Orders Hemoglobin A1c Today R73.01 - Impaired fasting glucose AMB Random Glucose (hemocue) Today R73.01 - Impaired fasting glucose, Z13.9 - Encounter for screening, unspecified Coding Level of Care Code Est Pt Level 4 (71262) Diagnoses Impaired fasting glucose R73.01 Blurred vision, bilateral H53.8
[2025-03-06 07:17] VITALS: BP 110/72; PULSE 83; RESP 16; TEMP 36.7; O2SAT 98; BMI 44.8
== END 2025-03-06 08:23 | disposition home or self-care (01) ==
PROVIDERS: PCP Internal Medicine; Visit Provider Physician Assistant
DX: R73.01 Impaired fasting glucose (principal); H53.8 Other visual disturbances; Z13.9 Encounter for screening, unspecified

== ENCOUNTER 2025-03-11 07:41 | Outpatient (AMB) | payer OTHER, SELFPAY ==
--- OUTSIDE RECORDS SUMMARY | 2025-03-11 07:43 | XMS_ITS | Clinical Summary ---
Author Organization [facility] Address [address] [place] [address] Care Team Providers Care Cytogenetics Laboratory Manager Name Role Phone Raquel Hurley MD [...] Screening 07/25/2024 Depression Screening and Follow-Up 07/25/2024 [employer] Drivers of Health Annual Screening 07/25/2024 Influenza [...] this topic Insurance [employer] Care Teams Cytogenetics Laboratory Manager Relationship Specialty Start Date End Date Raquel Hurley MD [address] [place] [address] PCP - General Internal Medicine 10/17/22
--- OUTSIDE RECORDS SUMMARY | 2025-03-11 07:43 | XMS_ITS | Patient Health Record ---
Author Organization [facility] Address [address] [place] [address] Care Team Providers Care Diversity Manager Name Role Phone Mei JACKSON, Raquel Primary Care Provider Govind Giles Jr, Manjinder Unavailable [phone] Allergies Allergen (clinical drug ingredient) Drug/Non Drug [...] Problem Status W/U Status Risk Notes Problem [id number] Colon cancer screening (Z12.11) Active confirmed Problem [id number] Epigastric pain (R10.13) Active confirmed Plan Of Treatment Future Test Test Name Order Date UPPER GI ENDOSCOPY 04/21/2016 COLONOSCOPY 04/21/2016 Insurance Providers Payer Name Payer Address Payer Phone Subscriber Number Group Number Insured Name Patient Relationship to Insured Coverage Start Date Coverage End Date [place] [address] [place] [phone] [id number] JAIME ROSALES Self - patient is the insured Medical (General) History Medical History History ICD Code asthma bipolar disorder prediabetic Surgical History Surgery Date(Month/Year) ablasion uterus
--- NOTE | 2025-03-11 08:09 | A.OFFPC_ITS ---
Vital Signs 03/11/25 08:10 Height 5 ft 2 in Weight 251 lb BMI 45.9 BP 122/80 Blood Pressure Location Rt brachial Position Sitting Respiration 16 Pulse 65 Pulse Source Pulse Oximeter Temp 98.3 F Temp Source Oral Pulse Oximetry (%) 97 Oxygen Delivery Method Room Air Intake Visit Reasons: f/u walkin/hypoglycemia Intake Note: Pt is here today f/u walkin/hypoglycemia Allergies No Known Allergies (No Known Allergies*) Allergy (Verified 03/11/25 08:18) Medication List - Last Reconciled 03/11/25 by Raquel Hurley MD acetaminophen mg PO albuterol sulfate 90 mcg/actuation 2 inhalations inhalation Q6H PRN atorvastatin 20 mg PO DAILY bupropion HCl XL 300 mg PO QAM carbamazepine (Tegretol) 200 mg PO TID cetirizine 10 mg PO BEDTIME clobetasol 0.05% 1 appl topical BID 2 weeks diclofenac sodium 1% (Arthritis Pain (diclofenac)) 2 grams topical QID PRN fenofibrate nanocrystallized 145 mg PO DAILY fluticasone propionate 50 mcg/actuation 1 spray intranasal DAILY gabapentin 300 mg PO TID ibuprofen 600 mg PO Q6H PRN lithium carbonate ER 300 mg PO TID naproxen (Naprosyn) 500 mg PO BID omega-3 fatty acids-fish oil 300-1,000 mg 1 cap PO BID omeprazole 20 mg PO DAILY [travel compression socks Wear 1st thing in the morning and remove at night] Tobacco use date assessed: 03/11/25 Dental Screening Dental Screen Date: 11/26/24 HPI f/u walkin/hypoglycemia HPI Details 59-year-old lady with history of dyslipi demia, obesity, prediabetes, and mild intermittent asthma, here today for follow-up after recent walk-in visit where she was seen for intermittent episodes of blurry vision accompanied by shakes and development of cold sweats. One of the instance that this happened was several days ago when she started having blurry vision, started shaking, feeling nauseated and feeling lightheaded . This resolved after she had something to eat. Patient states that she ate that morning but only took special K and almond milk. She has been paying attention to her diet, has stopped using coffee cream ers, uses almond milk and cutting back on a lot of sugary foods. She has an appointment to see the nurse navigator later this month and a dietitian in the hospital in March. [facility] Medical History Prediabetes Trigeminal neuralgia of left side of face PTSD (post-traumatic stress disorder) Asthma Obesity Trigeminal neuralgia Spells of decreased attentiveness Pedal edema Hx of fall Fracture of humerus, proximal, left, closed Intertrigo Tinea corporis ASCUS with positive high risk HPV Seasonal allergies Bipolar disorder Vitamin D deficiency Menopause Mild intermittent asthma GERD (gastroesophageal reflux disease) Psoriasis Impaired fasting glucose Mixed dyslipidemia Surgical History History of endometrial ablation Family History Father History of CVA (cerebrovascular accident) Lung cancer Depression Mother Diabetes mellitus Maternal Grandmother Diabetes mellitus Breast cancer Maternal Aunt Breast cancer Diabetes mellitus Maternal Uncle Colon cancer Brother No problems noted. Brother No problems noted. Sister Seizure Sister Seizure Son Mental health disorder Son No problems noted. 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 Sexual orientation: Straight/Heterosexual Gender identity: Female Cognitive needs: No Hearing needs: No Vision needs: Yes Questionnaire Thrive Questionnaire Date Thrive assessed: 11/19/24 I am a: Patient What is your living situation today?: I have a steady place to live Within the past 12 months, did the food you bought not last and you didn't have the money to get more?: Never true Within the past 12 months, did you worry whether your food would run out before you got money to buy more?: Sometimes True Do you have trouble paying for medicines?: No Do you have trouble getting transportation to medical appointments?: No Do you have trouble paying your heating and electricity bill?: No Do you have trouble taking care of your child, family member or friend?: No Do you have trouble with day-to-day activities such as bathing, preparing meals, shopping, managing finances, etc.?: No Are you currently unemployed and looking for a job?: Yes Are you interested in more education?: No Please select the resources that you would like help with: None Currently or been in a relationship where the following occur: No concerns reported THRIVE Score: 1 AUDIT C Alcohol Use Questionnaire (AUDIT-C) 3. How often do you have six or more drinks on one occasion?: Never Total Score: 0 SAM-7 AMB Questionnaire SAM-7 Date SAM - 7 assessed: 11/26/24 Source: Developed by Drs. Brett Espinoza, Allison Rutledge, Yanick Mac and colleagues, with an educational aleksey from [employer]. Review of Systems Const All systems reviewed & are unremarkable except as noted in HPI and below Physical exam (Primary Care) Vital Signs: Last Vital Signs Temp 98.3 F 03/11/25 08:10 Pulse 65 03/11/25 08:10 Resp 16 03/11/25 08:10 BP 122/80 03/11/25 08:10 Pulse Ox 97 03/11/25 08:10 Oxygen Delivery Method Room Air 03/11/25 08:10 BMI result Body Mass Index 45.9 Tobacco/Smoking Status: Tobacco use Status Tobacco use date assessed 03/11/25 03/11/25 08:17 Patient Tobacco Use Status Former Tobacco user 03/11/25 08:09 e-Cigarette/Vaping Use Never Used 03/11/25 08:09 Thrive Assessment: Date of Thrive Assessment Date Thrive assessed 11/19/24 03/11/25 08:09 Currently or been in a relationship where the following occur: No concerns reported Const General: no acute distress Nutritional Appearance: obese Orientation/consciousness: patient oriented x3 HENMT Head: Yes normocephalic Mouth: moist mucous membranes Eyes Pupils: Equal, round and reactive pupils present Neck Neck: Yes full ROM and Yes no lymphadenopathy Thyroid: Thyroid normal Resp Effort & Inspection: normal respiratory effort and able to speak in complete sentences Auscultation: clear to auscultation bilaterally Cardio Heart sounds: S1 normal heart sound present and S2 normal heart sound present GI Inspection: Yes Abdominal panniculus present and Yes obesity Palpation (GI): Soft to palpation, nontender and no guarding Auscultation: normal bowel sounds Skin General skin exam: dry skin Neuro General: patient oriented x3, gait normal and moves all extremities Cranial nerves: Yes Equal, round and reactive pupils present and Yes Bilaterally intact EOM present Motor exam (neuro): 5/5 motor strength present throughout Extrem General: Yes full ROM Psych Speech and movement: Normal speech and movement present Results AMB Hemoglobin A1c AMB Hemoglobin A1c 6.1 % Last Edit by Karen Braxton CMA on 03/11/25 08:20 Results Reviewed Results Reviewed: Laboratory Last Values Hgb A1c (Clinic) 6.1 % (4.0-6.0) H 03/11/25 08:10 Laboratory Tests 03/11/25 08:10 Hgb A1c (Clinic) 6.1 H Coding Level of Care Code Est Pt Level 4 (00093) Diagnoses Prediabetes R73.03 Assessment & Plan Assessment & Plan (1) Prediabetes: Code(s): R73.03 - Prediabetes Category: Medical Plan: Episodes described above could be either from high blood sugar or hypoglycemic events. She was prescribed freestyle Lite meter, test strips and lancets, check glucose either before a meal or 2 hours after. Her blood sugar when it is fasting should not go above 100 mg/dL and 2 hours after eating should not go above 150 mg/dL keep appointment with nurse navigator later this month and with the dietitian next month for guidance. Orders: Orders AMB Hemoglobin A1c Today Z13.9 - Encounter for screening, unspecified Medications: New blood-glucose meter (FreeStyle Lite Meter kit) As directed 1 ea 0RF R73.03 - Prediabetes FreeStyle Lite Strips (blood sugar diagnostic) Check fasting glucose once a day before meal or 2 hours after each 50 ea 2RF NS R73.03 - Prediabetes lancets (FreeStyle Lancets) Check goes before meal, or 2 hours after 100 ea 2RF
[2025-03-11 08:10] VITALS: BP 122/80; PULSE 65; RESP 16; TEMP 36.8; O2SAT 97; BMI 45.9
== END 2025-03-11 08:37 | disposition home or self-care (01) ==
LOC: HO.HMCC 07:42
PROVIDERS: PCP Internal Medicine; Visit Provider Internal Medicine
DX: Z13.9 Encounter for screening, unspecified (principal); R73.03 Prediabetes

== ENCOUNTER → 2025-03-11 07:41 | Outpatient (BNVA) | payer OTHER, SELFPAY | PROVIDERS: PCP Internal Medicine; Visit Provider Internal Medicine | DX: R73.03 Prediabetes (principal); E78.5 Hyperlipidemia, unspecified; E66.9 Obesity, unspecified; J45.909 Unspecified asthma, uncomplicated; Z68.42 Body mass index [BMI] 45.0-49.9, adult | CPT/HCPCS: 83036; 99212 ==

== ENCOUNTER 2025-03-13 06:59 | Outpatient (REF) | payer OTHER, SELFPAY ==
--- NOTE | ~2025-03-13 | MM_ITS ---
EXAMINATION: MM SCREENING DIGITAL BREAST TOMOSYNTHESIS, BILATERAL CLINICAL INFORMATION: Screening. Asymptomatic. COMPARISON: Mammography: Comparison is made with available priors TECHNIQUE: Digital breast mammography with tomosynthesis is performed in both the craniocaudal and mediolateral oblique views along with computer-aided detection (CAD). FINDINGS: There are scattered areas of fibroglandular density (ACR BI-RADS breast composition Category b). Left marker clip. There are no significant masses, abnormal calcifications, or other abnormalities. MM/MM tomosynthesis screening BI IMPRESSION: No mammographic evidence of malignancy. ASSESSMENT: BI-RADS BI-RADS 2 - Benign Findings RECOMMENDATION: Routine annual mammography screening. 1 year F/U This examination should not preclude the clinical evaluation of a suspicious palpable abnormality. This patient's information was entered into a reminder system with a target due date for their next mammogram. Electronically signed by: Brina Dodd DO 03/14/2025 01:16 PM EDT
--- OUTSIDE RECORDS SUMMARY | 2025-03-13 07:00 | XMS_ITS | Clinical Summary ---
Author Organization [facility] Address [address] [place] [address] Care Team Providers Care Blueprint Assembler Name Role Phone Raquel Hurley MD Primary [...] Screening 07/25/2024 Depression Screening and Follow-Up 07/25/2024 [employer] Drivers of Health Annual Screening 07/25/2024 Influenza [...] this topic Insurance [employer] Care Teams Blueprint Assembler Relationship Specialty Start Date End Date Raquel Hurley MD [address] [place] [address] PCP - General Internal Medicine 10/17/22
== END 2025-03-13 07:00 | disposition home or self-care (01) ==
LOC: HO.MAMMO 06:59
PROVIDERS: PCP Internal Medicine; Visit Provider Internal Medicine
DX: Z12.31 Encounter for screening mammogram for malignant neoplasm of breast (principal)
CPT/HCPCS: 77063; 77067

== ENCOUNTER → 2025-03-13 07:30 | Outpatient (BNV) | payer OTHER, SELFPAY | PROVIDERS: PCP Internal Medicine; Visit Provider Internal Medicine | DX: Z12.31 Encounter for screening mammogram for malignant neoplasm of breast (principal) | CPT/HCPCS: 77063; 77067 ==

== ENCOUNTER 2025-03-21 16:44 | Outpatient (REF) | payer OTHER, SELFPAY ==
--- OUTSIDE RECORDS SUMMARY | 2025-03-21 16:49 | XMS_ITS | Patient Health Record ---
Author Organization [facility] Address [address] [place] [address] Care Team Providers Care Washer Meat Name Role Phone Mei JACKSON, Raquel Primary Care Provider Govind Giles Jr, Mnajinder Unavailable Allergies Allergen (clinical drug ingredient) Drug/Non [...] Problem Status W/U Status Risk Notes Problem [id number] Colon cancer screening (Z12.11) Active confirmed Problem [id number] Epigastric pain (R10.13) Active confirmed Plan Of Treatment Future Test Test Name Order Date UPPER GI ENDOSCOPY 04/21/2016 COLONOSCOPY 04/21/2016 Insurance Providers Payer Name Payer Address Payer Phone Subscriber Number Group Number Insured Name Patient Relationship to Insured Coverage Start Date Coverage End Date [place] [address] [place] [phone] [id number] JAIME ROSALES Self - patient is the insured Medical (General) History Medical History History ICD Code asthma bipolar disorder prediabetic Surgical History Surgery Date(Month/Year) ablasion uterus
--- OUTSIDE RECORDS SUMMARY | 2025-03-21 16:49 | XMS_ITS | Clinical Summary ---
Author Organization [facility] Address [address] [place] [address] Care Team Providers Care Corduroy Cutter Operator Name Role Phone Raquel Hurley MD [...] Screening 07/25/2024 Depression Screening and Follow-Up 07/25/2024 [email or web address] Drivers of Health Annual Screening 07/25/2024 Influenza [...] to complete this topic [place] [address] Care Teams Corduroy Cutter Operator Relationship Specialty Start Date End Date Raquel Hurley MD [address] [place] [address] PCP - General Internal Medicine 10/17/22
== END 2025-03-21 16:45 | disposition home or self-care (01) ==
LOC: HO.HOSX 16:44
DX: Z13.89 Encounter for screening for other disorder (principal)

== ENCOUNTER 2025-03-22 10:50 | Outpatient (REF) | payer OTHER, SELFPAY ==
--- NOTE | ~2025-03-22 | XR_ITS ---
EXAMINATION: XR SHOULDER 2 OR MORE VIEWS LEFT HISTORY: M25.512 - Pain in left shoulder COMPARISON: Comparison is made with the prior examination dated 06/09/2023. FINDINGS: Three views of the left shoulder are submitted. Osseous mineralization is normal. There is a chronic posttraumatic deformity of the humeral head and neck. There is no acute fracture or dislocation. Glenohumeral joint is maintained. There is mild narrowing of the AC joint. The soft tissues are unremarkable. XR/XR shoulder LT min 2V IMPRESSION: Mild narrowing of the AC joint. Electronically signed by: Brett Montesinos MD 03/22/2025 11:33 AM EDT
== END 2025-03-22 10:51 | disposition home or self-care (01) ==
LOC: HO.HOSX 10:50
PROVIDERS: PCP Internal Medicine
DX: M25.512 Pain in left shoulder (principal); R20.2 Paresthesia of skin; R20.0 Anesthesia of skin
CPT/HCPCS: 73030; 99212

== ENCOUNTER 2025-03-22 10:50 | Outpatient (AMB) | payer OTHER, SELFPAY ==
--- NOTE | 2025-03-22 11:14 | A.OFFVIS_ITS ---
Vital Signs 03/22/25 11:14 Height 52 ft Weight 251 lb BMI 0.5 Intake Visit Reasons: New prob LT shoulder pain Intake Note: Haritha is a 59 year old right hand dominant female who presents today for a new problem visit complaining of left shoulder pain. Patient complains of left hand numbness and tingling on the dorsal aspect of the hand, and most fingers. She finds herself dropping objects or experiencing difficulty grabbing items during episodes. Denies finger locking. Has tried braces, Ibuprofen PRN, Tylenol PRN with relief. Denies any recent injuries to the left hand. Status post left humerus fx, DOI 10/17/22, non surgical. Hx Pre-Diabetes, A1C: 6.1% -03/11/25 Allergies No Known Allergies (No Known Allergies*) Allergy (Verified 03/22/25 11:16) HPI HPI New prob LT shoulder pain: Details: Haritha is a 59 year old right hand dominant female who presents today for a new problem visit complaining of left shoulder pain. Patient complains of left hand numbness and tingling on the dorsal aspect of the hand, and most fingers. She finds herself dropping objects or experiencing difficulty grabbing items during episodes. Denies finger locking. Has tried braces, Ibuprofen PRN, Tylenol PRN with relief. Denies any recent injuries to the left hand. Status post left humerus fx, DOI 10/17/22, non surgical. Of note, the patient reports that her left shoulder is not actually her main concern, and that the numbness and tingling she is experiencing in the left arm and hand, primarily in the hand, is her main concern. Hx Pre-Diabetes, A1C: 6.1% -03/11/25 [facility] Medical History Prediabetes Trigeminal neuralgia of left side of face PTSD (post-traumatic stress disorder) Asthma Obesity Trigeminal neuralgia Spells of decreased attentiveness Pedal edema Hx of fall Fracture of humerus, proximal, left, closed Intertrigo Tinea corporis ASCUS with positive high risk HPV Seasonal allergies Bipolar disorder Vitamin D deficiency Menopause Mild intermittent asthma GERD (gastroesophageal reflux disease) Psoriasis Impaired fasting glucose Mixed dyslipidemia Surgical History History of endometrial ablation Family History Father History of CVA (cerebrovascular accident) Lung cancer Depression Mother Diabetes mellitus Maternal Grandmother Diabetes mellitus Breast cancer Maternal Aunt Breast cancer Diabetes mellitus Maternal Uncle Colon cancer Brother No problems noted. Brother No problems noted. Sister Seizure Sister Seizure Son Mental health disorder Son No problems noted. Social History (Updated 03/22/25 @ 11:21 by SCOTT Cooper) Household Members: None Housing: Apartment Alcohol intake: never Patient Tobacco Use Status: Former Tobacco user Years Smoked: 15 yrs e-Cigarette/Vaping Use: Never Used Second Hand Smoke Exposure: Yes service: No Current occupational status: employed Current occupation: right hand dominant/ [employer] Sexual orientation: Straight/Heterosexual Gender identity: Female Cognitive needs: No Hearing needs: No Vision needs: Yes Review of Systems Const All systems reviewed & are unremarkable except as noted in HPI and below Physical Exam Vital Signs: BMI result Body Mass Index 0.5 Extrem Other: Neuro: Normal sensation of the tips of all digits of the left hand in the office today No thenar or intrinsic wasting. Good APB muscle firing and good finger cross. Vascular: Capillary refill brisk. ROM: Patient can make a fist and extend all their digits. Skin: No lacerations or abrasions noted. General: No ecchymosis. No erythema or evidence of infection. Assessment & Plan Assessment & Plan (1) Numbness and tingling of left hand: Code(s): R20.0 - Anesthesia of skin; R20.2 - Paresthesia of skin Category: Medical Plan 1. Numbness and tingling of the left hand, with associated pain Symptoms intermittent, daily, worse at night Patient is educated about this condition Patient is educated about some of the possible etiologies of her numbness and tingling and the typical diagnostic and treatment course At this time, patient is referred for EMG and nerve conduction study for assessment of the health of the nerves of the left arm and hand Patient will follow-up after EMG and nerve conduction study for results review and discussion of further treatment options if indicated Patient understands this and is amenable to this plan Orders: Orders XR shoulder LT min 2V Today M25.512 - Pain in left shoulder NE electromyogram (EMG) Today R20.0 - Anesthesia of skin, R20.2 - Paresthesia of skin NE nerve conduction velocity Today R20.0 - Anesthesia of skin, R20.2 - Paresthesia of skin Coding Level of Care Code Est Pt Level 3 (24016) Diagnoses Numbness and tingling of left hand R20.0; R20.2
--- OUTSIDE RECORDS SUMMARY | 2025-03-22 11:30 | XMS_ITS | Patient Health Record ---
Author Organization [facility] Address [address] [place] [address] Care Team Providers Care Coke Loader Name Role Phone Mei JACKSON, Raquel Primary Care Provider Govind Giles Jr, Manjinder Unavailable [phone] Allergies Allergen (clinical drug ingredient) Drug/Non Drug [...] Problem Status W/U Status Risk Notes Problem [id number] Colon cancer screening (Z12.11) Active confirmed Problem [id number] Epigastric pain (R10.13) Active confirmed Plan Of Treatment Future Test Test Name Order Date UPPER GI ENDOSCOPY 04/21/2016 COLONOSCOPY 04/21/2016 Insurance Providers Payer Name Payer Address Payer Phone Subscriber Number Group Number Insured Name Patient Relationship to Insured Coverage Start Date Coverage End Date [place] [address] [place] [phone] [id number] JAIME ROSALES Self - patient is the insured Medical (General) History Medical History History ICD Code asthma bipolar disorder prediabetic Surgical History Surgery Date(Month/Year) ablasion uterus
--- OUTSIDE RECORDS SUMMARY | 2025-03-22 11:30 | XMS_ITS | Clinical Summary ---
Author Organization [facility] Address [address] [place] [address] Care Team Providers Care Video Library Assistant Name Role Phone Raquel Hurley MD Primary [...] Screening 07/25/2024 Depression Screening and Follow-Up 07/25/2024 [employer] Annual Screening 07/25/2024 Influenza [...] this topic Insurance [employer] Care Teams Video Library Assistant Relationship Specialty Start Date End Date Raquel Hurley MD [address] [place] [address] PCP - General Internal Medicine 10/17/22
== END 2025-03-22 11:47 | disposition home or self-care (01) ==
LOC: HO.HOS 10:51
PROVIDERS: PCP Internal Medicine
DX: R20.0 Anesthesia of skin (principal); R20.2 Paresthesia of skin
CPT/HCPCS: 99213

== ENCOUNTER → 2025-03-22 11:02 | Outpatient (BNV) | payer OTHER, SELFPAY | PROVIDERS: PCP Internal Medicine; Visit Provider Radiology Diagnostic Radiology | DX: M25.512 Pain in left shoulder (principal) | CPT/HCPCS: 73030 ==

== ENCOUNTER → 2025-04-04 07:49 | Outpatient (BNVA) | payer OTHER, SELFPAY | PROVIDERS: PCP Internal Medicine | DX: E11.9 Type 2 diabetes mellitus without complications (principal) | CPT/HCPCS: 99211 ==

== ENCOUNTER 2025-05-27 08:18 | Outpatient (AMB) | payer OTHER, SELFPAY ==
--- OUTSIDE RECORDS SUMMARY | 2025-05-27 08:31 | XMS_ITS | Patient Health Record ---
Author Organization [facility] Address [address] [place] [address] Care Team Providers Care Can Inspector Name Role Phone Mei JACKSON, Raquel Primary Care Provider Govind Giles Jr, Manjinder Unavailable [phone] Allergies Allergen (clinical drug ingredient) Drug/Non Drug [...] GM As directed Orally Over the specified time.; Duration: 1 day(s) 04/21/2016 Active Vitamin D3 1000 UNIT 1 capsule Orally On ce a day Active Vitamin B1 100 MG 1 tablet with a meal Orally twice a day Active ZyrTEC Allergy 10 MG 1 tablet Orally Onc e a day Active Probiotic Orally prn Active Problems Problem Type SNOMED Code ICD Code Onset Dates Problem Status W/U Status Risk Notes Problem Colon cancer screening (703680347) Colon cancer screening (Z12.11) Active confirmed Problem Epigastric pain (64033626) Epigastric pain (R10.13) Active confirmed Plan Of Treatment Future Test Test Name Order Date UPPER GI ENDOSCOPY 04/21/2016 COLONOSCOPY 04/21/2016 Insurance Providers Payer Name Payer Address Payer Phone Subscriber Number Group Number Insured Name Patient Relationship to Insured Coverage Start Date Coverage End Date MEDICAID OF [facility] [address] [place] [address] [id number] JAIME ROSALES Self - patient is the insured Medical (General) History Medical History History ICD Code asthma bipolar disorder prediabetic Surgical History Surgery Date(Month/Year) ablasion uterus
--- OUTSIDE RECORDS SUMMARY | 2025-05-27 08:31 | XMS_ITS | Clinical Summary ---
Author Organization [facility] Address [address] [place] [address] Care Team Providers Care Lead Java Developer Architect Name Role Phone Raquel Hurley MD Primary [...] Years (1 of 1 - PCV) 2014 Alcohol/Substance Use Screening 07/25/2024 Depression Screening and Follow-Up 07/25/2024 Social Drivers of Health Annual Screening 07/25/2024 COVID-19 Vaccine ( - season) 2025 08/05/2021, 11/29/2020 Influenza Vaccine (#1) 2025 , 05/27/2021, 04/25/2019, Additional history exists DTaP,Tdap,and Td Vaccines (2 - Td or Tdap) 12/29/2027 12/28/2017 RSV Vaccine (60+ years old and patients) (1 - 1-dose 75+ series) 2039 Zoster Vaccines Completed 01/07/2021, 09/04/2020 Hepatitis B Vaccines Aged Out No long er eligible based on patient's age to complete this topic Insurance [employer] Care Teams Lead Java Developer Architect Relationship Specialty Start Date End Date Raquel Hurley MD [address] [address] PCP - General Internal Medicine 10/17/22
--- NOTE | 2025-05-27 08:37 | A.OFFVIS_ITS ---
VS Expanded 05/27/25 08:43 Height 5 ft 2 in Weight 250 lb 0.067 oz BMI 45.7 Intake Visit Reasons: IFG Allergies No Known Allergies (No Known Allergies*) Allergy (Verified 03/22/25 11:16) Nutrition Presentation Details: Pt presents for MNT for T2DM Most recent A1c 6.1% on 02/2025.Pt has glucometer and most recent 14 d bg average at 124 mg/dl Pt reports feeling overwhelmed, trying to work on diet modifications Acknowledges less physical activity, admits to increased snacks in evening [facility] Prediabetes Trigeminal neuralgia of left side of face PTSD (post-traumatic stress disorder) Asthma Obesity Trigeminal neuralgia Spells of decreased attentiveness Pedal edema Hx of fall Fracture of humerus, proximal, left, closed Intertrigo Tinea corporis ASCUS with positive high risk HPV Seasonal allergies Bipolar disorder Vitamin D deficiency Menopause Mild intermittent asthma GERD (gastroesophageal reflux disease) Psoriasis Impaired fasting glucose Mixed dyslipidemia Surgical History History of endometrial ablation Family History Father History of CVA (cerebrovascular accident) Lung cancer Depression Mother Diabetes mellitus Maternal Grandmother Diabetes mellitus Breast cancer Maternal Aunt Breast cancer Diabetes mellitus Maternal Uncle Colon cancer Brother No problems noted. Brother No problems noted. Sister Seizure Sister Seizure Son Mental health disorder Son No problems noted. Social History (Updated 03/22/25 @ 11:21 by SCOTT Cooper) Household Members: None Housing: Apartment Alcohol intake: never Patient Tobacco Use Status: Former Tobacco user Years Smoked: 15 yrs e-Cigarette/Vaping Use: Never Used Second Hand Smoke Exposure: Yes service: No Current occupational status: employed Current occupation: right hand dominant/ [employer] Sexual orientation: Straight/Heterosexual Gender identity: Female Cognitive needs: No Hearing needs: No Vision needs: Yes Assessment & Plan Assessment & Plan (1) Impaired fasting glucose: Code(s): R73.01 - Impaired fasting glucose Category: Medical Plan: 05/2025 wt at 250 ( gained 13 lbs in 3m) 02/2024wt today 243 lbs - working on prevention of weight gain est kcal needs as per [place]in[facility] [facility] Jeor: 1625 kcal/day (40% carb, 30% fat/prot) est prot needs as per 0.8-1.0 g as per current BW (110 kg) = 88-110 g/day est fluid needs as per 30 ml/kg bw: 3000 ml/d. Rec fiber intake 25-30 g as tolerated NA: < 2300 mg/d Educate patient on: (R= Reviewed, V = verbalizes understanding N/R= Needs review N/A= not applicable) * Difference between complex carbohydrates and simple carbohydrates, role of fiber: R * Differences between fats (MUFA/PUFA/saturated fats, trans fats) and food sources of various fats: R * Food sources of sodium and salt and healthy modifications for heart health and kidney health: R * Vitamins and minerals: R ,V (b12 sources of foods) * Physical activity: benefits and precaution: R, V Patient Instructions: Resume watching your portion sizes of total carbs to less than 45 per meal and snack less than 20 g carb (limit 2/day) Choose lower carb/high fiber snacks (celery, carrots, cucumbers and choose low calorie dips - see list of options keep a food record - bring to your next f/u Coding Level of Care Code Nutr Indiv Subseq (07090) Diagnoses Impaired fasting glucose R73.01 Time Spent (min) 30
[2025-05-27 08:43] VITALS: BMI 45.7
== END 2025-05-27 09:12 | disposition home or self-care (01) ==
LOC: HO.ENCR 08:18
PROVIDERS: PCP Internal Medicine; Visit Provider Dietitian, Registered
DX: R73.01 Impaired fasting glucose (principal)

== ENCOUNTER → 2025-05-27 08:18 | Outpatient (BNVA) | payer OTHER, SELFPAY | PROVIDERS: PCP Internal Medicine; Visit Provider Dietitian, Registered | DX: R73.01 Impaired fasting glucose (principal) | CPT/HCPCS: 97803 ==

== ENCOUNTER 2025-05-28 08:16 | Outpatient (REF) | payer OTHER, SELFPAY ==
--- OUTSIDE RECORDS SUMMARY | 2025-05-28 08:39 | XMS_ITS | Patient Health Record ---
Author Organization [facility] Address [address] [place] [address] Care Team Providers Care Clinical Program Director Name Role Phone Mei JACKSON, Raquel Primary Care Provider Govind Giles Jr, Manjinder Unavailable [phone] Allergies Allergen (clinical drug ingredient) Drug/Non [...] Status Risk Notes Problem Colon cancer screening (102906476) Colon cancer screening (Z12.11) Active confirmed Problem Epigastric pain (18749966) Epigastric pain (R10.13) Active confirmed Plan Of Treatment Future Test Test Name Order Date UPPER GI ENDOSCOPY 04/21/2016 COLONOSCOPY 04/21/2016 Insurance Providers Payer Name Payer Address Payer Phone Subscriber Number Group Number Insured Name Patient Relationship to Insured Coverage Start Date Coverage End Date MEDICAID OF [facility] [address] [place] [address] [phone] [id number] JAIME ROSALES Self - patient is the insured Medical (General) History Medical History History ICD Code asthma bipolar disorder prediabetic Surgical History Surgery Date(Month/Year) ablasion uterus
--- OUTSIDE RECORDS SUMMARY | 2025-05-28 08:39 | XMS_ITS | Clinical Summary ---
Author Organization [facility] Address [address] [place] [address] Care Team Providers Care Diabetes Manager Name Role Phone Raquel Hurley MD [...] to complete this topic Insurance [employer] [place] [address] Care Teams Diabetes Manager Relationship Specialty Start Date End Date Raquel Hurley MD [address] [place] [address] PCP - General Internal Medicine 10/17/22
[2025-05-28 10:55] LABS: Microalbum/Creatinine Ratio Ur 6.0 ug/mg cr (<30)
[2025-05-28 11:10] LABS: Alanine Aminotransferase 15 U/L (0-31); Anion Gap 11 (12-20); Aspartate Amino Transferase 34 U/L (5-31); Blood Urea Nitrogen 13 mg/dL (9-16); Calcium 9.0 mg/dL (8.4-10.2); Carbon Dioxide 28 mmol/L (22-29); Chloride 106 mmol/L (96-108); Cholesterol 166 mg/dL (<200); Estimated Glomerular Filt Rate 59; HDL Cholesterol 45 mg/dL (>40); Potassium 4.3 mmol/L (3.3-5.1); Sodium 141 mmol/L (135-145); Triglycerides 208 mg/dL (<150)
[2025-05-28 11:35] LABS: Folate 7.6 ng/mL (> or = 4.0); Vitamin B12 472 pg/mL (200-900)
== END 2025-05-28 08:17 | disposition home or self-care (01) ==
LOC: HO.HMGCLDS 08:16
PROVIDERS: PCP Internal Medicine; Visit Provider Internal Medicine
DX: J30.2 Other seasonal allergic rhinitis (principal); K21.9 Gastro-esophageal reflux disease without esophagitis; L40.9 Psoriasis, unspecified; E78.2 Mixed hyperlipidemia; R73.01 Impaired fasting glucose; R60.0 Localized edema; Z83.49 Family history of other endocrine, nutritional and metabolic diseases
CPT/HCPCS: 36415; 80048; 80061; 82043; 82306; 82570; 82607; 82746; 83036; 84450; 84460

== ENCOUNTER 2025-05-29 09:16 | Outpatient (REF) | payer OTHER, SELFPAY ==
--- NOTE | 2025-05-29 09:19 | EMG_ITS ---
Chief complaint: Left arm pain, numbness on left palm and dorsal hand, and 2nd 5th digits. History of left humerus fracture 2022. Reason for referral: Evaluate for Carpal Tunnel Syndrome versus ulnar neuropathy versus radial neuropathy Referred by: Misael BONILLA Procedure done: Left upper extremity NCS/EMG Precautions and/or limitations: None The limb temperature was monitored continuously and remained between 32-36 degrees C during the performance of the NCS. Nerve Conduction Studies Anti Sensory Summary Table ?Stim Site NR Onset (ms) Norm Onset (ms) Peak (ms) Norm Peak (ms) O-P Amp (?V) Norm O-P Amp Site1 Site2 Delta-0 (ms) Dist (cm) Juan (m/s) Norm Juan (m/s) Left Lat Ante Brach Cutan Anti Sensory (Lat Forearm) Lat Biceps ? 0.6 1.3 22.3 Lat Biceps Lat Forearm 0.6 0.0 Left Median Anti Sensory (2nd Digit) Wrist ? 2.2 2.9 <3.6 38.2 >10 Wrist 2nd Digit 2.2 14.0 64 Left Radial Anti Sensory (Thumb) Forearm ? 1.8 2.3 <3.1 14.3 Forearm Thumb 1.8 0.0 Left Ulnar Anti Sensory (5th Digit) Wrist ? 2.3 3.1 <3.7 37.8 >15.0 Wrist 5th Digit 2.3 14.0 61 Motor Summary Table ?Stim Site NR Onset (ms) Norm Onset (ms) O-P Amp (mV) Norm O-P Amp iAmp (mV) Amp (1st) (%) Site1 Site2 Delta-0 (ms) Dist (cm) Juan (m/s) Norm Juan (m/s) Left Median Motor (Abd Poll Brev) Wrist ? 3.3 <3.9 7.3 >4.5 8.3 100.0 Elbow Wrist 3.4 19.0 56 >45 Elbow ? 6.7 6.5 7.4 89.0 Left Radial Motor (Arm) Wrist ? 2.0 <2.5 5.3 >1.7 7.5 100.0 Wrist Arm 2.0 10.0 50 Mid Forearm ? 4.3 4.9 6.8 92.5 Mid Forearm Wrist 2.3 14.0 61 >60 Elbow ? 6.3 4.5 5.6 84.9 Elbow Mid Forearm 2.0 0.0 Left Ulnar Motor (Abd Dig Minimi) Wrist ? 3.0 <3.0 6.8 >5 8.2 100.0 B Elbow Wrist 2.5 16.0 64 >45 B Elbow ? 5.5 6.6 8.1 97.1 A Elbow B Elbow 1.6 10.0 63 >45 A Elbow ? 7.1 6.4 8.0 94.1 EMG ?Side Muscle Nerve Root Ins Act Fibs Psw Amp Dur Poly Recrt Int Pat Comment Left 1stDorInt Ulnar C8-T1 Nml Nml Nml Nml Nml 0 Nml Complete Left FlexCarRad Median C6-7 Nml Nml Nml Nml Nml 0 Nml Complete Left Biceps Musculocut C5-6 Nml Nml Nml Nml Nml 0 Nml Complete Left Triceps Radial C6-7-8 Nml Nml Nml Nml Nml 0 Nml Complete Left Deltoid Axillary C5-6 Nml Nml Nml Nml Nml 0 Nml Complete FINDINGS: All motor and sensory nerves tested showed normal latencies, amplitudes and conduction velocities. Concentric needle EMG was performed in selected muscles of the left upper extremity. Study did not reveal signs of electric abnormalities as shown in the table above. IMPRESSION: 1. This is a normal study. 2. There is no electrodiagnostic evidence for radial neuropathy, median neuropathy, ulnar neuropathy, brachial plexopathy, or cervical radiculopathy. Thank you for your kind referral. Skyla Barragan MD, NAHOMY Board Certified, [place] Board of Physical Medicine and Rehabilitation (ABPMR) Board Certified, [place] Board of Electrodiagnostic Medicine (ABEM) CODIN [id number] [facility]
--- OUTSIDE RECORDS SUMMARY | 2025-05-29 10:06 | XMS_ITS | Patient Health Record ---
Author Organization [facility] Address [address] [place] [address] Care Team Providers Care Recruiting And Selection Consultant Name Role Phone Mei JACKSON, Raquel Primary [...] Status Risk Notes Problem Colon cancer screening (263164657) Colon cancer screening (Z12.11) Active confirmed Problem Epigastric pain (23135506) Epigastric pain (R10.13) Active confirmed Plan Of Treatment Future Test Test Name Order Date UPPER GI ENDOSCOPY 04/21/2016 COLONOSCOPY 04/21/2016 Insurance Providers Payer Name Payer Address Payer Phone Subscriber Number Group Number Insured Name Patient Relationship to Insured Coverage Start Date Coverage End Date MEDICAID OF [facility] [address] [place] [address] [id number] JAIME ROSALES Self - patient is the insured Medical (General) History Medical History History ICD Code asthma bipolar disorder prediabetic Surgical History Surgery Date(Month/Year) ablasion uterus
--- OUTSIDE RECORDS SUMMARY | 2025-05-29 10:06 | XMS_ITS | Clinical Summary ---
Author Organization [facility] Address [address] [place] [address] Care Team Providers Care Video Operator Name Role Phone Raquel Hurley MD [...] topic Insurance [employer] Care Teams Video Operator Relationship Specialty Start Date End Date Raquel Hurley MD [address] [place] [address] PCP - General Internal Medicine 10/17/22
== END 2025-05-29 09:17 | disposition home or self-care (01) ==
LOC: HO.NEURO 09:16
PROVIDERS: PCP Internal Medicine
DX: R20.2 Paresthesia of skin (principal); R20.0 Anesthesia of skin
CPT/HCPCS: 95886; 95910

== ENCOUNTER → 2025-05-29 09:19 | Outpatient (BNV) | payer OTHER, SELFPAY | PROVIDERS: PCP Internal Medicine; Visit Provider Physical Medicine & Rehabilitation | DX: M79.602 Pain in left arm (principal); R20.0 Anesthesia of skin | CPT/HCPCS: 95886; 95910 ==

== ENCOUNTER 2025-06-05 08:36 | Outpatient (AMB) | payer OTHER, SELFPAY ==
--- OUTSIDE RECORDS SUMMARY | 2025-06-05 08:56 | XMS_ITS | Patient Health Record ---
Author Organization [facility] Address [address] [place] [address] Care Team Providers Care Regional Environmental Manager Name Role Phone Mei JACKSON, Raquel [...] Status Risk Notes Problem Colon cancer screening (553866655) Colon cancer screening (Z12.11) Active confirmed Problem Epigastric pain (73230033) Epigastric pain (R10.13) Active confirmed Plan Of Treatment Future Test Test Name Order Date UPPER GI ENDOSCOPY 04/21/2016 COLONOSCOPY 04/21/2016 Insurance Providers Payer Name Payer Address Payer Phone Subscriber Number Group Number Insured Name Patient Relationship to Insured Coverage Start Date Coverage End Date MEDICAID OF [facility] [address] [place] [phone] [id number] JAIME ROSALES Self - patient is the insured Medical (General) History Medical History History ICD Code asthma bipolar disorder prediabetic Surgical History Surgery Date(Month/Year) ablasion uterus
--- OUTSIDE RECORDS SUMMARY | 2025-06-05 08:56 | XMS_ITS | Clinical Summary ---
Author Organization [facility] Address [address] [place] [address] Care Team Providers Care Housing Quality Standard Inspector Name Role Phone Raquel Hurley MD [...] this topic Insurance [employer] Care Teams Housing Quality Standard Inspector Relationship Specialty Start Date End Date Raquel Hurley MD [address] [place] [address] PCP - General Internal Medicine 10/17/22
--- NOTE | 2025-06-05 09:08 | A.OFFPC_ITS ---
Vital Signs 06/05/25 09:09 Height 5 ft 2 in Weight 254 lb BMI 46.5 BP 138/70 Blood Pressure Location Lt brachial Position Sitting Respiration 16 Pulse 69 Pulse Source Pulse Oximeter Temp 98.0 F Temp Source Oral Pulse Oximetry (%) 98 Oxygen Delivery Method Room Air Intake Visit Reasons: Annual Intake Note: Pt is here today for her PE: last mammogram 03/13/25, papsmear 02/07/23, colonoscopy 06/11/16 [employer] Required: No Allergies No Known Allergies (No Known Allergies*) Allergy (Verified 06/05/25 09:44) Medication List - Last Reconciled 06/05/25 by Raquel Hurley MD acetaminophen mg PO albuterol sulfate 90 mcg/actuation 2 inhalations inhalation Q6H PRN atorvastatin 20 mg PO DAILY blood-glucose meter (FreeStyle Lite Meter kit) As directed bupropion HCl XL 300 mg PO QAM carbamazepine (Tegretol) 200 mg PO TID cetirizine 10 mg PO BEDTIME clobetasol 0.05% 1 appl topical BID 2 weeks diclofenac sodium 1% (Arthritis Pain (diclofenac)) 2 grams topical QID PRN fenofibrate nanocrystallized 145 mg PO DAILY fluticasone propionate 50 mcg/actuation 1 spray intranasal DAILY FreeStyle Lite Strips (blood sugar diagnostic) Check fasting glucose once a day before meal or 2 hours after each NS gabapentin 300 mg PO TID ibuprofen 600 mg PO Q6H PRN lancets (FreeStyle Lancets) Check goes before meal, or 2 hours after lithium carbonate ER 300 mg PO TID naproxen (Naprosyn) 500 mg PO BID omega-3 fatty acids-fish oil 300-1,000 mg 1 cap PO BID omeprazole 20 mg PO DAILY [travel compression socks Wear 1st thing in the morning and remove at night] Tobacco use date assessed: 06/05/25 Dental Screening Dental Screen Date: 06/05/25 Did you have a dental visit in the last 12 months?: No Did you have a dental problem in the last 6 months where you did not have access to dental care?: No Was dental information given to patient?: Patient has dentist HPI Annual HPI Details 60-year-old lady with past medical histo ry significant for mixed dyslipidemia, prediabetes, history of trigeminal neuralgia of left side of face, osteoarthritis, bipolar disorder currently followed by psychiatry, mild intermittent asthma, GERD, psoriasis , who is here today for her physical exam. Had a normal bone density scan in 2023, last mammogram done earlier this year showed normal findings. Colonoscopy screening done by Dr. Giles in 2015 came back with negative findings, due for a repeat colonoscopy in 2025. Already received her flu vaccine in April 2025, up-to-date with her pneumonia vaccination, shingles and Tdap. Does not want to get a COVID booster She has impaired fasting glucose with latest HbA1c of 6.1%, which is unchanged since February but an increase from 5.8% in October. Her triglycerides are elevated at 208 mg/dL, though her total cholesterol is less than 200 mg/dL, with good HDL and LDL levels. She takes two fish oil capsules at night. Recent labs also indicated that her kidney function is slowing down. Her vitamin D, B12, and folic acid levels are normal, and she is not anemic. For health maintenance, a mammogram earlier this year and a bone density scan in 2023 both showed normal findings. Her last colonoscopy screening was in 2015 with negative findings, and she is due for a repeat in 2025. She also had an upper endoscopy at the same time to monitor a small ulcer while on omeprazole. The patient is up to date with her flu, pneumonia, shingles, and Tdap vaccinations, but she does not want to get the COVID booster. Regarding lifestyle, the patient has gained weight and is planning to join a gym for regular exercise. She has a history of a fall where she cracked her elbow. The patient reports tingling in one of her hands but denies numbness or swelling in her feet. She had a nerve conduction study a week ago ordered by orthopedics, and the study was normal with no evidence of carpal tunnel syndrome. [facility] Medical History (Updated 06/10/25 @ 02:04 by Raquel Hurley MD) Prediabetes Trigeminal neuralgia of left side of face PTSD (post-traumatic stress disorder) Asthma Obesity Trigeminal neuralgia Spells of decreased attentiveness Pedal edema Hx of fall Fracture of humerus, proximal, left, closed Intertrigo Tinea corporis ASCUS with positive high risk HPV Seasonal allergies Bipolar disorder Vitamin D deficiency Menopause Mild intermittent asthma GERD (gastroesophageal reflux disease) Psoriasis Impaired fasting glucose Mixed dyslipidemia Surgical History History of endometrial ablation Family History Father History of CVA (cerebrovascular accident) Lung cancer Depression Mother Diabetes mellitus Maternal Grandmother Diabetes mellitus Breast cancer Maternal Aunt Breast cancer Diabetes mellitus Maternal Uncle Colon cancer Brother No problems noted. Brother No problems noted. Sister Seizure Sister Seizure Son Mental health disorder Son No problems noted. Social History Household Members: None Housing: Apartment Alcohol intake: never Patient Tobacco Use Status: Former Tobacco user Years Smoked: 15 yrs e-Cigarette/Vaping Use: Never Used Second Hand Smoke Exposure: Yes service: No Current occupational status: employed Current occupation: right hand dominant/ [employer] Sexual orientation: Straight/Heterosexual Gender identity: Female Cognitive needs: No Hearing needs: No Vision needs: Yes Questionnaire PHQ-9 Over the last 2 weeks, how often have you been bothered by any of the following problems? 1. Little interest or pleasure in doing things: not at all 2. Feeling down, depressed, or hopeless: not at all 3. Trouble falling or staying asleep, or sleeping too much: not at all 4. Feeling tired or having little energy: not at all 5. Poor appetite or overeating: not at all 6. Feeling bad about yourself - or that you are a failure or have let yourself or your family down: not at all 7. Trouble concentrating on things, such as reading the newspaper or watching television: not at all 8. Moving or speaking so slowly that other people could have noticed. Or the opposite - being so fidgety or restless that you have been moving around a lot more than usual: not at all 9. Thoughts that you would be better off or of hurting yourself in some way: not at all Total score: 0 Depression Screening Interpretation: Negative Depression Screening Done: Yes Source: Developed by Drs. Brett Espinoza, Allison Rutledge, Yanick Mac and colleagues, with an educational aleksey from [employer]. Thrive Questionnaire Date Thrive assessed: 11/19/24 I am a: Patient What is your living situation today?: I have a steady place to live Within the past 12 months, did the food you bought not last and you didn't have the money to get more?: Never true Within the past 12 months, did you worry whether your food would run out before you got money to buy more?: Sometimes True Do you have trouble paying for medicines?: No Do you have trouble getting transportation to medical appointments?: No Do you have trouble paying your heating and electricity bill?: No Do you have trouble taking care of your child, family member or friend?: No Do you have trouble with day-to-day activities such as bathing, preparing meals, shopping, managing finances, etc.?: No Are you currently unemployed and looking for a job?: Yes Are you interested in more education?: No Please select the resources that you would like help with: None Currently or been in a relationship where the following occur: No concerns reported THRIVE Score: 1 AUDIT C Alcohol Use Questionnaire (AUDIT-C) 3. How often do you have six or more drinks on one occasion?: Never Total Score: 0 SAM-7 AMB Questionnaire SAM-7 Date SAM - 7 assessed: 06/05/25 Feeling nervous, anxious, or on edge: 0 = Not at all Not being able to stop or control worryin = Not at all Worrying too much about different things: 0 = Not at all Trouble relaxin = Not at all Being so restless that it is hard to sit still: 0 = Not at all Becoming easily annoyed or irritable: 0 = Not at all Feeling afraid as if something awful might happen: 0 = Not at all Total SAM-7 score (0-4 normal; 5-9 mild; 10-14 moderate; 15-21 severe): 0 Source: Developed by Drs. Brett Espinoza, Allison Rutledge, Yanick Mac and colleagues, with an educational aleksey from [employer]. SAM-7 Assessment Billing SAM-7 Assessment Tool: SAM-7 Assessment 65515 Review of Systems Const Denies body aches, Denies fever(s), Denies headache(s) and Denies weakness Eyes Details: [facility] Denies dizziness, Denies headache(s) and Denies nasal congestion Card Denies chest pain, Denies lightheadedness and Denies dyspnea Resp Denies chest congestion, Denies cough and Denies dyspnea GI Denies abdominal pain, Denies change in bowel habits and Denies heartburn Reports no additional complaints Musc Reports no additional complaints Skin/Breast Denies breast pain and Denies breast mass Neuro Denies dizziness, Denies headache(s) and Denies weakness Psych Reports no additional complaints Endo Reports no additional complaints Wagner/Lymph Denies easy bleeding and Denies easy bruising Aller/Immun Reports no additional complaints Physical exam (Primary Care) Vital Signs: Last Vital Signs Temp 98.0 F 06/05/25 09:09 Pulse 69 06/05/25 09:09 Resp 16 06/05/25 09:09 BP 138/70 06/05/25 09:09 Pulse Ox 98 06/05/25 09:09 Oxygen Delivery Method Room Air 06/05/25 09:09 BMI result Body Mass Index 46.5 Tobacco/Smoking Status: Tobacco use Status Tobacco use date assessed 06/05/25 06/05/25 09:36 Patient Tobacco Use Status Former Tobacco user 06/05/25 09:09 e-Cigarette/Vaping Use Never Used 06/05/25 09:09 PHQ-9: PHQ-9 Score PHQ-9: Total score 0 06/05/25 09:45 Depression Screening Interpretation: Negative Thrive Assessment: Date of Thrive Assessment Date Thrive assessed 11/19/24 06/05/25 09:09 Currently or been in a relationship where the following occur: No concerns reported Const General: no acute distress Nutritional Appearance: obese Orientation/consciousness: patient oriented x3 HENMT Head: Yes normocephalic Mouth: moist mucous membranes Eyes Pupils: Equal, round and reactive pupils present Neck Neck: Yes full ROM and Yes no lymphadenopathy Thyroid: Thyroid normal Chest Chest palpation & inspection: normal inspection of the chest Breast/axilla palpation: normal palpation of the breasts Resp Effort & Inspection: normal respiratory effort and able to speak in complete sentences Auscultation: clear to auscultation bilaterally Cardio Heart sounds: S1 normal heart sound present and S2 normal heart sound present GI Inspection: Yes Abdominal panniculus present and Yes obesity Palpation (GI): Soft to palpation, nontender and no guarding Auscultation: normal bowel sounds General: Yes no CVA tenderness Back/Spine/Pelvis Back: no CVA tenderness and No back tenderness Skin General skin exam: dry skin Neuro General: patient oriented x3, gait normal and moves all extremities Cranial nerves: Yes Equal, round and reactive pupils present and Yes Bilaterally intact EOM present Motor exam (neuro): 5/5 motor strength present throughout Extrem General: Yes full ROM Psych Speech and movement: Normal speech and movement present Results Reviewed Results Reviewed: Laboratory Tests 05/28/25 05/28/25 08:20 08:25 Estimat Average Glucose 128 Hemoglobin A1c % 6.1 H Urine Creatinine 147.58 Urine Microalbumin 9.0 Microalb/Creat Ratio 6.0 Name: Haritha Gallegos Age/Sex: 60/F : 1965 Unit#: [id number] Attend Dr: Raquel Hurley MD Re05/28/25 Status: DEP REF Location: [facility] Disch: SPEC : [id number] DIONE: 05/28/25 STATUS: COMP REQ : [id number] RECD: 05/28/[address]: Raquel Hurley MD COMP: 05/28/25 ENTERED: 05/28/[address]: ORDERED: Met Prof Fast, AST, ALT, Lipid Panel, Vitamin D 25-OH Test Result Flag Reference Sodium 141 135-145 mmol/L Potassium 4.3 3.3-5.1 mmol/L CL 106 96-108 mmol/L CO2 28 22-29 mmol/L Gap 11 L 12-20 BUN 13 9-16 mg/dL Creat 0.96 0.5-1.4 mg/dL eGFR 59 Chronic Kidney Disease: Estimated GFR < 60 mL/min/1.73m2 Severe Kidney Disease: Estimated GFR < 15 mL/min/1.73m2 FBS 117 H 60-99 mg/dL A fasting glucose from 100-125 mg/dl is considered impaired (pre-diabetes). CA 9.0 8.4-10.2 mg/dL AST (GOT) 34 H 5-31 U/L ALT (GPT) 15 0-31 U/L Triglyceride 208 H <150 mg/dL Desirable Triglyceride: less than 150 mg/dL Borderline High Triglyceride 150-199 mg/dL High Triglyceride: 200-499 mg/dL Very High Triglyceride: greater than or equal to 5OO mg/dL Cholesterol 166 <200 mg/dL Desirable Cholesterol: less than 200 mg/dL Borderline High Cholesterol: 200-239 mg/dL High Cholesterol: greater than 239 mg/dL LDL Calculated 80 <100 mg/dL Desirable LDL: less than 100 mg/dL Near Optimal/Above Optimal LDL: 110-129 mg/dL Borderline High LDL: 130-159 mg/dL High LDL: 160-189 mg/dL Very High LDL: greater than or equal to 190 mg/dL HDL 45 >40 mg/dL Desirable HDL: greater than 40 mg/dL Note: This HDL assay may give artificially low results in patients with liver disease. Vitamin D 25-OH 33.4 >30 ng/mL Health Based Reference Values* < 20 ng/mL Deficient 20-30 ng/mL Insufficient > 30 ng/mL Sufficient *Rigoberto MARQUEZ. N Engl J Med. 2007;[id number]:[id number] There is no well-established upper level of normal vitamin D levels. Some laboratories use 50 ng/mL as an upper limit of normal. However, toxicity is patient-dependent and may occur at any level. Careful correlation with the patient's presentation is necessary and, if there is concern for vitamin D toxicity, treatment should be considered irrespective of the serum level. Care must be taken in interpreting Vitamin D results from different laboratories and methodologies. Published data demonstrated that results from patients undergoing hemodialysis may show a negative bias when tested with various automated 25-OH vitamin D assays when compared to LC-MS/MS. When testing samples from patients whose predominant form of Vitamin D is Vitamin D2, such as patients receiving Vitamin D2 supplementation, results that are subtherapeutic should Coding Level of Care Code Est Pt Prev Care 40-64y(03764) Diagnoses Annual visit for general adult medical examination with abnormal findings Z00.01 Bipolar affective disorder, current episode depressed, current episode severity unspecified F31.30 Active/Remission status: currently active Current bipolar episode type: depressed Current episode severity: unspecified Mixed dyslipidemia E78.2 Impaired fasting glucose R73.01 Gastroesophageal reflux disease without esophagitis K21.9 Esophagitis presence: without esophagitis Trigeminal neuralgia of left side of face G50.0 Mild intermittent asthma without complication J45.20 Asthma complication type: uncomplicated Psoriasis L40.9 Additional Codes SAM-7 Assessment Billing - SAM-7 Assessment Tool: SAM-7 Assessment 34454 ([id number]) Assessment & Plan Assessment & Plan (1) Annual visit for general adult medical examination with abnormal findings: Code(s): Z00.01 - Encounter for general adult medical examination with abnormal findings Plan: Will check appropriate labs. Recommended dental visit every 6 months and regular eye exams, at least every 2 years. Take adequate calcium in diet and vitamin-D 3 at 2000 IU per cap once a day, in addition to weight-bearing exercises to help maintain good muscle tone and weight control. Instructed to do self-breast exam, and recommended to get yearly mammogram, currently up-to-date, with her cervical cancer screening . Reminded that she is due for repeat colon cancer screening next year (2) Bipolar disorder: Comment: followed at [facility] Code(s): F31.9 - Bipolar disorder, unspecified Category: Medical Qualifiers: Active/Remission status: currently active Current bipolar episode type: depressed Current episode severity: unspecified Qualified Code(s): F31.30 - Bipolar disorder, current episode depressed, mild or moderate severity, unspecified Plan: Currently sees therapist at [facility], symptoms controlled on lithium carbonate ER 300 mg 1 tablet 3 times a day and bupropion XL 300 mg daily in a.m. (3) Mixed dyslipidemia: Code(s): E78.2 - Mixed hyperlipidemia Category: Medical Plan: Reviewed recent fasting lipid profile with patient with levels within normal limits . Continue atorvastatin 20 mg daily , in addition to adherence to low-cholesterol diet and regular exercise, at least 30 minutes 3 to 4 times a week. Advised patient to make healthy food choices, eat more fruits, vegetables, whole grains, wild caught fish and low-fat dairy. Limit amount of meat and fried or fatty food products, as well as processed foods and fast foods. Follow-up scheduled with repeat fasting lipid panel in months. (4) Impaired fasting glucose: Code(s): R73.01 - Impaired fasting glucose Category: Medical Plan: Your previous fasting blood sugars were elevated above 100 mg/dL. Impaired glucose metabolism increases the risk for developing diabetes mellitus type 2, as well as heart attack and stroke later on. Lifestyle changes that promotes weight loss, healthy eating habits, and regular exercise are important, and can prevent the progression to diabetes (5) GERD (gastroesophageal reflux disease): Code(s): K21.9 - Gastro-esophageal reflux disease without esophagitis Category: Medical Qualifiers: Esophagitis presence: without esophagitis Qualified Code(s): K21.9 - Gastro-esophageal reflux disease without esophagitis Plan: Currently taking omeprazole 20 mg daily (6) Trigeminal neuralgia of left side of face: Code(s): G50.0 - Trigeminal neuralgia Category: Medical Plan: On carbamazepine 20 mg 1 tablet 3 times a day (7) Mild intermittent asthma: Code(s): J45.20 - Mild intermittent asthma, uncomplicated Category: Medical Qualifiers: Asthma complication type: uncomplicated Qualified Code(s): J45.20 - Mild intermittent asthma, uncomplicated Plan: As albuterol inhaler which she rarely uses (8) Psoriasis: Code(s): L40.9 - Psoriasis, unspecified Category: Medical Plan: Using clobetasol 0.05% cream applied sparingly to affected area twice a day for no more than 10 days at a time Orders: Orders Lipid Panel 6 Months E66.9 - Obesity, unspecified, E78.2 - Mixed hyperlipidemia, K21.9 - Gastro-esophageal reflux disease without esophagitis, R73.01 - Impaired fasting glucose Vitamin D 25-OH Total 6 Months E66.9 - Obesity, unspecified, E78.2 - Mixed hyperlipidemia, K21.9 - Gastro-esophageal reflux disease without esophagitis, R73.01 - Impaired fasting glucose Hemoglobin A1c 6 Months E66.9 - Obesity, unspecified, E78.2 - Mixed hyperlipidemia, K21.9 - Gastro-esophageal reflux disease without esophagitis, R73.01 - Impaired fasting glucose Basic Metabolic Panel Fasting 6 Months E66.9 - Obesity, unspecified, E78.2 - Mixed hyperlipidemia, K21.9 - Gastro-esophageal reflux disease without esophagitis, R73.01 - Impaired fasting glucose Aspartate Amino Transferase 6 Months E66.9 - Obesity, unspecified, E78.2 - Mixed hyperlipidemia, K21.9 - Gastro-esophageal reflux disease without esophagitis, R73.01 - Impaired fasting glucose Alanine Aminotransferase 6 Months E66.9 - Obesity, unspecified, E78.2 - Mixed hyperlipidemia, K21.9 - Gastro-esophageal reflux disease without esophagitis, R73.01 - Impaired fasting glucose
[2025-06-05 09:09] VITALS: BP 138/70; PULSE 69; RESP 16; TEMP 36.7; O2SAT 98; BMI 46.5
== END 2025-06-05 10:05 | disposition home or self-care (01) ==
LOC: HO.HMCC 08:36
PROVIDERS: PCP Internal Medicine; Visit Provider Internal Medicine
DX: Z00.01 Encounter for general adult medical examination with abnormal findings (principal); F31.30 Bipolar disorder, current episode depressed, mild or moderate severity, unspecified; E78.2 Mixed hyperlipidemia; R73.01 Impaired fasting glucose; K21.9 Gastro-esophageal reflux disease without esophagitis; G50.0 Trigeminal neuralgia; J45.20 Mild intermittent asthma, uncomplicated; L40.9 Psoriasis, unspecified

== ENCOUNTER → 2025-06-05 08:36 | Outpatient (BNVA) | payer OTHER, SELFPAY | PROVIDERS: PCP Internal Medicine; Visit Provider Internal Medicine | DX: Z00.01 Encounter for general adult medical examination with abnormal findings (principal); E78.2 Mixed hyperlipidemia; F31.30 Bipolar disorder, current episode depressed, mild or moderate severity, unspecified; R73.01 Impaired fasting glucose; K21.9 Gastro-esophageal reflux disease without esophagitis; G50.0 Trigeminal neuralgia; J45.20 Mild intermittent asthma, uncomplicated; L40.9 Psoriasis, unspecified; E66.9 Obesity, unspecified; Z68.42 Body mass index [BMI] 45.0-49.9, adult | CPT/HCPCS: 96127; 99396 ==

== ENCOUNTER 2025-06-19 17:10 | Emergency (ER) | payer OTHER, SELFPAY ==
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
[2025-06-19 17:16] VITALS: BP 120/80; PULSE 100; O2SAT 99
[2025-06-19 17:19] VITALS: BP 127/77; PULSE 96; PULSE 99; RESP 18; TEMP 36.9; O2SAT 96; O2SAT 98; BMI 45.7
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
--- OUTSIDE RECORDS SUMMARY | 2025-06-19 18:02 | XMS_ITS | Clinical Summary ---
Author Organization [facility] Address [address] [place] [address] Care Team Providers Care Rivet Driver Name Role Phone Raquel Hurley MD Primary [...] Annual Screening 07/25/2024 Influenza Vaccine (#1) 2025 2, 05/27/2021, 04/25/2019, Additional history exists COVID-19 Vaccine ( season) 2025 08/05/2021, 11/29/2020 DTaP,Tdap,and Td Vaccines (2 - Td or Tdap) 12/29/2027 12/28/2017 RSV Vaccine (60+ years old and patients) (1 - 1-dose 75+ series) 2039 Zoster Vaccines Completed 01/07/2021, 09/04/2020 Hepatitis B Vaccines Aged Out No long er eligible based on patient's age to complete this topic Insurance [place] [id number] Care Teams Rivet Driver Relationship Specialty Start Date End Date Raquel Hurley MD [address] [place] [address] PCP - General Internal Medicine 10/17/22
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
[2025-06-19 18:54] LABS: MANUAL DIFF FLAG NO
--- NOTE | 2025-06-19 18:57 | PC.NURSE ---
Away for CT scan.
[2025-06-19 19:08] LABS: Alanine Aminotransferase 15 U/L (0-31); Albumin Level 4.2 g/dL (3.5-5.0); Alkaline Phosphatase 56 U/L (39-117); Anion Gap 14 (12-20); Aspartate Amino Transferase 21 U/L (5-31); Blood Urea Nitrogen 12 mg/dL (9-16); Calcium 9.0 mg/dL (8.4-10.2); Carbon Dioxide 26 mmol/L (22-29); Chloride 104 mmol/L (96-108); Creatinine Clr Calc Pharmacy 82.7; Estimated Glomerular Filt Rate > 60; Magnesium 1.9 mg/dL (1.6-2.6); Potassium 3.8 mmol/L (3.3-5.1); Sodium 140 mmol/L (135-145); Total Protein 7.2 g/dL (6.5-8.0)
[2025-06-19 19:51] LABS: Hematocrit 38.4 % (37.0-47.0); Hemoglobin 13.1 g/dl (12.0-16.0); Imm Gran Abs Auto 0.05 X10*3/uL (0.00-0.03); Imm Gran Pct Auto 0.3 % (0.0-0.4); Lymphocytes Absolute Auto 1.3 X10*3/uL (1.2-4.9); Mean Corpuscular HGB Conc 34.1 g/dl (31.0-35.0); Mean Corpuscular Hemoglobin 29.2 pg (27.0-33.0); Mean Corpuscular Volume 85.5 fL (80.0-98.0); NRBC Abs Auto 0.000 X10*3/uL (0.0-0.012); NRBC Pct Auto 0.0 /100WBC (0.0-0.2); Platelet Count 287 X10*3/uL (160-400); Red Blood Count 4.49 X10*6/uL (4.20-5.50); White Blood Count 15.5 X10*3/uL (4.8-10.8)
[2025-06-19 21:14] VITALS: BP 122/75; PULSE 88; RESP 18; O2SAT 95
[2025-06-19 22:35] VITALS: BP 122/75; PULSE 88; RESP 18; TEMP 36.8; O2SAT 95
== END 2025-06-19 22:35 | disposition home or self-care (01) ==
PROVIDERS: Emergency Provider Student in an Organized Health Care Education/Training Program; PCP Internal Medicine
DX: S20.219A Contusion of unspecified front wall of thorax, initial encounter (principal); T14.8XXA Other injury of unspecified body region, initial encounter; V47.6XXA Car passenger injured in collision with fixed or stationary object in traffic accident, initial encounter; Y93.9 Activity, unspecified; Y92.410 Unspecified street and highway as the place of occurrence of the external cause; Y99.9 Unspecified external cause status
CPT/HCPCS: 36415; 70450; 71260; 72125; 74177; 80053; 83735; 85025; 93005; 99284; 99285

== ENCOUNTER → 2025-06-19 18:17 | Outpatient (BNV) | payer OTHER, SELFPAY | PROVIDERS: Emergency Provider Student in an Organized Health Care Education/Training Program; PCP Internal Medicine; Visit Provider Radiology Diagnostic Radiology | DX: R19.00 Intra-abdominal and pelvic swelling, mass and lump, unspecified site (principal); R16.0 Hepatomegaly, not elsewhere classified; R07.89 Other chest pain; V89.9XXA Person injured in unspecified vehicle accident, initial encounter; Z04.3 Encounter for examination and observation following other accident | CPT/HCPCS: 70450; 71260; 72125; 74177 ==

== ENCOUNTER → 2025-06-19 18:21 | Outpatient (BNV) | payer OTHER, SELFPAY | PROVIDERS: Emergency Provider Student in an Organized Health Care Education/Training Program; PCP Internal Medicine; Visit Provider Internal Medicine Cardiovascular Disease | DX: Z04.3 Encounter for examination and observation following other accident (principal) | CPT/HCPCS: 93010 ==

== ENCOUNTER 2025-07-02 09:37 | Outpatient (AMB) | payer OTHER, SELFPAY ==
[2025-07-02 10:38] VITALS: BP 110/72; PULSE 72; RESP 16; TEMP 36.8; O2SAT 98; BMI 45.7
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
== END 2025-07-02 12:36 | disposition home or self-care (01) ==
PROVIDERS: PCP Internal Medicine; Visit Provider Internal Medicine
DX: Z87.828 Personal history of other (healed) physical injury and trauma (principal); R22.2 Localized swelling, mass and lump, trunk; S20.02XD Contusion of left breast, subsequent encounter

== ENCOUNTER 2025-07-04 08:23 | Outpatient (AMB) | payer OTHER, SELFPAY ==
[2025-07-04 08:43] VITALS: BP 116/67; BMI 46.3
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
== END 2025-07-04 09:31 | disposition home or self-care (01) ==
LOC: HO.HWS 08:24
PROVIDERS: Visit Provider Advanced Practice Midwife
DX: Z01.419 Encounter for gynecological examination (general) (routine) without abnormal findings (principal)
CPT/HCPCS: 99396; 99459

== ENCOUNTER → 2025-07-04 08:23 | Outpatient (BNVA) | payer OTHER, SELFPAY | PROVIDERS: Visit Provider Advanced Practice Midwife | DX: Z01.419 Encounter for gynecological examination (general) (routine) without abnormal findings (principal); Z71.3 Dietary counseling and surveillance; Z68.42 Body mass index [BMI] 45.0-49.9, adult | CPT/HCPCS: 99396 ==

== ENCOUNTER 2025-07-05 10:40 | Outpatient (AMB) | payer OTHER, SELFPAY ==
[2025-07-05 10:48] VITALS: BMI 46.3
--- NOTE | 2025-07-05 10:48 | MHC.OFFVIS ---
Vital Signs 07/05/25 10:48 Height 5 ft 2 in Weight 253 lb BMI 46.3 Intake Visit Reasons: OV-LT hand emg review Intake Note: Haritha 60 yr old right hand dominant presents today to review her EMG results for her left hand. IMPRESSION: 1. This is a normal study. 2. There is no electrodiagnostic evidence for radial neuropathy, median neuropathy, ulnar neuropathy, brachial plexopathy, or cervical radiculopathy. Allergies No Known Allergies (No Known Allergies*) Allergy (Verified 07/05/25 10:49) HPI HPI OV-LT hand emg review: Details: Haritha 60 yr old right hand dominant presents today to review her EMG results for her left hand. Patient reports that her symptoms have improved slightly from previous evaluation, although she does still experience intermittent but not daily numbness in the left hand. No other acute complaints or concerns at this time. IMPRESSION: 1. This is a normal study. 2. There is no electrodiagnostic evidence for radial neuropathy, median neuropathy, ulnar neuropathy, brachial plexopathy, or cervical radiculopathy. [facility] Medical History Prediabetes Trigeminal neuralgia of left side of face PTSD (post-traumatic stress disorder) Asthma Obesity Trigeminal neuralgia Spells of decreased attentiveness Pedal edema Hx of fall Fracture of humerus, proximal, left, closed Intertrigo Tinea corporis ASCUS with positive high risk HPV Seasonal allergies Bipolar disorder Vitamin D deficiency Menopause Mild intermittent asthma GERD (gastroesophageal reflux disease) Psoriasis Impaired fasting glucose Mixed dyslipidemia Surgical History History of endometrial ablation Family History Father History of CVA (cerebrovascular accident) Lung cancer Depression Mother Diabetes mellitus Maternal Grandmother Diabetes mellitus Breast cancer Maternal Aunt Breast cancer Diabetes mellitus Maternal Uncle Colon cancer Brother No problems noted. Brother No problems noted. Sister Seizure Sister Seizure Son Mental health disorder Son No problems noted. Social History Household Members: None Housing: Apartment Alcohol intake: never Patient Tobacco Use Status: Former Tobacco user Years Smoked: 15 yrs e-Cigarette/Vaping Use: Never Used Second Hand Smoke Exposure: Yes service: No Current occupational status: employed Current occupation: right hand dominant/ [employer] Sexual orientation: Straight/Heterosexual Gender identity: Female Cognitive needs: No Hearing needs: No Vision needs: Yes Physical Exam Vital Signs: BMI result Body Mass Index 46.3 Extrem Other: Neuro: Normal sensation of the tips of all digits of the left hand in the office today No thenar or intrinsic wasting. Good APB muscle firing and good finger cross. Vascular: Capillary refill brisk. ROM: Patient can make a fist and extend all their digits. Skin: No lacerations or abrasions noted. General: No ecchymosis. No erythema or evidence of infection. Assessment & Plan Assessment & Plan (1) Numbness and tingling of left hand: Code(s): R20.0 - Anesthesia of skin; R20.2 - Paresthesia of skin Category: Medical Plan 1. Numbness and tingling of the left hand, with associated pain Symptoms intermittent, daily, worse at night Patient is educated about this condition As patient is getting better, and EMG was negative, there is no acute intervention indicated at this time Patient is educated if she continues to experience numbness and tingling in 6 months, she should call us for repeat EMG Patient understands this and is amenable to this plan Follow-up as needed Coding Level of Care Code Est Pt Level 3 (96401) Diagnoses Numbness and tingling of left hand R20.0; R20.2
== END 2025-07-05 11:19 | disposition home or self-care (01) ==
PROVIDERS: PCP Internal Medicine
DX: R20.0 Anesthesia of skin (principal); R20.2 Paresthesia of skin
CPT/HCPCS: 99213

== ENCOUNTER → 2025-07-05 10:40 | Outpatient (BNVA) | payer OTHER, SELFPAY | PROVIDERS: PCP Internal Medicine; Visit Provider Physician Assistant | DX: R20.2 Paresthesia of skin (principal); R20.0 Anesthesia of skin; M79.642 Pain in left hand | CPT/HCPCS: 99212 ==